=== PATIENT | female | born 1965 | race Caucasian/White ===

== ENCOUNTER 2017-01-13 19:53 | Inpatient (IN) ==
[2017-01-13] MEDS ORDERED: 0.9 % Sodium Chloride 1,000 ML IVC ONE ×3 (20:18→21:02)
--- NOTE | 2017-01-13 20:25 | Emergency Department Note ---
Disposition Clinical Impression: Colitis Sepsis Qualifiers: Sepsis type: sepsis due to unspecified organism Qualified Code(s): A41.9 - Sepsis, unspecified organism GI bleed Qualifiers: GI bleed type/associated pathology: unspecified gastrointestinal hemorrhage type Qualified Code(s): K92.2 - Gastrointestinal hemorrhage, unspecified Abdominal pain Qualifiers: Abdominal location: generalized Qualified Code(s): R10.84 - Generalized abdominal pain Disposition: Admitted As Inpatient Condition: Serious Time of Disposition: 22:07 Abdominal Pain HPI - General Chief Complaint: ED GI Bleed Stated Complaint: rectal bleeding Time Seen by Provider: 01/13/17 20:15 Source: family Mode of arrival: ambulatory Limitations: no limitations Nursing Notes Reviewed: Yes Vital Signs Reviewed: Yes - History of Present Illness HPI Narrative: 51-year-old female hx of HTN, DM, post EGD on 12/10 complaining of abdominal pain, patient's complaint of 10 out of 10 pain that she describes as lower abdominal, and diffuse. She also states that she has been having some bloody diarrhea today. She when her last colonoscopy was but she had an EGD a few weeks ago. Patient states that her pain is diffuse, she decided rectal bleeding today, her last meal was around lunch. She has been able to drink water since then. Patient has nausea and emesis as well but denies hematochezia. Pt Subjective Complaint: abdominal pain Onset (ago): day(s) Consistency: constant Location: diffuse Pain Severity: severe Pain Scale: 10 Quality: stabbing, aching Radiation: none Migration to: no migration Improves with: nothing Worsens with: nothing Associated symptoms: Reports: nausea, vomiting, hematochezia. Denies: diarrhea , fever, dysuria, hematemesis, melena - Related Data Home Medications Medication Instructions Recorded Confirmed Acetaminophen w/Cod 300-30 mg 1 tab PO Q12H PRN 06/04/16 01/13/17 [Tylenol w/Codeine #3] Albuterol Sulfate [Proair Hfa] 1 - 2 puff IH Q4-6H PRN 06/04/16 01/13/17 Amlodipine Besylate 10 mg PO DAILY 06/04/16 01/13/17 Aspirin [Ecotrin] 325 mg PO DAILY 06/04/16 01/13/17 Atorvastatin Calcium [Lipitor] 20 mg PO HS 06/04/16 01/13/17 Cholecalciferol (D-3) [Vitamin D] 2,000 unit PO DAILY 06/04/16 01/13/17 Cyclobenzaprine HCl 2.5 - 5 mg PO TID PRN 06/04/16 01/13/17 FLUoxetine HCl [Fluoxetine HCl] 40 mg PO DAILY 06/04/16 01/13/17 Ferrous Sulfate [Iron] 325 mg PO BID 06/04/16 01/13/17 Gabapentin [Neurontin] 300 mg PO TID 06/04/16 01/13/17 Glimepiride [Amaryl] 1 mg PO BID 06/04/16 01/13/17 Lisinopril/Hydrochlorothiazide 1 tab PO BID 06/04/16 01/13/17 [Zestoretic 20-12.5 mg Tablet] Loratadine [Allergy Relief] 10 mg PO DAILY 06/04/16 01/13/17 Magnesium Oxide [Magnesium] 400 mg PO BID 06/04/16 01/13/17 Pantoprazole Sodium [Protonix] 40 mg PO DAILY 06/04/16 01/13/17 Ranitidine HCl [Zantac] 150 mg PO BID 06/04/16 01/13/17 Spironolactone [Aldactone] 50 mg PO DAILY 06/04/16 01/13/17 Amitriptyline [Elavil] 25 mg PO HS 01/13/17 01/13/17 Allergies Allergy/AdvReac Type Severity Reaction Status Date / Time clonidine Allergy Blister Verified 01/13/17 20:12 All systems ED: reviewed and negative except as stated. Review of Systems: As Per HPI Constitutional: Reports: fever, chills Eyes: Denies: eye pain ENT ED: Denies: ear pain Cardiovascular: Denies: chest pain Respiratory: Denies: cough, dyspnea Gastrointestinal: Reports: as per HPI, abdominal pain, nausea, vomiting, diarrhea, hematochezia Genitourinary: Denies: urgency, dysuria Musculoskeletal: Denies: back pain Integumentary: Denies: rash, abrasion Neurological: Denies: headache Psychiatric: Denies: anxiety Abdominal Pain PMH - Past Medical History Medical history: Reports: arthritis, diabetes, GERD, hyperlipidemia, hypertension, renal disease Female Surgical History: Reports: appendectomy, Psychiatric history: Reports: anxiety - Social History Smoking status: Never smoker Alcohol use: Reports: none Drug use: Reports: none Physical Exam - General Limitations: no limitations General appearance: appears intoxicated, anxious, in distress - Eye Eye exam: Present: normal appearance - ENT ENT exam: normal exam - Neck Neck exam: Present: normal inspection - Chest Chest inspection: Present: normal inspection - Respiratory Respiratory exam: Present: normal lung sounds bilaterally. Absent: respiratory distress - Cardiovascular Cardiovascular exam: Present: normal rhythm, tachycardia - Abdominal Exam Abdominal exam: Present: tenderness, guarding, rebound Abdominal tenderness: Present: diffuse, severe - Extremities Exam Extremities exam: Present: normal inspection, full ROM - Neurological Exam Neurological exam: Present: alert, oriented X3, CN II-XII intact - Psychiatric Psychiatric exam: Present: normal affect, anxious - Skin Skin exam: Present: warm, dry, intact Course Course Narrative: 51-year-old female with diffuse abdominal pain post EGD, also has history of diverticulitis, her exam has some guarding diffusely, with a CT scan of the abdomen basic lab work CBC BMP fluids as she is moderately tachycardic. - Reevaluation(s) Reevaluation #1: Patient is criteria for septic shock given lactate of 4.0, we added a 30 mL per kilogram bolus of fluid, she got blood cultures and started him. Cipro and Flagyl antibiotics for intra-abdominal infection, the patient also has white count of 15,000, colitis on CT imaging but no evidence of ischemic colitis or bowel perforation, she does have moderate tenderness to palpation so will likely be a medicine admission with surgery consult I did page the general surgeon to discuss colitis at this time. Time: 21:49 Reevaluation #2: General surgeon evaluated the patient bedside no acute surgical abdomen, recommendations for nothing by mouth IV fluids agrees with antibiotics, I did talk with hospitalist Dr. Quiroga, they agreed to admit the patient for GI bleed sepsis meets criteria for septic shock repeat lactic acid is ordered, antibiotics cultures lactate were started within the 3 hours and the patient is hemodynamically stable now blood pressures in the 100s over 50s, Time: 22:52 - Consultations Consultation #1: I did consult general surgeon Dr. Arce she is evidence of a colitis, inflammatory versus infectious, cannot rule out ischemic would like surgical input given guarding, also patient's lactic acidosis of 4.0 technically meets criteria for septic shock given elevated lactate so 30 mL Perkg bolus, initial cultures and lactate repeat lactate were ordered within the septic window, reassessments will will be performed Vital Signs Temperature 97.7 F 01/13/17 20:09 Pulse Rate 130 01/13/17 20:09 Respiratory Rate 20 01/13/17 20:09 Blood Pressure 121/83 01/13/17 20:09 O2 Sat by Pulse Oximetry 100 01/13/17 20:09 Temperature 98.7 F 01/14/17 00:41 Pulse Rate 105 01/13/17 23:52 Respiratory Rate 16 01/13/17 23:52 Blood Pressure 100/62 01/13/17 23:52 O2 Sat by Pulse Oximetry 96 01/13/17 23:52 Oxygen Delivery Oxygen Delivery Room Air Abdominal Pain - Differential Diagnosis Differential Diagnosis: Likely: acute appendicitis, constipation, diverticulitis , diverticulosis, gastroenteritis - Medical Records Medical records reviewed: Yes I reviewed the patient's medical records. - Lab Data Lab results reviewed: Yes I reviewed the patient's lab results. Result diagrams: 01/13/17 20:24 01/13/17 20:24 Lab Results 01/13/17 01/13/17 01/13/17 Range/Units 20:10 20:24 20:24 WBC 15.5 H (4.3-11.1) K/mcL RBC 4.51 (3.82-4.97) M/mcL Hgb 14.2 (11.5-15.4) g/dL Hct 39.6 (35.3-44.9) % MCV 87.8 (83.0-100.0) fL MCH 31.5 (28.0-33.3) pg MCHC 35.9 H (31.6-35.5) g/dL RDW 13.1 (11.5-14.5) % Plt Count 277 (140-400) K/mcL MPV 10.7 (9.4-12.4) fL Immature Gran % 1.2 (0-4) % Seg Neutrophils % 82.9 % Lymphocytes % 10.5 % Monocytes % 4.9 % Eosinophils % 0.1 % Basophils % 0.4 % Neutrophils # 12.8 H (1.6-8.9) K/mcL Lymphocytes # 1.6 (0.6-4.6) K/mcL Monocytes # 0.8 (0.0-1.3) K/mcL Eosinophils # 0.0 (0.0-0.6) K/mcL Basophils # 0.1 (0.0-0.2) K/mcL PT 10.3 (9.4-12.1) Seconds INR 1.0 APTT 26.7 (26.0-36.0) Seconds Sodium (136-145) mEq/L Potassium (3.5-4.5) mEq/L Chloride (98-109) mEq/L Carbon Dioxide (19-29) mEq/L BUN (7-20) mg/dL Creatinine (0.57-1.11) mg/dL Est GFR ( Amer) (> 60) Est GFR (Non-Af Amer) (> 60) BUN/Creatinine Ratio (6-26) Glucose (70-99) mg/dL Calculated Osmolality (280-300) Lactic Acid (0.5-2.2) mmol/L Calcium (8.6-10.8) mg/dL Total Bilirubin (0.2-1.2) mg/dL AST (5-34) Units/L ALT (0-55) Units/L Alkaline Phosphatase (38-126) Units/L Serum Total Protein (6.0-8.3) g/dL Albumin (3.5-5.0) g/dL Globulin (2.4-3.5) g/dL Albumin/Globulin Ratio (1.1-2.2) Urine Color Yellow (Yellow) Urine Clarity Cloudy A (Clear) Urine pH 6.0 (5.0-8.0) pH Units Ur Specific [place] 1.027 H (1.010-1.025) Urine Protein Trace (Neg-Trace) mg/dL Urine Glucose (UA) 250 H (Normal) mg/dL Urine Ketones Trace H (Negative) mg/dL Urine Blood Moderate H (Negative) Urine Nitrite Negative (Negative) Urine Bilirubin Small H (Negative) Urine Urobilinogen Normal (Normal) mg/dL Ur Leukocyte Esterase Moderate H (Negative) Urine Microscopic RBC 50-100 H (0-3) per hpf Urine Microscopic WBC 50-100 H (0-3) per hpf Ur Squamous Epith Cells Many H (None-Few) per lpf Urine Bacteria None Seen (None-Few) per hpf Hyaline Casts None Seen (None-Few) per lpf Ur Culture Indicated? YES A (NO) Blood Type Antibody Screen 01/13/17 01/13/17 01/13/17 Range/Units 20:24 20:24 20:43 WBC (4.3-11.1) K/mcL RBC (3.82-4.97) M/mcL Hgb (11.5-15.4) g/dL Hct (35.3-44.9) % MCV (83.0-100.0) fL MCH (28.0-33.3) pg MCHC (31.6-35.5) g/dL RDW (11.5-14.5) % Plt Count (140-400) K/mcL MPV (9.4-12.4) fL Immature Gran % (0-4) % Seg Neutrophils % % Lymphocytes % % Monocytes % % Eosinophils % % Basophils % % Neutrophils # (1.6-8.9) K/mcL Lymphocytes # (0.6-4.6) K/mcL Monocytes # (0.0-1.3) K/mcL Eosinophils # (0.0-0.6) K/mcL Basophils # (0.0-0.2) K/mcL PT (9.4-12.1) Seconds INR APTT (26.0-36.0) Seconds Sodium 133 L (136-145) mEq/L Potassium 4.5 (3.5-4.5) mEq/L Chloride 98 (98-109) mEq/L Carbon Dioxide 18 L (19-29) mEq/L BUN 20 (7-20) mg/dL Creatinine 1.17 H (0.57-1.11) mg/dL Est GFR ( Amer) 59 L (> 60) Est GFR (Non-Af Amer) 48 L (> 60) BUN/Creatinine Ratio 17 (6-26) Glucose 234 H (70-99) mg/dL Calculated Osmolality 286 (280-300) Lactic Acid 4.0 H* (0.5-2.2) mmol/L Calcium 9.8 (8.6-10.8) mg/dL Total Bilirubin 0.5 (0.2-1.2) mg/dL AST 13 (5-34) Units/L ALT 24 (0-55) Units/L Alkaline Phosphatase 93 (38-126) Units/L Serum Total Protein 7.6 (6.0-8.3) g/dL Albumin 3.8 (3.5-5.0) g/dL Globulin 3.8 H (2.4-3.5) g/dL Albumin/Globulin Ratio 1.0 L (1.1-2.2) Urine Color (Yellow) Urine Clarity (Clear) Urine pH (5.0-8.0) pH Units Ur Specific [place] (1.010-1.025) Urine Protein (Neg-Trace) mg/dL Urine Glucose (UA) (Normal) mg/dL Urine Ketones (Negative) mg/dL Urine Blood (Negative) Urine Nitrite (Negative) Urine Bilirubin (Negative) Urine Urobilinogen (Normal) mg/dL Ur Leukocyte Esterase (Negative) Urine Microscopic RBC (0-3) per hpf Urine Microscopic WBC (0-3) per hpf Ur Squamous Epith Cells (None-Few) per lpf Urine Bacteria (None-Few) per hpf Hyaline Casts (None-Few) per lpf Ur Culture Indicated? (NO) Blood Type O POSITIVE Antibody Screen NEGATIVE - Radiology Data Radiology results reviewed: Yes I reviewed the patient's radiology results. Abdomen/Pelvis CT 01/13/17 20:19 IMPRESSION: 1. Mild inflammation surrounding the descending colon. Findings are nonspecific and may represent infectious or inflammatory colitis. However sequela of recent colonoscopy is also in the differential. 2. No pneumoperitoneum. 3. Colonic diverticulosis. 4. Small 1.9 cm fatty lesion with a thin soft tissue rim in the lower pelvis, immediately anterior to the ureters. This is not seen on the prior study and likely represents sequela of prior epiploic appendagitis or omental infarct. 5. Hepatic steatosis. D/ / 01/13/2017 21:36:02 Joel Laird MD / Freda Lowe Interpreting Provider: Joel Laird MD - EKG Data EKG attestation: Yes I reviewed and interpreted this EKG. EKG shows normal: sinus rhythm (122 bpm GA 184 QRS [address] segment elevations or depressions) Rate: tachycardia Interpretation: no acute changes - Core Measures AMI Core Measures Followed: No Critical Care Time Critical Care Time: Yes Total Critical Care Time: 35 Attestation: Critical care performed: Time is exclusive of separately billable procedures. Time includes: direct patient care, patient reassessment, coordination of patient care, interpretation of data (laboratory data, radiology data, and respiratory data), review of patient's medical records, medical consultation and documentation of patient care. Procedures included in critical care time: Procedures excluded from critical care time: Attestation Statement - Attestation Attestation: I, Alejandro Valle MD, personally evaluated this patient and discussed their management with the resident physician. I reviewed the resident's note and agree with the documented findings, medical decision making, and plan of care. 51-year-old female presents to the emergency department complaining of mid lower abdominal pain which started earlier today associated with bloody diarrhea. She also has had some nausea and vomiting. No melena or hematemesis. No fever. Patient did have an EGD about a week ago. She did not have a colonoscopy. No prior history of GI bleeding. On examination patient is a well-developed well-nourished female in no acute distress. She is alert and oriented 3. There is no cyanosis or diaphoresis. Chest is nontender to palpation. Breath sounds are clear and equal bilaterally. Heart regular rate and rhythm. Abdomen is soft with increased bowel sounds. Mild diffuse tenderness with moderate mid lower abdominal tenderness. No guarding or rebound tenderness. No CVA tenderness. Labs reviewed. CT of the abdomen and pelvis with IV contrast showed: 1. Mild inflammation surrounding the descending colon. Findings are nonspecific and may represent infectious or inflammatory colitis. However sequela of recent colonoscopy is also in the differential. 2. No pneumoperitoneum. 3. Colonic diverticulosis. 4. Small 1.9 cm fatty lesion with a thin soft tissue rim in the lower pelvis, immediately anterior to the ureters. This is not seen on the prior study and likely represents sequela of prior epiploic appendagitis or omental infarct. 5. Hepatic steatosis. Dr. Rodriguez discussed the case with the surgeon on-call, Dr. Gruber. He did evaluate the patient in the emergency department and recommended admission by the hospitalist. The hospitalist, Dr. Rubin, was consulted and accepted the admission of the patient. Sepsis Reassessment Note - Evaluation Current Stage of Sepsis: septic shock Possible Source of Sepsis: GI tract/intra-abdominal - Focused Exam Date of Encounter: 01/13/17 Time of Encounter: 20:00 Vital Signs: Vital Signs Temp Pulse Resp BP Pulse Ox 01/13/17 22:15 108 18 105/42 98 01/13/17 20:09 97.7 F 130 20 121/83 100 Respiratory Exam: Present: CTA bilaterally Cardiovascular Exam: Present: tachycardia Capillary Refill: < 2 seconds Peripheral Pulse Strength: 0+ absent Peripheral Pulse Location: Radial Skin Exam: normal turgor
[2017-01-13 20:28] LABS: Bilirubin,Urine Small (Negative); Blood,Urine Moderate (Negative); Clarity,Urine Cloudy (Clear); Color,Urine Yellow (Yellow); Glucose,Urine (UA) 250 mg/dL (Normal); Ketones,Urine Trace mg/dL (Negative); Leukocyte Esterase,Urine Moderate (Negative); Nitrite,Urine Negative (Negative); Protein,Urine Trace mg/dL (Neg-Trace); Specific Gravity,Urine 1.027 (1.010-1.025); Urobilinogen,Urine Normal (Normal)
[2017-01-13 20:30] LABS: Bacteria,Urine None Seen per hpf (None-Few); Hyaline Casts,Urine None Seen per lpf (None-Few); RBC,Urine 50-100 per hpf (0-3); Squamous Epithelial Cell,Urine Many per lpf (None-Few); WBC,Urine 50-100 per hpf (0-3)
[2017-01-13] MEDS ORDERED: Ondansetron 4 MG/2 ML VIAL IVP ONE ×2 (20:40→21:47)
[2017-01-13] MEDS ORDERED: *HR* HYDROmorphone (PF) 1 MG/ML SYRINGE IVP ONE ×2 (20:40→21:47)
[2017-01-13 20:46] LABS: Basophils # 0.1 K/mcL (0.0-0.2); Basophils % 0.4 %; Eosinophils % 0.1 %; Hematocrit 39.6 % (35.3-44.9); Hemoglobin 14.2 g/dL (11.5-15.4); Immature Granulocytes % 1.2 % (0-4); Lymphocytes # 1.6 K/mcL (0.6-4.6); Lymphocytes % 10.5 %; Mean Corpuscular HGB Conc 35.9 g/dL (31.6-35.5); Mean Corpuscular Hemoglobin 31.5 pg (28.0-33.3); Mean Corpuscular Volume 87.8 fL (83.0-100.0); Mean Platelet Volume 10.7 fL (9.4-12.4); Monocytes # 0.8 K/mcL (0.0-1.3); Monocytes % 4.9 %; Neutrophils # 12.8 K/mcL (1.6-8.9); Platelet Count 277 K/mcL (140-400); Red Blood Count 4.51 M/mcL (3.82-4.97); Red Cell Distribution Width 13.1 % (11.5-14.5); Segmented Neutrophils % 82.9 %
[2017-01-13 20:47] LABS: Albumin 3.8 g/dL (3.5-5.0); Bilirubin,Total 0.5 mg/dL (0.2-1.2); Calcium 9.8 mg/dL (8.6-10.8); Globulin 3.8 g/dL (2.4-3.5); Potassium 4.5 mEq/L (3.5-4.5); Total Protein 7.6 g/dL (6.0-8.3)
[2017-01-13 20:55] LABS: Prothrombin Time 10.3 Seconds (9.4-12.1)
[2017-01-13 20:57] LABS: Activated Partial Thrombo Time 26.7 Seconds (26.0-36.0)
[2017-01-13] MEDS ORDERED: MetroNIDAZOLE 500 MG/100 ML 500 MG/100 ML BAG IVPB ONE (21:38)
[2017-01-13] MEDS ORDERED: Metoclopramide 10 MG/2 ML VIAL IVP ONE (21:58)
--- NOTE | 2017-01-13 22:26 | General Surgery Consult Note ---
Date of Encounter: 01/13/17 Time of Encounter: 22:22 Assessment and Plan (1) Abdominal pain Current Visit: Yes Status: Acute 51F with 4 day history of abdominal pain with known gastritis and small hiatal hernia. Patient is non peritoneal; All imaging reviewed by me personally and there is a concern for a possible colitis along the descending colon. - NPO - IVF - abx: cipro, flagyl - pain control - repeat lactate in AM after aggressive resuscitation - no acute surgery - will discuss with Dr. Ulloa in AM unless her exam changes and she requires surgery overnight; Qualifiers: Abdominal location: generalized Qualified Code(s): R10.84 - Generalized abdominal pain (2) Melena Current Visit: Yes Status: Acute trend h/h likey will need colonoscopy; but will wait until after resolution of colitis - hold on chemical dvt prophylaxis - no acute surgery - will discuss with Dr. Ulloa in AM, unless her clinical status changes and she requires immediate attention overnight History of Present Illness Consult date: 01/13/17 Reason for consult: abdominal pain History of present illness: 51F with 4 day history of abdominal pain and one day history of melena. The patient states that the pain started on 01/10, generalized in nature, but with most pain being localized to the suprapubic region (no reports of dysuria or pain with urination). Since then the pain has gotten progressively worse and radiating to the epigastric region. No reports of fevers, chills, chest pain nor shortness of breath, but the patient does report nausea, vomiting and poor PO intake. Of note the poor PO intake has been ongoing for about 2 weeks. She also reports intermittent diarrhea. She recently had a cholecystectomy as well as an EGD (demonstrated gastritis, no ulcers). She also had and UGI which was concerning for a small hiatal hernia. She presents to the ED for further evaluation In regard to her melena, she states that occasionally has it when she finds herself constipated. She only had one episode yesterday. patient reports her last colonoscopy was about 3 years prior with no remarkable findings or concerns. Past Med Surg Social Fam HX - Past Medical History Medical history: arthritis, diabetes, GERD, hyperlipidemia, hypertension, renal disease Psychiatric history: anxiety - Past Surgical History Surgical History: appendectomy, cholecystectomy - Social History Smoking Status: Never smoker Smokeless Tobacco Status: No Alcohol use: none Drug use: none - Additional Family History Additional family history: non contributory Medications and Allergies Acetaminophen w/Cod 300-30 mg [Tylenol w/Codeine #3] 1 tab PO Q12H PRN 06/04/16 [History] Albuterol Sulfate [Proair Hfa] 1 - 2 puff IH Q4-6H PRN 06/04/16 [History] Amlodipine Besylate 10 mg PO DAILY 06/04/16 [History] Aspirin [Ecotrin] 325 mg PO DAILY 06/04/16 [History] Atorvastatin Calcium [Lipitor] 20 mg PO HS 06/04/16 [History] Cholecalciferol (D-3) [Vitamin D] 2,000 unit PO DAILY 06/04/16 [History] Cyclobenzaprine HCl 2.5 - 5 mg PO TID PRN 06/04/16 [History] FLUoxetine HCl [Fluoxetine HCl] 40 mg PO DAILY 06/04/16 [History] Ferrous Sulfate [Iron] 325 mg PO BID 06/04/16 [History] Gabapentin [Neurontin] 300 mg PO TID 06/04/16 [History] Glimepiride [Amaryl] 1 mg PO BID 06/04/16 [History] Lisinopril/Hydrochlorothiazide [Zestoretic 20-12.5 mg Tablet] 1 tab PO BID 06/04 [History] Loratadine [Allergy Relief] 10 mg PO DAILY 06/04/16 [History] Magnesium Oxide [Magnesium] 400 mg PO BID 06/04/16 [History] Pantoprazole Sodium [Protonix] 40 mg PO DAILY 06/04/16 [History] Ranitidine HCl [Zantac] 150 mg PO BID 06/04/16 [History] Spironolactone [Aldactone] 50 mg PO DAILY 06/04/16 [History] 3 Allergy/AdvReac Type Severity Reaction Status Date / Time clonidine Allergy Blister Verified 01/13/17 20:12 Review of Systems All systems PM: A 10-system review of systems was performed and is negative for pertinent findings except as documented above in the HPI. General Surgery Exam Initial Vital Signs Temp Pulse Resp BP Pulse Ox 97.7 F 130 20 121/83 100 01/13/17 20:09 01/13/17 20:09 01/13/17 20:09 01/13/17 20:09 01/13/17 20:09 - General physical appearance well developed, well nourished, other (mild distress) - Eyes normal ocular movement - ENT normocephalic - Neck no lymphadectomy - Respiratory normal expansion, normal respiratory effort - Cardiovascular Cardiovascular exam: Present: RRR - Abdomen Abdomen general surgery: Present: soft, distended, tender Abdominal Tenderness: Present: epigastic, suprapubic - Integumentary Integumentary general surgery: Present: warm and dry - Neurologic Present: CN 2-12 grossly intact - Musculoskeletal Present: other (FROM in UE/LE bilaterally) - Psychiatric Psychiatric general surgery: Present: A&Ox3 Exam Initial Vital Signs Temp Pulse Resp BP Pulse Ox 97.7 F 130 20 121/83 100 01/13/17 20:09 01/13/17 20:09 01/13/17 20:09 01/13/17 20:09 01/13/17 20:09 Results - Labs 01/13/17 20:24 01/13/17 20:24 Abnormal lab results WBC 15.5 K/mcL (4.3-11.1) H 01/13/17 20:24 MCHC 35.9 g/dL (31.6-35.5) H 01/13/17 20:24 Neutrophils # 12.8 K/mcL (1.6-8.9) H 01/13/17 20:24 Sodium 133 mEq/L (136-145) L 01/13/17 20:24 Carbon Dioxide 18 mEq/L (19-29) L 01/13/17 20:24 Creatinine 1.17 mg/dL (0.57-1.11) H 01/13/17 20:24 Est GFR ( Amer) 59 (> 60) L 01/13/17 20:24 Est GFR (Non-Af Amer) 48 (> 60) L 01/13/17 20:24 Glucose 234 mg/dL (70-99) H 01/13/17 20:24 Lactic Acid 4.0 mmol/L (0.5-2.2) H* 01/13/17 20:24 Globulin 3.8 g/dL (2.4-3.5) H 01/13/17 20:24 Albumin/Globulin Ratio 1.0 (1.1-2.2) L 01/13/17 20:24 Urine Clarity Cloudy (Clear) A 01/13/17 20:10 Ur Specific [place] 1.027 (1.010-1.025) H 01/13/17 20:10 Urine Glucose (UA) 250 mg/dL (Normal) H 01/13/17 20:10 Urine Ketones Trace mg/dL (Negative) H 01/13/17 20:10 Urine Blood Moderate (Negative) H 01/13/17 20:10 Urine Bilirubin Small (Negative) H 01/13/17 20:10 Ur Leukocyte Esterase Moderate (Negative) H 01/13/17 20:10 Urine Microscopic RBC 50-100 per hpf (0-3) H 01/13/17 20:10 Urine Microscopic WBC 50-100 per hpf (0-3) H 01/13/17 20:10 Ur Squamous Epith Cells Many per lpf (None-Few) H 01/13/17 20:10 Ur Culture Indicated? YES (NO) A 01/13/17 20:10 Diabetes panel 01/13/17 Range/Units 20:24 Sodium 133 L (136-145) mEq/L Potassium 4.5 (3.5-4.5) mEq/L Chloride 98 (98-109) mEq/L Carbon Dioxide 18 L (19-29) mEq/L BUN 20 (7-20) mg/dL Creatinine 1.17 H (0.57-1.11) mg/dL Glucose 234 H (70-99) mg/dL Calcium 9.8 (8.6-10.8) mg/dL AST 13 (5-34) Units/L ALT 24 (0-55) Units/L Alkaline Phosphatase 93 (38-126) Units/L Albumin 3.8 (3.5-5.0) g/dL Calcium panel 01/13/17 Range/Units 20:24 Calcium 9.8 (8.6-10.8) mg/dL Albumin 3.8 (3.5-5.0) g/dL Pituitary panel 01/13/17 Range/Units 20:24 Sodium 133 L (136-145) mEq/L Potassium 4.5 (3.5-4.5) mEq/L Chloride 98 (98-109) mEq/L Carbon Dioxide 18 L (19-29) mEq/L BUN 20 (7-20) mg/dL Creatinine 1.17 H (0.57-1.11) mg/dL Glucose 234 H (70-99) mg/dL Calcium 9.8 (8.6-10.8) mg/dL Adrenal panel 01/13/17 Range/Units 20:24 Sodium 133 L (136-145) mEq/L Potassium 4.5 (3.5-4.5) mEq/L Chloride 98 (98-109) mEq/L Carbon Dioxide 18 L (19-29) mEq/L BUN 20 (7-20) mg/dL Creatinine 1.17 H (0.57-1.11) mg/dL Glucose 234 H (70-99) mg/dL Calcium 9.8 (8.6-10.8) mg/dL Total Bilirubin 0.5 (0.2-1.2) mg/dL AST 13 (5-34) Units/L ALT 24 (0-55) Units/L Alkaline Phosphatase 93 (38-126) Units/L Albumin 3.8 (3.5-5.0) g/dL All other labs normal. - Imaging CT scan - abdomen: report reviewed, image reviewed CT scan - pelvis: report reviewed, image reviewed Consult Discharge Plan - Plan Referrals: Nela Naylor DO [Primary Care Provider] -
[2017-01-14] MEDS ORDERED: Naloxone 0.4 MG/ML INJ IVP PRN (01:22)
[2017-01-14] MEDS ORDERED: Ondansetron ODT 4 MG TAB.RAPDIS SL PRN (01:22)
[2017-01-14] MEDS ORDERED: *HR* Morphine 2 MG/ML SYRINGE IVP PRN (01:24)
[2017-01-14] MEDS ORDERED: 0.9 % Sodium Chloride 1,000 ML IVC SCH (01:30)
--- NOTE | 2017-01-14 02:49 | Internal Med History&Physical ---
<Araceli Huerta - Last Filed: 01/14/17 03:47> Date of Encounter: 01/14/17 Time of Encounter: 23:45 Assessment and Plan (1) Septic shock Current visit: Yes Status: Acute Patient reports abdominal pain for 4 days. She has both diarrhea and constipation. She reports blood in her stool. Most likely Colitis per abdominal CT showing inflammation in descending colon suspicious for colitis. morphine cipro flagyl NPO (2) Abdominal pain Current visit: Yes Status: Acute Patient reports abdominal pain for 4 days. She has both diarrhea and constipation. She reports blood in her stool. Most likely Colitis per abdominal CT showing inflammation in descending colon suspicious for colitis. morphine cipro flagyl NPO Qualifiers: Abdominal location: generalized Qualified Code(s): R10.84 - Generalized abdominal pain (3) Melena Current visit: Yes Status: Acute (4) UTI (urinary tract infection) Current visit: Yes Status: Acute (5) SWEETIE (acute kidney injury) Current visit: Yes Status: Acute (6) Diabetes Current visit: Yes Status: Acute (7) DVT prophylaxis Current visit: Yes Status: Acute Internal Medicine - H&P: HPI Chief complaint: abdominal pain Admitted From: Emergency Dept Plans for Post Hospital Care: Home History of present illness: Ms. Mireles is a 51 year old female Past Med Surg Social Fam HX - Past Medical History Medical history: arthritis, diabetes, GERD, hyperlipidemia, hypertension, renal disease Psychiatric history: anxiety - Past Surgical History Surgical History: appendectomy, , cholecystectomy - Social History Smoking Status: Never smoker Smokeless Tobacco Status: No Alcohol use: none Drug use: none Current living situation: Home Activity Level: Independent ambulation - Family History Father Hx Family Endocrine Disorder: Yes (diabetes) Internal Medicine - H&P: Meds Acetaminophen w/Cod 300-30 mg [Tylenol w/Codeine #3] 1 tab PO Q12H PRN 06/04/16 [History] Albuterol Sulfate [Proair Hfa] 1 - 2 puff IH Q4-6H PRN 06/04/16 [History] Amlodipine Besylate 10 mg PO DAILY 06/04/16 [History] Aspirin [Ecotrin] 325 mg PO DAILY 06/04/16 [History] Atorvastatin Calcium [Lipitor] 20 mg PO HS 06/04/16 [History] Cholecalciferol (D-3) [Vitamin D] 2,000 unit PO DAILY 06/04/16 [History] Cyclobenzaprine HCl 2.5 - 5 mg PO TID PRN 06/04/16 [History] FLUoxetine HCl [Fluoxetine HCl] 40 mg PO DAILY 06/04/16 [History] Ferrous Sulfate [Iron] 325 mg PO BID 06/04/16 [History] Gabapentin [Neurontin] 300 mg PO TID 06/04/16 [History] Glimepiride [Amaryl] 1 mg PO BID 06/04/16 [History] Lisinopril/Hydrochlorothiazide [Zestoretic 20-12.5 mg Tablet] 1 tab PO BID 06/04 [History] Loratadine [Allergy Relief] 10 mg PO DAILY 06/04/16 [History] Magnesium Oxide [Magnesium] 400 mg PO BID 06/04/16 [History] Pantoprazole Sodium [Protonix] 40 mg PO DAILY 06/04/16 [History] Ranitidine HCl [Zantac] 150 mg PO BID 06/04/16 [History] Spironolactone [Aldactone] 50 mg PO DAILY 06/04/16 [History] Amitriptyline [Elavil] 25 mg PO HS 01/13/17 [History] 3 Allergy/AdvReac Type Severity Reaction Status Date / Time clonidine Allergy Blister Verified 01/13/17 20:12 All Systems PM: A 10-system review of systems was performed and is negative for pertinent findings except as documented above in the HPI. - Constitutional Constitutional: no chills, no fever(s) - EENT Eyes: no change in vision - Cardiovascular Cardiovascular ROS IM: no chest pain, no edema, no palpitations - Respiratory Respiratory: no cough, no dyspnea, no wheezing, no stridor - Gastrointestinal Gastrointestinal: abdominal pain, constipation, diarrhea, hematochezia, melena, nausea - Genitourinary Genitourinary: no dysuria, no urinary frequency - Integumentary Integumentary IM: no rash - Neurological Neurological ROS: no dizziness, no headache(s) - Constitutional Vitals: Temp Pulse Resp BP Pulse Ox 98.7 F 105 16 100/62 96 01/14/17 00:41 01/13/17 23:52 01/13/17 23:52 01/13/17 23:52 01/13/17 23:52 General appearance: Present: A&O X 3, pleasant. Absent: no acute distress - Head Head exam: Present: atraumatic, normocephalic - Eye Eye exam: Present: conjunctival injection, normal appearance - Neck Neck exam general surgery: Present: supple. Absent: tenderness - Respiratory Respiratory exam: Present: CTAB. Absent: rales, stridor, wheezes - Cardiovascular Cardiovascular exam: Present: RRR, +S1, +S2. Absent: clicks - GI/Abdominal GI/Abdominal exam: Present: normal bowel sounds, soft, tenderness (diffuse). Absent: guarding - Extremities Exam Extremities exam: Present: normal inspection - Psychiatric Psychiatric exam: Present: normal affect, normal mood - Skin Skin exam: Present: dry, intact Internal Med - H&P Results - Labs CBC & Chem 7: 01/13/17 20:24 01/13/17 20:24 <Joyce Rubin - Last Filed: 01/14/17 03:57> Date of Encounter: 01/14/17 Internal Medicine - H&P: HPI History of present illness: Ms. Mireles is a 51 year old female All Systems PM: A 10-system review of systems was performed and is negative for pertinent findings except as documented above in the HPI. - Constitutional Vitals: Temp Pulse Resp BP Pulse Ox 98.7 F 105 16 100/62 96 01/14/17 00:41 01/13/17 23:52 01/13/17 23:52 01/13/17 23:52 01/13/17 23:52 Internal Med - H&P Results - Labs CBC & Chem 7: 01/13/17 20:24 01/13/17 20:24 - Attending Attestation Patient was seen Dec , I personally seen and examined the patient and discuss with resident. Chest clear to auscultation percussion wheezing rales in the abdomen soft lower abdomen abdominal tenderness without any rebound tenderness no organomegaly was on active extremities no edema neuro nonfocal. Patient diagnosed with colitis. Surgery is consulted. IV ciprofloxacin was started. Follow hemoglobin and white count. Will need colonoscopy.
[2017-01-14] MEDS: *HR* Promethazine 25 MG/ML VIAL IM PRN ×3 (04:47→18:22)
[2017-01-14 05:13] LABS: Basophils % 0.4 %; Eosinophils % 0.2 %; Hematocrit 33.2 % (35.3-44.9); Immature Granulocytes % 0.5 % (0-4); Lymphocytes # 1.6 K/mcL (0.6-4.6); Lymphocytes % 15.1 %; Mean Corpuscular HGB Conc 34.6 g/dL (31.6-35.5); Mean Corpuscular Hemoglobin 30.9 pg (28.0-33.3); Mean Corpuscular Volume 89.2 fL (83.0-100.0); Mean Platelet Volume 10.4 fL (9.4-12.4); Monocytes # 0.8 K/mcL (0.0-1.3); Monocytes % 7.5 %; Neutrophils # 8.1 K/mcL (1.6-8.9); Platelet Count 206 K/mcL (140-400); Red Blood Count 3.72 M/mcL (3.82-4.97); Red Cell Distribution Width 13.2 % (11.5-14.5); Segmented Neutrophils % 76.3 %
[2017-01-14 05:14] LABS: Hemoglobin 11.5 g/dL (11.5-15.4)
[2017-01-14 05:25] LABS: BUN/Creatinine Ratio 17 (6-26); Blood Urea Nitrogen 14 mg/dL (7-20); Carbon Dioxide 18 mEq/L (19-29); Chloride 105 mEq/L (98-109); Glucose 156 mg/dL (70-99); Osmolality,Calculated 282 (280-300); Potassium 4.3 mEq/L (3.5-4.5); Sodium 134 mEq/L (136-145); eGFR For African Americans > 60 (> 60); eGFR For Non-African Americans > 60 (> 60)
[2017-01-14] MEDS: *HR* Morphine 2 MG/ML SYRINGE IVP PRN ×6 (05:25→23:00)
[2017-01-14 05:26] LABS: Calcium 7.9 mg/dL (8.6-10.8)
[2017-01-14] MEDS ORDERED: Sodium Bicarbonate 100 MEQ in 0.45 % Sodium Chloride 1,000 ML IVC SCH (08:30)
[2017-01-14] MEDS: Pantoprazole 40 MG VIAL IVP SCH (09:37)
[2017-01-14] MEDS: Insulin LISPRO 300 UNITS/3 ML VIAL SQ SCH ×3 (09:44→18:36)
[2017-01-14] MEDS: MetroNIDAZOLE 500 MG/100 ML 500 MG/100 ML BAG IVPB SCH ×3 (09:45→23:55)
[2017-01-14] MEDS: Ondansetron 4 MG/2 ML VIAL IVP PRN ×2 (14:00→23:00)
[2017-01-14 15:05] LABS: Hematocrit 30.7 % (35.3-44.9); Hemoglobin 10.8 g/dL (11.5-15.4)
[2017-01-14] MEDS: *HR* HYDROmorphone (PF) 1 MG/ML SYRINGE IVP PRN (15:07)
[2017-01-14] MEDS ORDERED: Dextrose Gel 15 GM PO PRN ×2 (15:09)
[2017-01-14] MEDS ORDERED: D5% in Water 1,000 ML IVC PRN (15:09)
[2017-01-14] MEDS ORDERED: *HR* Dextrose 50 % in Water (Syg) 50 ML SYRINGE IVP PRN (15:09)
--- NOTE | 2017-01-14 16:20 | Internal Med Progress Note ---
Date of Encounter: 01/14/17 Time of Encounter: 13:25 - Assessment and plan (1) Sepsis Current Visit: Yes Status: Resolved Assessment and plan: Secondary to Colitis Given clinical presentation, appears to be ischemic colitis continue empiric abx NPO IV fluids pain control awaiting surgery follow up lactic acidosis resolved Qualifiers: Sepsis type: sepsis due to unspecified organism Qualified Code(s): A41.9 - Sepsis, unspecified organism (2) Colitis Current Visit: Yes Status: Acute Assessment and plan: as listed above (3) UTI (urinary tract infection) Current Visit: Yes Status: Acute Assessment and plan: continue abx f/u urine cultures Qualifiers: Urinary tract infection type: site unspecified Hematuria presence: without hematuria Qualified Code(s): N39.0 - Urinary tract infection, site not specified (4) Abdominal pain Current Visit: Yes Status: Acute Assessment and plan: secondary to colitis plan as listed above Qualifiers: Abdominal location: generalized Qualified Code(s): R10.84 - Generalized abdominal pain (5) Melena Current Visit: Yes Status: Acute Assessment and plan: continue to closely monitor H&H q6h transfuse for Hgb<8 or if clinically symptomatic (6) SWEETIE (acute kidney injury) Current Visit: Yes Status: Resolved Assessment and plan: resolved renal function back to baseline continue to monitor renal function (7) DVT prophylaxis Current Visit: Yes Status: Acute Assessment and plan: SCD (8) Diabetes Current Visit: Yes Status: Chronic Assessment and plan: continue sliding scale insulin algorithm accuchecks q6h while NPO Qualifiers: Diabetes mellitus type: type 2 Diabetes mellitus complication status: with unspecified complications 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 insulin use status Qualified Code(s): E11.8 - Type 2 diabetes mellitus with unspecified complications (9) Hypertension Current Visit: Yes Status: Chronic Assessment and plan: History of hypertension, however BP within acceptable range despite holding antihypertensive medications Will continue to closely monitor Qualifiers: Hypertension type: essential hypertension Qualified Code(s): I10 - Essential (primary) hypertension (10) Obesity (BMI 30-39.9) Current Visit: Yes Status: Chronic (11) Metabolic acidosis Current Visit: Yes Status: Acute Assessment and plan: secondary to GI loses Bicarb deficit: 4.56amp started bicarb infusion (2amp in 0.45%NS run at 125cc/hr x 2 bags) will closely monitor - Subjective Interval history: Patient seen and examined with family present at bedside. Reports of diffuse abd pain being controlled with morphine but the effects of morphine are only lasting her an hour. Has had multiple loose bloody stool bowel movements since morning. Nausea improved with Zofran and Phenergan. - Constitutional Vitals: Temp Pulse Resp BP Pulse Ox 98.0 F 97 15 129/72 95 01/14/17 15:49 01/14/17 15:49 01/14/17 15:49 01/14/17 15:49 01/14/17 15:49 General appearance: Present: cooperative, mild distress (painful distress), A&O X 3, pleasant, obese, answers questions appropriately - Head Head exam: Present: atraumatic, normocephalic - Eye Eye exam: Present: conjuntiva pink, sclera anicteric - Respiratory Respiratory exam: Present: CTAB. Absent: respiratory distress, wheezes - Cardiovascular Cardiovascular exam: Present: +S1, +S2, tachycardia - GI/Abdominal GI/Abdominal exam: Present: normal bowel sounds, tenderness (diffuse tenderness to palpation), no peritoneal signs. Absent: distended - Extremities Exam Extremities exam: Present: warm, radial pulses palpable and symmetrical. Absent : calf tenderness, pedal edema - Neurological Exam Neurological exam: Present: alert, oriented X3 Internal Medicine: Result - Labs CBC & Chem 7: 01/14/17 14:56 01/14/17 05:00 Labs: Short CBC 01/14/17 01/14/17 Range/Units 05:00 14:56 WBC 10.6 (4.3-11.1) K/mcL Hgb 11.5 D 10.8 L (11.5-15.4) g/dL Hct 33.2 L 30.7 L (35.3-44.9) % Plt Count 206 (140-400) K/mcL Neutrophils # 8.1 (1.6-8.9) K/mcL BMP 01/14/17 05:00 Sodium 134 L Potassium 4.3 Chloride 105 Carbon Dioxide 18 L BUN 14 Creatinine 0.84 Glucose 156 H Calcium 7.9 L D - ABG Interpretation ABG results: PT/INR, D-dimer PT 10.3 Seconds (9.4-12.1) 01/13/17 20:24 Consult Discharge Plan - Plan Referrals: Nela Naylor DO [Primary Care Provider] -
--- NOTE | 2017-01-14 16:25 | General Surgery Progress Note ---
Date of Encounter: 01/14/17 Time of Encounter: 16:00 - Assessment and Plan (1) Colitis Current Visit: Yes Status: Acute Continue with conservative measures including: Bowel rest IV fluids IV antibiotics- Cipro and Flagyl Supportive care and pain control Monitor hemoglobin and hematocrit Lactic acid- 4>2.1 No urgent indication for surgical intervention at this time Surgery will continue to follow and assess progress Patient will need a interval colonoscopy in the next 6-8 weeks. Subjective Patient reports: no new complaints, still having pain (cramping abdominal pain which is unchanged since admission), no flatus, blood in stool, afebrile, other (Patient feels bloated and has no appetite; Feels weak and dizzy at times) Objective Vital Signs - Last 8 Hours Temp Pulse Resp BP Pulse Ox 01/14/17 15:49 98.0 F 97 15 129/72 95 01/14/17 11:25 99.2 F 98 16 117/69 96 Intake and Output 01/14/17 01/14/17 01/14/17 07:59 15:59 23:59 Intake Total 300 / 300 Output Total 200 / 200 1100 / 1100 Balance -200 / -200 -800 / -800 Intake: IV Fluids 300 / 300 Cipro Premix 400 MG/200 ML 400 200 / 200 mg In 200 ml @ 200 mls/hr IVPB Q12HR MAX Rx#:[id number] Flagyl Premix 500 MG/100 ML 500 100 / 100 mg In 100 ml @ 100 mls/hr IVPB Q8HR MAX Rx#:[id number] Oral 0 / 0 Output: Urine 200 / 200 1100 / 1100 Other: Meal Lunch Percent of Meal Consumed 0% Stool Size Moderate Stool Consistency liquid Stool Color Bright Red Blood # Bowel Movements 1 Blood Glucose* 142 172 - General physical appearance well developed, well nourished, moderate pain - Eyes normal ocular movement - ENT dry mucosa, atraumatic, normocephalic - Neck Neck exam: trachea midline - Respiratory normal respiratory effort, clear to auscultation - Cardiovascular Cardiovascular exam: Present: RRR - Abdomen Abdomen: Present: bowel sounds present, soft, tender Abdominal Tenderness: LLQ, suprapubic - Neurologic CN 2-12 grossly intact - Musculoskeletal normal gait, normal posture - Psychiatric oriented to time, oriented to person, oriented to place, speech is normal, memory intact - Labs 01/14/17 14:56 01/14/17 05:00 Diabetes panel 01/14/17 Range/Units 05:00 Sodium 134 L (136-145) mEq/L Potassium 4.3 (3.5-4.5) mEq/L Chloride 105 (98-109) mEq/L Carbon Dioxide 18 L (19-29) mEq/L BUN 14 (7-20) mg/dL Creatinine 0.84 (0.57-1.11) mg/dL Glucose 156 H (70-99) mg/dL Calcium 7.9 L D (8.6-10.8) mg/dL Calcium panel 01/14/17 Range/Units 05:00 Calcium 7.9 L D (8.6-10.8) mg/dL Pituitary panel 01/14/17 Range/Units 05:00 Sodium 134 L (136-145) mEq/L Potassium 4.3 (3.5-4.5) mEq/L Chloride 105 (98-109) mEq/L Carbon Dioxide 18 L (19-29) mEq/L BUN 14 (7-20) mg/dL Creatinine 0.84 (0.57-1.11) mg/dL Glucose 156 H (70-99) mg/dL Calcium 7.9 L D (8.6-10.8) mg/dL Adrenal panel 01/14/17 Range/Units 05:00 Sodium 134 L (136-145) mEq/L Potassium 4.3 (3.5-4.5) mEq/L Chloride 105 (98-109) mEq/L Carbon Dioxide 18 L (19-29) mEq/L BUN 14 (7-20) mg/dL Creatinine 0.84 (0.57-1.11) mg/dL Glucose 156 H (70-99) mg/dL Calcium 7.9 L D (8.6-10.8) mg/dL Consult Discharge Plan - Plan Referrals: Nela Naylor DO [Primary Care Provider] - - Attending Attestation For this encounter, I have reviewed the LICENSED OPTICIAN or PA documentation, treatment plan, and medical decision making; and I have had face to face time with this patient.
[2017-01-14] MEDS: Sodium Bicarbonate 100 MEQ in 0.45 % Sodium Chloride 1,000 ML IVC SCH (18:25)
--- NOTE | 2017-01-14 18:54 | Electrocardiograph Report ---
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
[2017-01-14 23:21] LABS: Hematocrit 29.6 % (35.3-44.9); Hemoglobin 10.4 g/dL (11.5-15.4)
[2017-01-15] MEDS: Acetaminophen 325 MG TABLET PO PRN (00:56)
[2017-01-15] MEDS: Insulin LISPRO 300 UNITS/3 ML VIAL SQ SCH ×4 (00:59→18:10)
[2017-01-15] MEDS: Sodium Bicarbonate 100 MEQ in 0.45 % Sodium Chloride 1,000 ML IVC SCH (03:48)
[2017-01-15 04:13] LABS: Basophils % 0.4 %; Eosinophils # 0.1 K/mcL (0.0-0.6); Eosinophils % 1.2 %; Hematocrit 27.7 % (35.3-44.9); Hemoglobin 9.7 g/dL (11.5-15.4); Immature Granulocytes % 0.4 % (0-4); Lymphocytes # 1.8 K/mcL (0.6-4.6); Lymphocytes % 15.8 %; Mean Corpuscular Hemoglobin 31.4 pg (28.0-33.3); Mean Corpuscular Volume 89.6 fL (83.0-100.0); Mean Platelet Volume 10.5 fL (9.4-12.4); Monocytes # 0.9 K/mcL (0.0-1.3); Monocytes % 7.6 %; Neutrophils # 8.4 K/mcL (1.6-8.9); Platelet Count 156 K/mcL (140-400); Red Blood Count 3.09 M/mcL (3.82-4.97); Red Cell Distribution Width 13.2 % (11.5-14.5); Segmented Neutrophils % 74.6 %
[2017-01-15 04:24] LABS: BUN/Creatinine Ratio 10 (6-26); Blood Urea Nitrogen 8 mg/dL (7-20); Calcium 7.8 mg/dL (8.6-10.8); Carbon Dioxide 26 mEq/L (19-29); Chloride 98 mEq/L (98-109); Glucose 156 mg/dL (70-99); Magnesium 1.1 mg/dL (1.6-2.6); Osmolality,Calculated 282 (280-300); Phosphorous 2.9 mg/dL (2.3-4.7); Potassium 3.7 mEq/L (3.5-4.5); Sodium 135 mEq/L (136-145); eGFR For African Americans > 60 (> 60); eGFR For Non-African Americans > 60 (> 60)
[2017-01-15] MEDS: Pantoprazole 40 MG VIAL IVP SCH ×2 (08:30→18:04)
[2017-01-15] MEDS: Ondansetron 4 MG/2 ML VIAL IVP PRN (08:31)
[2017-01-15] MEDS: MetroNIDAZOLE 500 MG/100 ML 500 MG/100 ML BAG IVPB SCH ×2 (08:34→16:30)
[2017-01-15] MEDS: *HR* HYDROmorphone (PF) 1 MG/ML SYRINGE IVP PRN ×2 (12:03→21:49)
[2017-01-15] MEDS: Vancomycin 1,250 MG in D5% in Water 250 ML IVPB SCH ×2 (12:04→22:21)
[2017-01-15] MEDS: 0.9 % Sodium Chloride 1,000 ML IVC SCH (12:53)
[2017-01-15 12:56] LABS: Hematocrit 27.5 % (35.3-44.9); Hemoglobin 9.4 g/dL (11.5-15.4)
[2017-01-15] MEDS: *HR* Promethazine 25 MG/ML VIAL IV PRN ×2 (13:00→22:21)
--- NOTE | 2017-01-15 13:49 | General Surgery Progress Note ---
Date of Encounter: 01/15/17 Time of Encounter: 13:40 - Assessment and Plan (1) Colitis Current Visit: Yes Status: Acute Abdominal discomfort remains. She reports 1 epsiode of bloody BM today (last on 01/14). Hgb has 1 gram drop in the last 24 hours (10.4 to 9.4). Given that she reports only one BM today, this could also be explained by dilution as pt has received a total of 5500 ml (TIVF) this admission. VSS. Lactic acid- 4>2.1 Plan: 1. Continue with conservative measures including Bowel rest IV fluids IV antibiotics- Cipro and Flagyl Supportive care and pain control 2. Continue to closely monitor hemoglobin and hematocrit Increase protonix to 40 mg BID No urgent indication for surgical intervention at this time Surgery will continue to follow and assess progress Patient will need a interval colonoscopy in the next 6-8 weeks. Subjective Patient reports: still having pain, voiding w/o difficulty, flatus, bowel movement, blood in stool, nausea, afebrile Narrative: [place] states she does not feel any improvement today. She reports crampy low abdominal discomfort, bright red blood per bowel movement today, and denies appetite. Objective Vital Signs - Last 8 Hours Temp Pulse Resp BP Pulse Ox 01/15/17 11:41 99.5 F 99 16 102/66 92 01/15/17 10:17 97 01/15/17 07:28 98.5 F 97 16 106/74 97 Intake and Output 01/14/17 01/15/17 01/15/17 23:59 07:59 15:59 Intake Total 200 / 300 1518 / 1518 1450 / 1450 Output Total 200 / 200 600 / 600 600 / 600 Balance 0 / 100 918 / 918 850 / 850 Intake: IV Fluids 200 / 300 1400 / 1400 1450 / 1450 Sodium Bicarbonate 100 MEQ In 0 1100 / 1100 .45% Sodium Chloride 1000 Ml 1000 Ml 1,000 ML @ 125 mls/hr IVC .Q8H48M MAX Rx#:[id number] Cipro Premix 400 MG/200 ML 400 200 / 200 200 / 200 mg In 200 ml @ 200 mls/hr IVPB Q12HR MAX Rx#:[id number] Magnesium Sulfate Premix 2gm/ 100 / 100 50mL 2 gm In 50 ml @ 48.077 mls /hr IVPB Q2H MAX Rx#:[id number] Flagyl Premix 500 MG/100 ML 500 100 / 100 100 / 100 mg In 100 ml @ 100 mls/hr IVPB Q8HR MAX Rx#:[id number] Vancocin 1,250 MG In Dextrose 5 250 / 250 % 250 ML @ 166.67 mls/hr IVPB Q12H MAX Rx#:[id number] Oral 0 / 0 118 / 118 Output: Urine 0 / 0 600 / 600 600 / 600 Catheter 200 / 200 Other: Meal Dinner npo breakfast Percent of Meal Consumed 0% Stool Size Small Stool Consistency loose Stool Color Bright Red Blood # Bowel Movements 1 Weight 99.7 kg Blood Glucose* 154 161 156 Patient Weight 01/15/17 23:59 Weight 99.7 kg - General physical appearance no distress, moderate pain - Eyes normal ocular movement - ENT atraumatic, normocephalic - Neck Neck exam: trachea midline, no venous distension - Respiratory normal expansion, normal respiratory effort, clear to auscultation - Cardiovascular Cardiovascular exam: Present: RRR, distant heart sounds, no murmurs/rubs/gallops - Abdomen Abdomen: Present: bowel sounds present, soft, tender Abdominal Tenderness: RLQ, LLQ Hernia: none - Integumentary no growths - Neurologic normal coordination, normal sensation - Musculoskeletal normal posture - Psychiatric oriented to time, oriented to person, oriented to place, speech is normal, memory intact - Labs 01/15/17 12:45 01/15/17 04:01 Diabetes panel 01/15/17 Range/Units 04:01 Sodium 135 L (136-145) mEq/L Potassium 3.7 (3.5-4.5) mEq/L Chloride 98 (98-109) mEq/L Carbon Dioxide 26 (19-29) mEq/L BUN 8 (7-20) mg/dL Creatinine 0.83 (0.57-1.11) mg/dL Glucose 156 H (70-99) mg/dL Calcium 7.8 L (8.6-10.8) mg/dL Calcium panel 01/15/17 Range/Units 04:01 Calcium 7.8 L (8.6-10.8) mg/dL Phosphorus 2.9 (2.3-4.7) mg/dL Pituitary panel 01/15/17 Range/Units 04:01 Sodium 135 L (136-145) mEq/L Potassium 3.7 (3.5-4.5) mEq/L Chloride 98 (98-109) mEq/L Carbon Dioxide 26 (19-29) mEq/L BUN 8 (7-20) mg/dL Creatinine 0.83 (0.57-1.11) mg/dL Glucose 156 H (70-99) mg/dL Calcium 7.8 L (8.6-10.8) mg/dL Adrenal panel 01/15/17 Range/Units 04:01 Sodium 135 L (136-145) mEq/L Potassium 3.7 (3.5-4.5) mEq/L Chloride 98 (98-109) mEq/L Carbon Dioxide 26 (19-29) mEq/L BUN 8 (7-20) mg/dL Creatinine 0.83 (0.57-1.11) mg/dL Glucose 156 H (70-99) mg/dL Calcium 7.8 L (8.6-10.8) mg/dL Consult Discharge Plan - Plan Referrals: Jamel Ulloa DO [Partnered Physician] - 01/19/17 1:00 pm Nela Naylor DO [Primary Care Provider] - 01/22/17 10:00 am
--- NOTE | 2017-01-15 17:37 | Internal Med Progress Note ---
Date of Encounter: 01/15/17 Time of Encounter: 11:43 - Assessment and plan (1) Sepsis Current Visit: Yes Status: Resolved Assessment and plan: Secondary to Colitis Given clinical presentation, appears to be ischemic colitis continue empiric abx NPO IV fluids pain control lactic acidosis resolved Qualifiers: Sepsis type: sepsis due to unspecified organism Qualified Code(s): A41.9 - Sepsis, unspecified organism (2) Colitis Current Visit: Yes Status: Acute Assessment and plan: as listed above (3) UTI (urinary tract infection) Current Visit: Yes Status: Acute Assessment and plan: urine culture prelim positive for gram positive cocci added Vancomycin IV will de-escalate therapy once cultures finalize Qualifiers: Urinary tract infection type: site unspecified Hematuria presence: without hematuria Qualified Code(s): N39.0 - Urinary tract infection, site not specified (4) Abdominal pain Current Visit: Yes Status: Acute Assessment and plan: secondary to colitis plan as listed above Qualifiers: Abdominal location: generalized Qualified Code(s): R10.84 - Generalized abdominal pain (5) Melena Current Visit: Yes Status: Acute Assessment and plan: continue to closely monitor H&H q8h transfuse for Hgb<8 or if clinically symptomatic (6) SWEETIE (acute kidney injury) Current Visit: Yes Status: Resolved Assessment and plan: resolved renal function back to baseline continue to monitor renal function (7) DVT prophylaxis Current Visit: Yes Status: Acute Assessment and plan: SCD (8) Diabetes Current Visit: Yes Status: Chronic Assessment and plan: continue sliding scale insulin algorithm accuchecks q6h while NPO (9) Hypertension Current Visit: Yes Status: Chronic Assessment and plan: History of hypertension, however BP within acceptable range despite holding antihypertensive medications Will continue to closely monitor Qualifiers: Hypertension type: essential hypertension Qualified Code(s): I10 - Essential (primary) hypertension (10) Obesity (BMI 30-39.9) Current Visit: Yes Status: Chronic (11) Metabolic acidosis Current Visit: Yes Status: Resolved (12) Hypomagnesemia Current Visit: Yes Status: Acute Assessment and plan: Mg supplemented continue to monitor electrolytes and replace as needed - Subjective Interval history: Patient seen and examined with family present at bedside. Pt reports of pain being better controlled with the current pain medications. Still continues to have bloody bowel movements however states they have minimized in quantity since yesterday. Urine cultures positive for gram positive cocci - Constitutional Vitals: Temp Pulse Resp BP Pulse Ox 98.2 F 82 16 95/57 94 01/15/17 16:04 01/15/17 16:04 01/15/17 16:04 01/15/17 16:04 01/15/17 16:04 General appearance: Present: cooperative, A&O X 3, pleasant, no acute distress, obese, answers questions appropriately - Head Head exam: Present: atraumatic, normocephalic - Eye Eye exam: Present: conjuntiva pink, sclera anicteric - Respiratory Respiratory exam: Present: CTAB. Absent: respiratory distress, wheezes - Cardiovascular Cardiovascular exam: Present: RRR, +S1, +S2. Absent: diastolic murmur, gallop, rubs, systolic murmur - GI/Abdominal GI/Abdominal exam: Present: normal bowel sounds, soft, tenderness (RLQ tenderness to palpation ), no peritoneal signs - Extremities Exam Extremities exam: Present: warm, radial pulses palpable and symmetrical. Absent : calf tenderness, cyanotic, pedal edema - Neurological Exam Neurological exam: Present: alert, oriented X3 - Psychiatric Psychiatric exam: Present: normal affect, normal mood Internal Medicine: Result - Labs CBC & Chem 7: 01/15/17 12:45 01/15/17 04:01 Labs: Short CBC 01/14/17 01/15/17 01/15/17 Range/Units 23:19 04:01 12:45 WBC 11.3 H (4.3-11.1) K/mcL Hgb 10.4 L 9.7 L 9.4 L (11.5-15.4) g/dL Hct 29.6 L 27.7 L 27.5 L (35.3-44.9) % Plt Count 156 (140-400) K/mcL Neutrophils # 8.4 (1.6-8.9) K/mcL BMP 01/15/17 04:01 Sodium 135 L Potassium 3.7 Chloride 98 Carbon Dioxide 26 BUN 8 Creatinine 0.83 Glucose 156 H Calcium 7.8 L - ABG Interpretation ABG results: PT/INR, D-dimer PT 10.3 Seconds (9.4-12.1) 01/13/17 20:24 Consult Discharge Plan - Plan Referrals: Jamel Ulloa DO [Partnered Physician] - 01/19/17 1:00 pm Nela Naylor DO [Primary Care Provider] - 01/22/17 10:00 am
[2017-01-15 22:13] LABS: Hematocrit 28.4 % (35.3-44.9); Hemoglobin 9.7 g/dL (11.5-15.4)
[2017-01-16] MEDS: MetroNIDAZOLE 500 MG/100 ML 500 MG/100 ML BAG IVPB SCH ×3 (01:22→17:15)
[2017-01-16] MEDS: Insulin LISPRO 300 UNITS/3 ML VIAL SQ SCH ×5 (01:23→21:06)
[2017-01-16] MEDS: Acetaminophen 325 MG TABLET PO PRN (01:31)
[2017-01-16] MEDS: Ondansetron 4 MG/2 ML VIAL IVP PRN (02:37)
[2017-01-16] MEDS: *HR* HYDROmorphone (PF) 1 MG/ML SYRINGE IVP PRN (02:37)
[2017-01-16] MEDS: Pantoprazole 40 MG VIAL IVP SCH ×2 (05:24→17:14)
[2017-01-16] MEDS: 0.9 % Sodium Chloride 1,000 ML IVC SCH ×2 (05:24→21:52)
[2017-01-16 05:56] LABS: Basophils % 0.3 %; Eosinophils # 0.2 K/mcL (0.0-0.6); Eosinophils % 2.1 %; Hematocrit 27.7 % (35.3-44.9); Hemoglobin 9.1 g/dL (11.5-15.4); Immature Granulocytes % 0.7 % (0-4); Lymphocytes # 1.5 K/mcL (0.6-4.6); Lymphocytes % 17.7 %; Mean Corpuscular HGB Conc 32.9 g/dL (31.6-35.5); Mean Corpuscular Hemoglobin 30.2 pg (28.0-33.3); Mean Platelet Volume 10.8 fL (9.4-12.4); Monocytes # 0.5 K/mcL (0.0-1.3); Monocytes % 5.9 %; Neutrophils # 6.4 K/mcL (1.6-8.9); Nucleated Red Blood Cells 0.2 /100 WBC (0); Platelet Count 166 K/mcL (140-400); Red Blood Count 3.01 M/mcL (3.82-4.97); Red Cell Distribution Width 13.2 % (11.5-14.5); Segmented Neutrophils % 73.3 %
[2017-01-16 06:06] LABS: BUN/Creatinine Ratio 6 (6-26); Calcium 8.1 mg/dL (8.6-10.8); Carbon Dioxide 27 mEq/L (19-29); Chloride 100 mEq/L (98-109); Glucose 135 mg/dL (70-99); Magnesium 1.8 mg/dL (1.6-2.6); Osmolality,Calculated 281 (280-300); Phosphorous 3.6 mg/dL (2.3-4.7); Potassium 3.6 mEq/L (3.5-4.5); Sodium 136 mEq/L (136-145); eGFR For African Americans > 60 (> 60); eGFR For Non-African Americans > 60 (> 60)
[2017-01-16 06:07] LABS: Blood Urea Nitrogen 5 mg/dL (7-20)
--- NOTE | 2017-01-16 09:43 | General Surgery Progress Note ---
<Arpan Orellana - Last Filed: 01/16/17 14:15> Date of Encounter: 01/16/17 Time of Encounter: 09:41 - Assessment and Plan (1) Colitis Current Visit: Yes Status: Acute - No improvement with abdominal discomfort, nausea, blood in bowel movements. - Hgb mildly dropping from 9.7 to 9.1 today - Vital signs stable - Due to continued symptoms as well as 2 episodes of hematochezia, we will give a bowel prep and monitor to see if there is new blood versus retained blood from previous bleed - If she continues to have bleeding, we will contact the Endo team for possible colonoscopy tomorrow. Nothing by mouth at midnight - Continue supportive measures of fluids, IV Cipro and Flagyl, Protonix 40 mg twice a day (2) Abdominal pain Current Visit: Yes Status: Acute Likely secondary to colitis, plan as above Qualifiers: Abdominal location: generalized Qualified Code(s): R10.84 - Generalized abdominal pain (3) Obesity (BMI 30-39.9) Current Visit: Yes Status: Chronic Subjective Patient reports: still having pain, blood in stool, nausea, afebrile Narrative: Patient seen and examined at bedside this morning. She states she is still having continued pain, with minimal improvement from yesterday. She is also experiencing a minimal amount of nausea however she states that her Zofran does help this a lot. She admits to having 2 bowel movements yesterday however she states that they are mostly blood, bright red in nature. Overall, she states that she is feeling about the same as yesterday. Objective Vital Signs - Last 8 Hours Temp Pulse Resp BP Pulse Ox 01/16/17 09:00 97 01/16/17 06:46 97.8 F 84 14 94/66 97 01/16/17 04:00 98.5 F 83 18 99/64 96 Intake and Output 01/15/17 01/16/17 01/16/17 23:59 07:59 15:59 Intake Total 300 / 300 1100 / 1100 Output Total 1600 / 1600 700 / 700 Balance -1300 / -1300 400 / 400 Intake: IV Fluids 300 / 300 1100 / 1100 0.9 % Sodium Chloride 1,000 ML 1000 / 1000 @ 75 mls/hr IVC .[id number] [facility] Rx #:[id number] Cipro Premix 400 MG/200 ML 400 200 / 200 mg In 200 ml @ 200 mls/hr IVPB Q12HR MAX Rx#:[id number] Flagyl Premix 500 MG/100 ML 500 100 / 100 100 / 100 mg In 100 ml @ 100 mls/hr IVPB Q8HR MAX Rx#:[id number] Oral 0 / 0 0 / 0 Output: Urine 1600 / 1600 700 / 700 Other: Blood Glucose* 123 167 - General physical appearance well developed, well nourished, no distress, obese - Respiratory normal expansion, normal respiratory effort, clear to auscultation - Cardiovascular Cardiovascular exam: Present: RRR, no murmurs/rubs/gallops - Abdomen Abdomen: Present: bowel sounds present, soft, tender Abdominal Tenderness: LLQ, diffusely - Labs 01/16/17 05:32 01/16/17 05:32 Diabetes panel 01/16/17 Range/Units 05:32 Sodium 136 (136-145) mEq/L Potassium 3.6 (3.5-4.5) mEq/L Chloride 100 (98-109) mEq/L Carbon Dioxide 27 (19-29) mEq/L BUN 5 L (7-20) mg/dL Creatinine 0.81 (0.57-1.11) mg/dL Glucose 135 H (70-99) mg/dL Calcium 8.1 L (8.6-10.8) mg/dL Calcium panel 01/16/17 Range/Units 05:32 Calcium 8.1 L (8.6-10.8) mg/dL Phosphorus 3.6 (2.3-4.7) mg/dL Pituitary panel 01/16/17 Range/Units 05:32 Sodium 136 (136-145) mEq/L Potassium 3.6 (3.5-4.5) mEq/L Chloride 100 (98-109) mEq/L Carbon Dioxide 27 (19-29) mEq/L BUN 5 L (7-20) mg/dL Creatinine 0.81 (0.57-1.11) mg/dL Glucose 135 H (70-99) mg/dL Calcium 8.1 L (8.6-10.8) mg/dL Adrenal panel 01/16/17 Range/Units 05:32 Sodium 136 (136-145) mEq/L Potassium 3.6 (3.5-4.5) mEq/L Chloride 100 (98-109) mEq/L Carbon Dioxide 27 (19-29) mEq/L BUN 5 L (7-20) mg/dL Creatinine 0.81 (0.57-1.11) mg/dL Glucose 135 H (70-99) mg/dL Calcium 8.1 L (8.6-10.8) mg/dL - VTE Documentation of Mechanical Device: Intermittent pneumatic compression device Consult Discharge Plan - Plan Referrals: Jamel Ulloa DO [Partnered Physician] - 01/19/17 1:00 pm Nela Naylor DO [Primary Care Provider] - 01/22/17 10:00 am <Francisco Middleton - Last Filed: 01/17/17 07:59> Date of Encounter: 01/16/17 Objective Vital Signs - Last 8 Hours Temp Pulse Resp BP Pulse Ox 01/17/17 05:39 98.9 F 86 16 121/68 96 Intake and Output 01/16/17 01/16/17 01/17/17 15:59 23:59 07:59 Intake Total 1030 / 1030 1979 Output Total 300 / 300 Balance 730 / 730 1979 Intake: IV Fluids 350 / 350 1300 / 1300 0.9 % Sodium Chloride 1,000 ML 1000 / 1000 @ 75 mls/hr IVC .[id number] [facility] Rx #:[id number] Cipro Premix 400 MG/200 ML 400 200 / 200 mg In 200 ml @ 200 mls/hr IVPB Q12HR MAX Rx#:[id number] Flagyl Premix 500 MG/100 ML 500 100 / 100 100 / 100 mg In 100 ml @ 100 mls/hr IVPB Q8HR MAX Rx#:[id number] Vancocin 1,250 MG In Dextrose 5 250 / 250 % 250 ML @ 166.67 mls/hr IVPB Q12H MAX Rx#:[id number] Oral 680 / 680 680 / 680 Output: Urine 300 / 300 Other: Meal Lunch Dinner Percent of Meal Consumed 0% 0% Stool Size Small Smear Stool Consistency liquid liquid formed Stool Color Brown # Voids 1 # Bowel Movements 3 1 Blood Glucose* 125 152 - Labs 01/17/17 05:38 01/17/17 05:38 Diabetes panel 01/17/17 Range/Units 05:38 Sodium 139 (136-145) mEq/L Potassium 3.3 L (3.5-4.5) mEq/L Chloride 105 (98-109) mEq/L Carbon Dioxide 28 (19-29) mEq/L BUN 3 L (7-20) mg/dL Creatinine 0.79 (0.57-1.11) mg/dL Glucose 145 H (70-99) mg/dL Calcium 8.2 L (8.6-10.8) mg/dL Calcium panel 01/17/17 Range/Units 05:38 Calcium 8.2 L (8.6-10.8) mg/dL Phosphorus 3.0 (2.3-4.7) mg/dL Pituitary panel 01/17/17 Range/Units 05:38 Sodium 139 (136-145) mEq/L Potassium 3.3 L (3.5-4.5) mEq/L Chloride 105 (98-109) mEq/L Carbon Dioxide 28 (19-29) mEq/L BUN 3 L (7-20) mg/dL Creatinine 0.79 (0.57-1.11) mg/dL Glucose 145 H (70-99) mg/dL Calcium 8.2 L (8.6-10.8) mg/dL Adrenal panel 01/17/17 Range/Units 05:38 Sodium 139 (136-145) mEq/L Potassium 3.3 L (3.5-4.5) mEq/L Chloride 105 (98-109) mEq/L Carbon Dioxide 28 (19-29) mEq/L BUN 3 L (7-20) mg/dL Creatinine 0.79 (0.57-1.11) mg/dL Glucose 145 H (70-99) mg/dL Calcium 8.2 L (8.6-10.8) mg/dL - Attending Attestation I examined this patient and my medical decision-making was reviewed with the Resident Physician. I agree with the documented findings, disposition and treatment plan as described except to the extent set forth below. I reviewed the above assessment and evaluation and agree with the above plan. Patient still notes blood per rectum. Tender to palpation left lower quadrant. Hemoglobin with a slight decrease compared to yesterday. Will continue to follow and will add MiraLAX/Gatorade to see if there is any evidence of rectal bleeding and consider colonoscopy within the next 24 hours.
--- NOTE | 2017-01-16 10:21 | Internal Med Progress Note ---
Date of Encounter: 01/16/17 Time of Encounter: 10:19 - Assessment and plan (1) Sepsis Current Visit: Yes Status: Resolved Assessment and plan: Secondary to Colitis Given clinical presentation, appears to be ischemic colitis continue empiric abx clinically improving will start clear liquid diet IV fluids pain control, pt appears to be only using dilaudid, she is educated about the adverse effects associated with narcotic use lactic acidosis resolved pt encouraged to get out of bed to chair Qualifiers: Sepsis type: sepsis due to unspecified organism Qualified Code(s): A41.9 - Sepsis, unspecified organism (2) Colitis Current Visit: Yes Status: Acute Assessment and plan: as listed above (3) UTI (urinary tract infection) Current Visit: Yes Status: Acute Assessment and plan: urine culture strep mutans awaiting culture sensitivities continue Vancomycin IV will de-escalate therapy once sensitivities available Qualifiers: Urinary tract infection type: site unspecified Hematuria presence: without hematuria Qualified Code(s): N39.0 - Urinary tract infection, site not specified (4) Abdominal pain Current Visit: Yes Status: Acute Assessment and plan: secondary to colitis plan as listed above Qualifiers: Abdominal location: generalized Qualified Code(s): R10.84 - Generalized abdominal pain (5) Melena Current Visit: Yes Status: Acute Assessment and plan: continue to closely monitor H&H q12h transfuse for Hgb<8 or if clinically symptomatic (6) SWEETIE (acute kidney injury) Current Visit: Yes Status: Resolved Assessment and plan: resolved renal function back to baseline continue to monitor renal function (7) DVT prophylaxis Current Visit: Yes Status: Acute Assessment and plan: SCD (8) Diabetes Current Visit: Yes Status: Chronic Assessment and plan: continue sliding scale insulin algorithm accuchecks ACHS clear liquid diet (9) Hypertension Current Visit: Yes Status: Chronic Assessment and plan: History of hypertension, however BP within acceptable range despite holding antihypertensive medications Will continue to closely monitor hold narcotics if SBP<100 Qualifiers: Hypertension type: essential hypertension Qualified Code(s): I10 - Essential (primary) hypertension (10) Obesity (BMI 30-39.9) Current Visit: Yes Status: Chronic (11) Metabolic acidosis Current Visit: Yes Status: Resolved (12) Hypomagnesemia Current Visit: Yes Status: Resolved - Subjective Interval history: Patient seen and examined with family present at bedside. Pt resting in bed and sleeping comfortably as I entered patient's room. She started to complain of abd pain as she woke up. Does not appear to be in distress. Reports of persistent abd pain that is controlled with pain medications. Nauseas persists but significantly improved. Reports of being hungry and wants to eat. No overnight events reported - Constitutional Vitals: Temp Pulse Resp BP Pulse Ox 97.8 F 84 14 94/66 97 01/16/17 06:46 01/16/17 06:46 01/16/17 06:46 01/16/17 06:46 01/16/17 09:00 General appearance: Present: cooperative, A&O X 3, pleasant, no acute distress, obese, answers questions appropriately - Head Head exam: Present: atraumatic, normocephalic - Eye Eye exam: Present: conjuntiva pink, sclera anicteric - Respiratory Respiratory exam: Present: CTAB. Absent: accessory muscle use, rales, rhonchi, wheezes - Cardiovascular Cardiovascular exam: Present: RRR, +S1, +S2. Absent: diastolic murmur, gallop, rubs, systolic murmur - GI/Abdominal GI/Abdominal exam: Present: normal bowel sounds, soft, tenderness (RLQ LLQ tenderness to palpation ), no peritoneal signs. Absent: distended, firm, guarding - Extremities Exam Extremities exam: Present: warm, radial pulses palpable and symmetrical. Absent : calf tenderness, cyanotic, pedal edema - Neurological Exam Neurological exam: Present: alert, oriented X3 - Psychiatric Psychiatric exam: Present: normal affect, normal mood Internal Medicine: Result - Labs CBC & Chem 7: 01/16/17 05:32 01/16/17 05:32 Labs: Short CBC 01/15/17 01/15/17 01/16/17 Range/Units 12:45 21:48 05:32 WBC 8.7 (4.3-11.1) K/mcL Hgb 9.4 L 9.7 L 9.1 L (11.5-15.4) g/dL Hct 27.5 L 28.4 L 27.7 L (35.3-44.9) % Plt Count 166 (140-400) K/mcL Neutrophils # 6.4 (1.6-8.9) K/mcL BMP 01/16/17 05:32 Sodium 136 Potassium 3.6 Chloride 100 Carbon Dioxide 27 BUN 5 L Creatinine 0.81 Glucose 135 H Calcium 8.1 L - ABG Interpretation ABG results: PT/INR, D-dimer PT 10.3 Seconds (9.4-12.1) 01/13/17 20:24 - VTE Documentation of Mechanical Device: Intermittent pneumatic compression device Consult Discharge Plan - Plan Referrals: Jamel Ulloa DO [Partnered Physician] - 01/19/17 1:00 pm Nela Naylor DO [Primary Care Provider] - 01/22/17 10:00 am
[2017-01-16] MEDS ORDERED: *HR* HYDROmorphone (PF) 1 MG/ML SYRINGE IVP PRN (10:22)
[2017-01-16] MEDS ORDERED: *HR* Dextrose 50 % in Water (Syg) 50 ML SYRINGE IVP PRN (10:25)
[2017-01-16] MEDS ORDERED: Dextrose Gel 15 GM PO PRN ×2 (10:25)
[2017-01-16] MEDS ORDERED: D5% in Water 1,000 ML IVC PRN (10:25)
[2017-01-16] MEDS ORDERED: *HR* Morphine 2 MG/ML SYRINGE IVP PRN (10:27)
[2017-01-16] MEDS: Vancomycin 1,250 MG in D5% in Water 250 ML IVPB SCH (11:30)
[2017-01-16] MEDS ORDERED: Insulin LISPRO 300 UNITS/3 ML VIAL SQ SCH (12:00)
[2017-01-16] MEDS ORDERED: Polyethylene Glycol 3350 255 GM POWDER PO ONE (12:22)
[2017-01-16 16:35] LABS: Hematocrit 28.3 % (35.3-44.9); Hemoglobin 9.6 g/dL (11.5-15.4)
[2017-01-16] MEDS: *HR* Promethazine 25 MG/ML VIAL IV PRN (18:19)
[2017-01-17] MEDS: *HR* HYDROmorphone (PF) 1 MG/ML SYRINGE IVP PRN ×4 (00:02→17:53)
[2017-01-17] MEDS: Vancomycin 1,250 MG in D5% in Water 250 ML IVPB SCH (00:03)
[2017-01-17] MEDS: MetroNIDAZOLE 500 MG/100 ML 500 MG/100 ML BAG IVPB SCH ×3 (00:47→16:40)
[2017-01-17] MEDS: Pantoprazole 40 MG VIAL IVP SCH ×2 (05:13→16:40)
[2017-01-17 06:37] LABS: BUN/Creatinine Ratio 4 (6-26); Blood Urea Nitrogen 3 mg/dL (7-20); Calcium 8.2 mg/dL (8.6-10.8); Carbon Dioxide 28 mEq/L (19-29); Chloride 105 mEq/L (98-109); Glucose 145 mg/dL (70-99); Magnesium 1.3 mg/dL (1.6-2.6); Osmolality,Calculated 287 (280-300); Potassium 3.3 mEq/L (3.5-4.5); Sodium 139 mEq/L (136-145); eGFR For African Americans > 60 (> 60); eGFR For Non-African Americans > 60 (> 60)
[2017-01-17 06:59] LABS: Basophils % 0.5 %; Eosinophils # 0.3 K/mcL (0.0-0.6); Eosinophils % 3.2 %; Hematocrit 29.3 % (35.3-44.9); Hemoglobin 9.8 g/dL (11.5-15.4); Immature Granulocytes % 0.9 % (0-4); Lymphocytes # 1.8 K/mcL (0.6-4.6); Lymphocytes % 23.2 %; Mean Corpuscular HGB Conc 33.4 g/dL (31.6-35.5); Mean Corpuscular Hemoglobin 30.8 pg (28.0-33.3); Mean Corpuscular Volume 92.1 fL (83.0-100.0); Mean Platelet Volume 10.4 fL (9.4-12.4); Monocytes # 0.7 K/mcL (0.0-1.3); Monocytes % 8.7 %; Neutrophils # 4.9 K/mcL (1.6-8.9); Nucleated Red Blood Cells 0.4 /100 WBC (0); Platelet Count 214 K/mcL (140-400); Red Blood Count 3.18 M/mcL (3.82-4.97); Red Cell Distribution Width 13.2 % (11.5-14.5); Segmented Neutrophils % 63.5 %
[2017-01-17] MEDS ORDERED: Aminoglycoside Consult 1 EACH MC ONE (07:59)
[2017-01-17] MEDS: Insulin LISPRO 300 UNITS/3 ML VIAL SQ SCH ×4 (08:20→20:54)
[2017-01-17] MEDS: *HR* Promethazine 25 MG/ML VIAL IV PRN ×2 (09:22→17:57)
[2017-01-17] MEDS ORDERED: Propofol 500 MG/50 ML INFUS..BTL ONE (09:45)
--- NOTE | 2017-01-17 09:46 | Anesthesia Evaluation PreOp ---
Date of Encounter: 01/17/17 Time of Encounter: 09:45 - Past History Planned Operation: Colonoscopy Cardiac History: HTN, Hyperlipidemia Pulmonary History: JUAN A Dx [employer] History: Denies Any Significant HX Other Medical History: Diabetes Type II, Other (Morbid Obesity) Anesthesia History: No Prior Anesthetic Complications : No Alcohol Use: none Drug use: none Medications and Allergies Acetaminophen w/Cod 300-30 mg [Tylenol w/Codeine #3] 1 tab PO Q12H PRN 06/04/16 [History] Albuterol Sulfate [Proair Hfa] 1 - 2 puff IH Q4-6H PRN 06/04/16 [History] Amlodipine Besylate 10 mg PO DAILY 06/04/16 [History] Aspirin [Ecotrin] 325 mg PO DAILY 06/04/16 [History] Atorvastatin Calcium [Lipitor] 20 mg PO HS 06/04/16 [History] Cholecalciferol (D-3) [Vitamin D] 2,000 unit PO DAILY 06/04/16 [History] Cyclobenzaprine HCl 2.5 - 5 mg PO TID PRN 06/04/16 [History] FLUoxetine HCl [Fluoxetine HCl] 40 mg PO DAILY 06/04/16 [History] Ferrous Sulfate [Iron] 325 mg PO BID 06/04/16 [History] Gabapentin [Neurontin] 300 mg PO TID 06/04/16 [History] Glimepiride [Amaryl] 1 mg PO BID 06/04/16 [History] Lisinopril/Hydrochlorothiazide [Zestoretic 20-12.5 mg Tablet] 1 tab PO BID 06/04 [History] Loratadine [Allergy Relief] 10 mg PO DAILY 06/04/16 [History] Magnesium Oxide [Magnesium] 400 mg PO BID 06/04/16 [History] Pantoprazole Sodium [Protonix] 40 mg PO DAILY 06/04/16 [History] Ranitidine HCl [Zantac] 150 mg PO BID 06/04/16 [History] Spironolactone [Aldactone] 50 mg PO DAILY 06/04/16 [History] Amitriptyline [Elavil] 25 mg PO HS 01/13/17 [History] 3 Allergy/AdvReac Type Severity Reaction Status Date / Time clonidine Allergy Blister Verified 01/13/17 20:12 - Meds/Allergy Pre-op Review Medications Reviewed: Yes Allergies Reviewed: Yes Anesthesia Results - Labs 01/17/17 05:38 01/17/17 05:38 - Imaging EKG: report reviewed (Sinus Tach) Additional studies: EF 60% from 2015 ECHO Anesthesia Exam Vital Signs/O2 Sat/Glucose, Most Current Temp Pulse Resp BP Pulse Ox 01/17/17 08:35 98.0 F 86 16 115/76 96 Height: 5'6 Weight: 219 lbs NPO (# of Hours): MN Pain Scale: 0 - HEENT Pupil (Motor): Pupils equal, EOMI Mallampati: III Oral Opening: Less than or equal to 3 - [employer] LOC: Oriented [employer] Motor: Normal RUE, Normal LUE, Normal RLE, Normal LLE, Normal Face [employer] Sensory: Normal: RUE, LUE, RLE, LLE, Face - Cardiac Rhythm: Regular Murmur: None JVD: No Carotid Bruit: No - Pulmonary Breath Sounds: bilateral Clear Respiratory Effort: Symmetrical Anesthesia Assess/Plan ASA Score: 3 (HTN DM) Modified [place] Scale for Level of Consciousness: Cooperative, oriented, and tranquil Anesthetic Plan: MAC Monitoring Plan: Standard Monitors Recovery Plan: Other (Discussed MAC, agrees to proceed)
--- NOTE | 2017-01-17 10:12 | General Surgery Progress Note ---
Date of Encounter: 01/17/17 Time of Encounter: 08:10 - Assessment and Plan (1) Colitis Current Visit: Yes Status: Acute - No improvement with abdominal discomfort, nausea, blood in bowel movements. - Hgb mildly dropping from 9.7 to 9.1 today - Vital signs stable - Due to continued symptoms as well as 2 episodes of hematochezia, we will give a bowel prep and monitor to see if there is new blood versus retained blood from previous bleed - If she continues to have bleeding, we will contact the Endo team for possible colonoscopy tomorrow. Nothing by mouth at midnight - Continue supportive measures of fluids, IV Cipro and Flagyl, Protonix 40 mg twice a day (2) Abdominal pain Current Visit: Yes Status: Acute Likely secondary to colitis, plan as above Qualifiers: Abdominal location: generalized Qualified Code(s): R10.84 - Generalized abdominal pain (3) Obesity (BMI 30-39.9) Current Visit: Yes Status: Chronic Subjective Patient reports: no new complaints, still having pain, tolerating liquids well, bowel movement Narrative: Patient seen and examined at bedside this morning. She states that she is still experiencing the same amount of abdominal pain with mild nausea. After drinking the bowel prep yesterday, patient had multiple bowel movements which started off with blood however near the end were a thin yellow color. She otherwise states that she is the same as yesterday. Objective Vital Signs - Last 8 Hours Temp Pulse Resp BP Pulse Ox 01/17/17 09:15 96 01/17/17 08:35 98.0 F 86 16 115/76 96 01/17/17 05:39 98.9 F 86 16 121/68 96 Intake and Output 01/16/17 01/17/17 01/17/17 23:59 07:59 15:59 Intake Total 1979 100 / 100 Balance 1979 100 / 100 Intake: IV Fluids 1300 / 1300 100 / 100 0.9 % Sodium Chloride 1,000 ML 1000 / 1000 @ 75 mls/hr IVC .[id number] [facility] Rx #:[id number] Cipro Premix 400 MG/200 ML 400 200 / 200 mg In 200 ml @ 200 mls/hr IVPB Q12HR MAX Rx#:[id number] Flagyl Premix 500 MG/100 ML 500 100 / 100 100 / 100 mg In 100 ml @ 100 mls/hr IVPB Q8HR [facility] Rx#:[id number] Oral 680 / 680 Other: Meal Dinner Percent of Meal Consumed 0% Stool Size Small Smear Stool Consistency liquid liquid formed Stool Color Brown # Voids 1 # Bowel Movements 3 1 Blood Glucose* 152 134 - General physical appearance well developed, well nourished, no distress - Respiratory normal expansion, normal respiratory effort, clear to auscultation - Cardiovascular Cardiovascular exam: Present: RRR, no murmurs/rubs/gallops - Abdomen Abdomen: Present: bowel sounds present, soft, tender Abdominal Tenderness: LLQ - Labs 01/17/17 05:38 01/17/17 05:38 Diabetes panel 01/17/17 Range/Units 05:38 Sodium 139 (136-145) mEq/L Potassium 3.3 L (3.5-4.5) mEq/L Chloride 105 (98-109) mEq/L Carbon Dioxide 28 (19-29) mEq/L BUN 3 L (7-20) mg/dL Creatinine 0.79 (0.57-1.11) mg/dL Glucose 145 H (70-99) mg/dL Calcium 8.2 L (8.6-10.8) mg/dL Calcium panel 01/17/17 Range/Units 05:38 Calcium 8.2 L (8.6-10.8) mg/dL Phosphorus 3.0 (2.3-4.7) mg/dL Pituitary panel 01/17/17 Range/Units 05:38 Sodium 139 (136-145) mEq/L Potassium 3.3 L (3.5-4.5) mEq/L Chloride 105 (98-109) mEq/L Carbon Dioxide 28 (19-29) mEq/L BUN 3 L (7-20) mg/dL Creatinine 0.79 (0.57-1.11) mg/dL Glucose 145 H (70-99) mg/dL Calcium 8.2 L (8.6-10.8) mg/dL Adrenal panel 01/17/17 Range/Units 05:38 Sodium 139 (136-145) mEq/L Potassium 3.3 L (3.5-4.5) mEq/L Chloride 105 (98-109) mEq/L Carbon Dioxide 28 (19-29) mEq/L BUN 3 L (7-20) mg/dL Creatinine 0.79 (0.57-1.11) mg/dL Glucose 145 H (70-99) mg/dL Calcium 8.2 L (8.6-10.8) mg/dL - VTE Documentation of Mechanical Device: Intermittent pneumatic compression device Consult Discharge Plan - Plan Referrals: Jamel Ulloa DO [Partnered Physician] - 01/19/17 1:00 pm Nela Naylor DO [Primary Care Provider] - 01/22/17 10:00 am
--- NOTE | 2017-01-17 10:30 | Event Note ---
Date of Encounter: 01/17/17 Time of Encounter: 10:29 Colonoscopy-erythema of the sigmoid and descending colon consistent with colitis. Biopsies obtained. No active bleeding. OK to advance diet to full liquids and further advance as tolerated. Await pathology results.
[2017-01-17] MEDS: Ondansetron 4 MG/2 ML VIAL IVP PRN ×2 (11:08→20:49)
--- NOTE | 2017-01-17 11:27 | Anesthesia Evaluation Post Op ---
Date of Encounter: 01/17/17 Time of Encounter: 10:55 - Vital Signs Vital Signs: 119/78, HR 72, 96%, RR18 - Lungs Lungs: Clear Ascult./Percussion - Airway Airway: Non-obstructed - Cardiovascular Regular Rate - Mental Status Mental Status: Alert & Oriented, Answers Appropriately - Pain Pain Scale: 0 Pain Scale used: Numeric (1 - 10) - Nausea Vomiting Nausea Vomiting: Not Present - Hydration Hydration: NPO, Has not voided - Discharge PostOp Status: Transfer Patient to floor
--- NOTE | 2017-01-17 14:28 | Internal Med Progress Note ---
Date of Encounter: 01/17/17 Time of Encounter: 11:35 - Assessment and plan (1) Sepsis Current Visit: Yes Status: Resolved Assessment and plan: Secondary to Colitis Given clinical presentation, appears to be ischemic colitis continue empiric abx clinically improving full liquid diet and advance as tolerated s/p colonoscopy(01/17/17): erythema of sigmoid and descending colon consistent with colitis, no active bleeding reported d/c IV fluids pain control lactic acidosis resolved pt encouraged to get out of bed to chair Qualifiers: Sepsis type: sepsis due to unspecified organism Qualified Code(s): A41.9 - Sepsis, unspecified organism (2) Colitis Current Visit: Yes Status: Acute Assessment and plan: as listed above (3) UTI (urinary tract infection) Current Visit: Yes Status: Acute Assessment and plan: urine culture strep mutans d/c vanco continue cipro Qualifiers: Urinary tract infection type: site unspecified Hematuria presence: without hematuria Qualified Code(s): N39.0 - Urinary tract infection, site not specified (4) Abdominal pain Current Visit: Yes Status: Acute Assessment and plan: secondary to colitis plan as listed above Qualifiers: Abdominal location: generalized Qualified Code(s): R10.84 - Generalized abdominal pain (5) Melena Current Visit: Yes Status: Acute Assessment and plan: resolved continue to closely monitor H&H transfuse for Hgb<8 or if clinically symptomatic (6) SWEETIE (acute kidney injury) Current Visit: Yes Status: Resolved Assessment and plan: resolved renal function back to baseline continue to monitor renal function (7) DVT prophylaxis Current Visit: Yes Status: Acute Assessment and plan: SCD (8) Diabetes Current Visit: Yes Status: Chronic Assessment and plan: continue sliding scale insulin algorithm accuchecks ACHS advance to ADA diet as tolerated (9) Hypertension Current Visit: Yes Status: Chronic Assessment and plan: History of hypertension, however BP within acceptable range despite holding antihypertensive medications Will continue to closely monitor hold narcotics if SBP<100 Qualifiers: Hypertension type: essential hypertension Qualified Code(s): I10 - Essential (primary) hypertension (10) Obesity (BMI 30-39.9) Current Visit: Yes Status: Chronic (11) Metabolic acidosis Current Visit: Yes Status: Resolved (12) Hypomagnesemia Current Visit: Yes Status: Resolved Assessment and plan: Mg supplemented continue to monitor electrolytes and replace as needed Hypokalemia K supplemented - Subjective Interval history: Patient seen and examined with family present at bedside. s/p colonoscopy which reported erythema of the sigmoid and descending colon consistent with colitis, no active bleeding reported Pt advanced to full liquid diet will advance further as tolerated if remains clinically asymptomatic, likely d/c in am pt reports of improvement in pain from previous day - Constitutional Vitals: Temp Pulse Resp BP Pulse Ox 98.2 F 87 16 118/76 99 01/17/17 12:15 01/17/17 12:15 01/17/17 12:15 01/17/17 12:15 01/17/17 12:15 General appearance: Present: cooperative, A&O X 3, pleasant, no acute distress, obese, answers questions appropriately - Head Head exam: Present: atraumatic, normocephalic - Eye Eye exam: Present: conjuntiva pink, sclera anicteric - Respiratory Respiratory exam: Present: CTAB. Absent: accessory muscle use, rales, rhonchi, wheezes - Cardiovascular Cardiovascular exam: Present: RRR, +S1, +S2. Absent: diastolic murmur, gallop, rubs, systolic murmur - GI/Abdominal GI/Abdominal exam: Present: normal bowel sounds, soft, no peritoneal signs. Absent: distended - Extremities Exam Extremities exam: Present: warm, radial pulses palpable and symmetrical. Absent : calf tenderness, cyanotic, pedal edema - Neurological Exam Neurological exam: Present: alert, oriented X3 - Psychiatric Psychiatric exam: Present: normal affect, normal mood Internal Medicine: Result - Labs CBC & Chem 7: 01/17/17 05:38 01/17/17 05:38 Labs: Short CBC 01/16/17 01/17/17 Range/Units 16:25 05:38 WBC 7.8 (4.3-11.1) K/mcL Hgb 9.6 L 9.8 L (11.5-15.4) g/dL Hct 28.3 L 29.3 L (35.3-44.9) % Plt Count 214 (140-400) K/mcL Neutrophils # 4.9 (1.6-8.9) K/mcL BMP 01/17/17 05:38 Sodium 139 Potassium 3.3 L Chloride 105 Carbon Dioxide 28 BUN 3 L Creatinine 0.79 Glucose 145 H Calcium 8.2 L - ABG Interpretation ABG results: PT/INR, D-dimer PT 10.3 Seconds (9.4-12.1) 01/13/17 20:24 - VTE Documentation of Mechanical Device: Intermittent pneumatic compression device Consult Discharge Plan - Plan Referrals: Jamel Ulloa DO [Partnered Physician] - 01/19/17 1:00 pm Nela Naylor DO [Primary Care Provider] - 01/22/17 10:00 am
[2017-01-18] MEDS: MetroNIDAZOLE 500 MG/100 ML 500 MG/100 ML BAG IVPB SCH ×2 (00:50→08:06)
[2017-01-18] MEDS: *HR* HYDROmorphone (PF) 1 MG/ML SYRINGE IVP PRN ×4 (00:59→13:59)
[2017-01-18] MEDS: *HR* Promethazine 25 MG/ML VIAL IV PRN ×2 (01:38→13:59)
[2017-01-18 03:46] LABS: Basophils # 0.1 K/mcL (0.0-0.2); Basophils % 0.9 %; Eosinophils # 0.3 K/mcL (0.0-0.6); Eosinophils % 4.1 %; Hemoglobin 9.7 g/dL (11.5-15.4); Immature Granulocytes % 0.9 % (0-4); Lymphocytes # 1.8 K/mcL (0.6-4.6); Lymphocytes % 25.1 %; Mean Corpuscular HGB Conc 33.4 g/dL (31.6-35.5); Mean Corpuscular Hemoglobin 30.8 pg (28.0-33.3); Mean Corpuscular Volume 92.1 fL (83.0-100.0); Mean Platelet Volume 9.7 fL (9.4-12.4); Monocytes # 0.7 K/mcL (0.0-1.3); Monocytes % 9.3 %; Neutrophils # 4.2 K/mcL (1.6-8.9); Platelet Count 222 K/mcL (140-400); Red Blood Count 3.15 M/mcL (3.82-4.97); Red Cell Distribution Width 13.4 % (11.5-14.5); Segmented Neutrophils % 59.7 %
[2017-01-18 04:05] LABS: BUN/Creatinine Ratio 4 (6-26); Blood Urea Nitrogen 3 mg/dL (7-20); Calcium 8.2 mg/dL (8.6-10.8); Carbon Dioxide 26 mEq/L (19-29); Chloride 104 mEq/L (98-109); Glucose 132 mg/dL (70-99); Osmolality,Calculated 282 (280-300); Potassium 3.8 mEq/L (3.5-4.5); Sodium 137 mEq/L (136-145); eGFR For African Americans > 60 (> 60); eGFR For Non-African Americans > 60 (> 60)
[2017-01-18 04:09] LABS: Magnesium 1.3 mg/dL (1.6-2.6); Phosphorous 3.3 mg/dL (2.3-4.7)
[2017-01-18] MEDS: Ondansetron 4 MG/2 ML VIAL IVP PRN ×3 (04:22→22:01)
[2017-01-18] MEDS: Pantoprazole 40 MG VIAL IVP SCH (05:09)
[2017-01-18] MEDS: Insulin LISPRO 300 UNITS/3 ML VIAL SQ SCH ×4 (08:07→21:49)
--- NOTE | 2017-01-18 09:08 | Event Note ---
Date of Encounter: 01/18/17 Time of Encounter: 09:06 Noted colonoscopy findings of 01/17/2017: Colonoscopy-erythema of the sigmoid and descending colon consistent with colitis. Biopsies obtained. No active bleeding. OK to advance diet to full liquids and further advance as tolerated. Await pathology results. Hgb stable, tolerating diet, no further bloody BMs. Surgery will sign off at this time. Please reconsult if questions or needs arise. No surgical follow-up indicated at this time pending path results.
--- NOTE | 2017-01-18 11:32 | Internal Med Progress Note ---
Date of Encounter: 01/18/17 Time of Encounter: 11:32 - Assessment and plan (1) Abdominal pain Current Visit: Yes Status: Acute Qualifiers: Abdominal location: generalized Qualified Code(s): R10.84 - Generalized abdominal pain (2) Colitis Current Visit: Yes Status: Acute (3) DVT prophylaxis Current Visit: Yes Status: Acute (4) Melena Current Visit: Yes Status: Acute (5) Septic shock Current Visit: Yes Status: Acute (6) UTI (urinary tract infection) Current Visit: Yes Status: Acute Qualifiers: Urinary tract infection type: site unspecified Hematuria presence: without hematuria Qualified Code(s): N39.0 - Urinary tract infection, site not specified (7) Diabetes Current Visit: Yes Status: Chronic Qualifiers: Diabetes mellitus type: type 2 Diabetes mellitus complication status: with unspecified complications Diabetes mellitus senior care insulin use: unspecified oil heaterman insulin use status Qualified Code(s): E11.8 - Type 2 diabetes mellitus with unspecified complications (8) Hypertension Current Visit: Yes Status: Chronic Qualifiers: Hypertension type: essential hypertension Qualified Code(s): I10 - Essential (primary) hypertension - Constitutional Vitals: Temp Pulse Resp BP Pulse Ox 97.8 F 79 14 103/67 93 01/18/17 10:52 01/18/17 10:52 01/18/17 10:52 01/18/17 10:52 01/18/17 10:52 General appearance: Present: cooperative, A&O X 3, pleasant, no acute distress, obese, answers questions appropriately Internal Medicine: Result - Labs CBC & Chem 7: 01/18/17 03:37 01/18/17 03:37 Labs: Short CBC 01/18/17 Range/Units 03:37 WBC 7.0 (4.3-11.1) K/mcL Hgb 9.7 L (11.5-15.4) g/dL Hct 29.0 L (35.3-44.9) % Plt Count 222 (140-400) K/mcL Neutrophils # 4.2 (1.6-8.9) K/mcL BMP 01/18/17 03:37 Sodium 137 Potassium 3.8 Chloride 104 Carbon Dioxide 26 BUN 3 L Creatinine 0.76 Glucose 132 H Calcium 8.2 L - ABG Interpretation ABG results: PT/INR, D-dimer PT 10.3 Seconds (9.4-12.1) 01/13/17 20:24 - VTE Documentation of Mechanical Device: Intermittent pneumatic compression device Consult Discharge Plan - Plan Referrals: Jamel Ulloa DO [Partnered Physician] - 01/19/17 1:00 pm Nela Naylor DO [Primary Care Provider] - 01/22/17 10:00 am
[2017-01-18] MEDS: Magnesium Oxide 400 MG TABLET PO SCH ×2 (13:53→21:48)
[2017-01-18] MEDS: Acetaminophen 325 MG TABLET PO PRN (14:28)
[2017-01-18] MEDS ORDERED: Acetaminophen 325 MG TABLET PO PRN (14:44)
[2017-01-18] MEDS ORDERED: *HR* Morphine 2 MG/ML SYRINGE IVP PRN (14:44)
[2017-01-18] MEDS: Loratadine 10 MG TABLET PO SCH (15:56)
[2017-01-18] MEDS: Gabapentin 300 MG CAPSULE PO SCH ×2 (15:56→21:49)
[2017-01-18] MEDS: metroNIDAZOLE 500 MG TABLET PO SCH (15:56)
[2017-01-18] MEDS: FLUoxetine 20 MG CAPSULE PO SCH (15:56)
--- NOTE | 2017-01-18 18:35 | Event Note ---
Date of Encounter: 01/18/17 Time of Encounter: 11:30 I examined this patient and my medical decision-making was reviewed with the Resident Physician on 01/18/17. I agree with the documented findings, disposition and treatment plan as described except to the extent set forth below. Ms Mireles is currently admitted for sepsis related to colitis. She remains moderate to high risk due to potential for worsening clinical status. Ms Mireles is still having abd pain. No fever or chills. Has had 6 days of abx. No surgical procedures planned. Exam Alert. Mild distress due to pain. Mucus membranes dry Heart reg No wheeze Abd soft - tenderness present I/P 1. Sepsis - improving 2. Probable ischemic colitis 3. Cystitis without hematuria due to strep mutans 4. Abd pain - diffuse. Continue pain control 5. Melena Further diagnoses and plan as per progress note of today. Anticipate d/c tomorrow.
--- NOTE | 2017-01-18 21:19 | Internal Med Progress Note ---
<Amber Robins - Last Filed: 01/18/17 21:17> Date of Encounter: 01/18/17 Time of Encounter: 13:00 - Assessment and plan (1) Colitis Current Visit: Yes Status: Acute Assessment and plan: - Colonoscopy yesterday showing erythema of sigmoid and descending colon consistent with colitis. No evidence of bleed. - Day 6 of 7 of antibiotics, cipro and flagyl. Will transition to PO tomorrow. - WBC wnl. No longer septic. - Pain control, supportive care. - Full liquid diet. - Pathology from colonoscopy pending. (2) Abdominal pain Current Visit: Yes Status: Acute Assessment and plan: Likely secondary to colitis as above. Qualifiers: Abdominal location: generalized Qualified Code(s): R10.84 - Generalized abdominal pain (3) Obesity (BMI 30-39.9) Current Visit: Yes Status: Chronic Assessment and plan: Encourage weight loss as outpatient (4) GI bleed Current Visit: Yes Status: Resolved Assessment and plan: - Resolved. - Likely secondary to colitis, possibly ischemic in etiology - H/H stable. No longer having hematochezia. - Will monitor with CBC Qualifiers: GI bleed type/associated pathology: unspecified gastrointestinal hemorrhage type Qualified Code(s): K92.2 - Gastrointestinal hemorrhage, unspecified (5) Diabetes Current Visit: Yes Status: Chronic Assessment and plan: continue sliding scale insulin Qualifiers: Diabetes mellitus type: type 2 Diabetes mellitus complication status: with unspecified complications Diabetes mellitus manager terminal insulin use: unspecified manager terminal insulin use status Qualified Code(s): E11.8 - Type 2 diabetes mellitus with unspecified complications (6) Hypertension Current Visit: Yes Status: Chronic Assessment and plan: Well controlled at this time. Qualifiers: Hypertension type: essential hypertension Qualified Code(s): I10 - Essential (primary) hypertension (7) DVT prophylaxis Current Visit: Yes Status: Acute Assessment and plan: SCDs - Time Spent With Patient 25 - 35 minutes - Subjective Interval history: Pt was seen and examined at bedside this AM. She states she is doing OK and her abdominal pain is about the same as yesterday. No bowel movements and no flatus. Admits to some nausea due to pain. - Constitutional Vitals: Temp Pulse Resp BP Pulse Ox 97.7 F 81 18 109/67 95 01/18/17 20:30 01/18/17 20:30 01/18/17 20:30 01/18/17 20:30 01/18/17 20:30 General appearance: Present: cooperative, A&O X 3, pleasant, no acute distress, obese, answers questions appropriately - Head Head exam: Present: atraumatic, normal inspection, normocephalic - ENT ENT exam: Present: mucous membranes moist - Respiratory Respiratory exam: Present: CTAB. Absent: rales, respiratory distress, rhonchi, wheezes - Cardiovascular Cardiovascular exam: Present: RRR, +S1, +S2 - GI/Abdominal GI/Abdominal exam: Present: normal bowel sounds, soft, tenderness (diffuse tenderness to palpation). Absent: distended, guarding Internal Medicine: Result - Labs CBC & Chem 7: 01/18/17 03:37 01/18/17 03:37 Labs: Short CBC 01/18/17 Range/Units 03:37 WBC 7.0 (4.3-11.1) K/mcL Hgb 9.7 L (11.5-15.4) g/dL Hct 29.0 L (35.3-44.9) % Plt Count 222 (140-400) K/mcL Neutrophils # 4.2 (1.6-8.9) K/mcL BMP 01/18/17 03:37 Sodium 137 Potassium 3.8 Chloride 104 Carbon Dioxide 26 BUN 3 L Creatinine 0.76 Glucose 132 H Calcium 8.2 L - ABG Interpretation ABG results: PT/INR, D-dimer PT 10.3 Seconds (9.4-12.1) 01/13/17 20:24 - VTE Documentation of Mechanical Device: Intermittent pneumatic compression device Consult Discharge Plan - Plan Referrals: Nela Naylor DO [Primary Care Provider] - 01/22/17 10:00 am <Rodney Lopez - Last Filed: 01/19/17 11:42> Date of Encounter: 01/18/17 - Constitutional Vitals: Temp Pulse Resp BP Pulse Ox 97.9 F 80 14 127/78 94 01/19/17 06:36 01/19/17 06:36 01/19/17 06:36 01/19/17 06:36 01/19/17 06:36 Internal Medicine: Result - Labs CBC & Chem 7: 01/19/17 05:42 01/19/17 05:42 Labs: Short CBC 01/19/17 Range/Units 05:42 WBC 7.6 (4.3-11.1) K/mcL Hgb 11.0 L (11.5-15.4) g/dL Hct 32.8 L (35.3-44.9) % Plt Count 256 (140-400) K/mcL Neutrophils # 4.7 (1.6-8.9) K/mcL BMP 01/19/17 05:42 Sodium 139 Potassium 3.9 Chloride 104 Carbon Dioxide 29 BUN 5 L Creatinine 0.83 Glucose 144 H Calcium 9.3 - ABG Interpretation ABG results: PT/INR, D-dimer PT 10.3 Seconds (9.4-12.1) 01/13/17 20:24 - Attending Attestation I examined this patient and my medical decision-making was reviewed with the Resident Physician on 01/18/17. I agree with the documented findings, disposition and treatment plan as described except to the extent set forth below. Please see event note of this date for attestation.
[2017-01-18] MEDS: *HR* HYDROcodone/Acet 5/325 mg TABLET PO PRN (22:01)
[2017-01-19] MEDS: metroNIDAZOLE 500 MG TABLET PO SCH ×3 (00:59→15:43)
[2017-01-19 06:13] LABS: Basophils # 0.1 K/mcL (0.0-0.2); Basophils % 0.8 %; Eosinophils # 0.3 K/mcL (0.0-0.6); Eosinophils % 3.7 %; Hematocrit 32.8 % (35.3-44.9); Immature Granulocytes % 1.5 % (0-4); Lymphocytes # 1.8 K/mcL (0.6-4.6); Mean Corpuscular HGB Conc 33.5 g/dL (31.6-35.5); Mean Corpuscular Hemoglobin 31.1 pg (28.0-33.3); Mean Corpuscular Volume 92.7 fL (83.0-100.0); Mean Platelet Volume 9.8 fL (9.4-12.4); Monocytes # 0.6 K/mcL (0.0-1.3); Monocytes % 8.2 %; Neutrophils # 4.7 K/mcL (1.6-8.9); Nucleated Red Blood Cells 0.3 /100 WBC (0); Platelet Count 256 K/mcL (140-400); Red Blood Count 3.54 M/mcL (3.82-4.97); Red Cell Distribution Width 13.5 % (11.5-14.5); Segmented Neutrophils % 61.8 %
[2017-01-19 06:27] LABS: BUN/Creatinine Ratio 6 (6-26); Blood Urea Nitrogen 5 mg/dL (7-20); Calcium 9.3 mg/dL (8.6-10.8); Carbon Dioxide 29 mEq/L (19-29); Chloride 104 mEq/L (98-109); Glucose 144 mg/dL (70-99); Osmolality,Calculated 288 (280-300); Potassium 3.9 mEq/L (3.5-4.5); Sodium 139 mEq/L (136-145); eGFR For African Americans > 60 (> 60); eGFR For Non-African Americans > 60 (> 60)
[2017-01-19 09:00] LABS: Magnesium 1.5 mg/dL (1.6-2.6)
[2017-01-19] MEDS: Insulin LISPRO 300 UNITS/3 ML VIAL SQ SCH ×4 (09:00→20:49)
[2017-01-19] MEDS: Gabapentin 300 MG CAPSULE PO SCH ×3 (09:04→20:49)
[2017-01-19] MEDS: FLUoxetine 20 MG CAPSULE PO SCH (09:04)
[2017-01-19] MEDS: Loratadine 10 MG TABLET PO SCH (09:04)
[2017-01-19] MEDS: Aspirin Enteric Coated 325 MG Tablet PO SCH (09:05)
[2017-01-19] MEDS: Magnesium Oxide 400 MG TABLET PO SCH ×2 (09:05→20:48)
[2017-01-19] MEDS: Cholecalciferol (D-3) 1,000 UNIT TABLET PO SCH (09:05)
[2017-01-19] MEDS ORDERED: Magnesium Sulfate 1 GM in D5% in Water 100 ML IVPB ONE (10:34)
--- NOTE | 2017-01-19 10:34 | Internal Med Progress Note ---
Date of Encounter: 01/19/17 Time of Encounter: 10:15 - Assessment and plan (1) Sepsis Current Visit: Yes Status: Resolved Assessment and plan: Secondary to Colitis Given clinical presentation, appears to be ischemic colitis continue empiric abx clinically improving Advance to ADA diet today s/p colonoscopy(01/17/17): erythema of sigmoid and descending colon consistent with colitis, no active bleeding reported pain control (d/c iv pain meds, started [place] 5/325 PO q6h prn moderate to severe pain, concern for patient abusing IV pain meds, patient educated about the adverse effects associated with narcotic pain meds) pt encouraged to get out of bed to chair and increase activity as tolerated Qualifiers: Sepsis type: sepsis due to unspecified organism Qualified Code(s): A41.9 - Sepsis, unspecified organism (2) Colitis Current Visit: Yes Status: Acute Assessment and plan: - Colonoscopy yesterday showing erythema of sigmoid and descending colon consistent with colitis. No evidence of bleed. - Day 7 of 10 of antibiotics, cipro and flagyl - WBC wnl. No longer septic. - Pain control, supportive care. -ADA diet - Pathology from colonoscopy pending. (3) UTI (urinary tract infection) Current Visit: Yes Status: Acute Assessment and plan: urine culture strep mutans continue cipro Qualifiers: Urinary tract infection type: site unspecified Hematuria presence: without hematuria Qualified Code(s): N39.0 - Urinary tract infection, site not specified (4) Abdominal pain Current Visit: Yes Status: Acute Assessment and plan: Likely secondary to colitis as above. Qualifiers: Abdominal location: generalized Qualified Code(s): R10.84 - Generalized abdominal pain (5) Melena Current Visit: Yes Status: Resolved Assessment and plan: resolved continue to closely monitor H&H transfuse for Hgb<8 or if clinically symptomatic (6) SWEETIE (acute kidney injury) Current Visit: Yes Status: Resolved Assessment and plan: resolved renal function back to baseline continue to monitor renal function (7) DVT prophylaxis Current Visit: Yes Status: Acute Assessment and plan: SCDs (8) Diabetes Current Visit: Yes Status: Chronic Assessment and plan: continue sliding scale insulin monitor fingerstick and blood glucose ADA diet (9) Hypertension Current Visit: Yes Status: Chronic Assessment and plan: BP within acceptable range continue home meds Qualifiers: Hypertension type: essential hypertension Qualified Code(s): I10 - Essential (primary) hypertension (10) Obesity (BMI 30-39.9) Current Visit: Yes Status: Chronic Assessment and plan: Encourage weight loss as outpatient (11) Metabolic acidosis Current Visit: Yes Status: Resolved Assessment and plan: resolved (12) Hypomagnesemia Current Visit: Yes Status: Resolved Assessment and plan: Mg supplemented continue to monitor electrolytes and replace as needed - Subjective Interval history: Patient seen and examined with family present at bedside. s/p colonoscopy which reported erythema of the sigmoid and descending colon consistent with colitis, no active bleeding reported reports of persistent pain but improved from previous day. Was not able to advance diet yesterday. Will advance to ADA diet pt encouraged to get out of bed to chair and increase activity as tolerated No overnight issues reported. tentative d/c in am pending tolerance of diet - Constitutional Vitals: Temp Pulse Resp BP Pulse Ox 97.9 F 80 14 127/78 94 01/19/17 06:36 01/19/17 06:36 01/19/17 06:36 01/19/17 06:36 01/19/17 06:36 General appearance: Present: cooperative, A&O X 3, pleasant, no acute distress, obese, answers questions appropriately - Head Head exam: Present: atraumatic, normocephalic - Eye Eye exam: Present: conjuntiva pink, sclera anicteric - Respiratory Respiratory exam: Present: CTAB. Absent: respiratory distress, wheezes - Cardiovascular Cardiovascular exam: Present: RRR, +S1, +S2. Absent: diastolic murmur, gallop, rubs, systolic murmur - GI/Abdominal GI/Abdominal exam: Present: normal bowel sounds, soft, no peritoneal signs. Absent: distended, tenderness - Extremities Exam Extremities exam: Present: warm, radial pulses palpable and symmetrical. Absent : calf tenderness, pedal edema - Neurological Exam Neurological exam: Present: alert, oriented X3 - Psychiatric Psychiatric exam: Present: normal affect, normal mood Internal Medicine: Result - Labs CBC & Chem 7: 01/19/17 05:42 01/19/17 05:42 Labs: Short CBC 01/19/17 Range/Units 05:42 WBC 7.6 (4.3-11.1) K/mcL Hgb 11.0 L (11.5-15.4) g/dL Hct 32.8 L (35.3-44.9) % Plt Count 256 (140-400) K/mcL Neutrophils # 4.7 (1.6-8.9) K/mcL BMP 01/19/17 05:42 Sodium 139 Potassium 3.9 Chloride 104 Carbon Dioxide 29 BUN 5 L Creatinine 0.83 Glucose 144 H Calcium 9.3 - ABG Interpretation ABG results: PT/INR, D-dimer PT 10.3 Seconds (9.4-12.1) 01/13/17 20:24 - VTE Documentation of Mechanical Device: Intermittent pneumatic compression device Consult Discharge Plan - Plan Referrals: Nela Naylor DO [Primary Care Provider] - 01/22/17 10:00 am
[2017-01-19] MEDS: *HR* HYDROcodone/Acet 5/325 mg TABLET PO PRN ×2 (13:59→20:48)
[2017-01-19] MEDS: Ondansetron 4 MG/2 ML VIAL IVP PRN (14:00)
[2017-01-19] MEDS ORDERED: *HR* Morphine 2 MG/ML SYRINGE IVP ONE (17:01)
[2017-01-19] MEDS: *HR* Promethazine 25 MG/ML VIAL IV PRN (20:47)
[2017-01-20] MEDS: metroNIDAZOLE 500 MG TABLET PO SCH ×4 (00:40→23:28)
[2017-01-20] MEDS: *HR* Promethazine 25 MG/ML VIAL IV PRN ×4 (03:06→21:41)
[2017-01-20] MEDS: *HR* HYDROcodone/Acet 5/325 mg TABLET PO PRN ×4 (03:06→20:07)
[2017-01-20 03:41] LABS: Basophils # 0.1 K/mcL (0.0-0.2); Basophils % 0.7 %; Eosinophils # 0.2 K/mcL (0.0-0.6); Eosinophils % 2.6 %; Hematocrit 30.5 % (35.3-44.9); Hemoglobin 10.1 g/dL (11.5-15.4); Immature Granulocytes % 2.4 % (0-4); Lymphocytes # 1.9 K/mcL (0.6-4.6); Lymphocytes % 22.6 %; Mean Corpuscular HGB Conc 33.1 g/dL (31.6-35.5); Mean Corpuscular Hemoglobin 30.8 pg (28.0-33.3); Mean Platelet Volume 9.7 fL (9.4-12.4); Monocytes # 0.7 K/mcL (0.0-1.3); Monocytes % 8.3 %; Neutrophils # 5.3 K/mcL (1.6-8.9); Nucleated Red Blood Cells 0.2 /100 WBC (0); Platelet Count 248 K/mcL (140-400); Red Blood Count 3.28 M/mcL (3.82-4.97); Red Cell Distribution Width 13.7 % (11.5-14.5); Segmented Neutrophils % 63.4 %
[2017-01-20 03:56] LABS: BUN/Creatinine Ratio 10 (6-26); Blood Urea Nitrogen 10 mg/dL (7-20); Calcium 8.7 mg/dL (8.6-10.8); Carbon Dioxide 29 mEq/L (19-29); Chloride 102 mEq/L (98-109); Glucose 188 mg/dL (70-99); Magnesium 1.3 mg/dL (1.6-2.6); Osmolality,Calculated 290 (280-300); Phosphorous 3.9 mg/dL (2.3-4.7); Potassium 4.4 mEq/L (3.5-4.5); Sodium 138 mEq/L (136-145); eGFR For African Americans > 60 (> 60); eGFR For Non-African Americans > 60 (> 60)
[2017-01-20] MEDS: Cholecalciferol (D-3) 1,000 UNIT TABLET PO SCH (08:53)
[2017-01-20] MEDS: Magnesium Oxide 400 MG TABLET PO SCH ×2 (08:53→20:07)
[2017-01-20] MEDS: Gabapentin 300 MG CAPSULE PO SCH ×3 (08:53→20:07)
[2017-01-20] MEDS: Aspirin Enteric Coated 325 MG Tablet PO SCH (08:54)
[2017-01-20] MEDS: FLUoxetine 20 MG CAPSULE PO SCH (08:54)
[2017-01-20] MEDS: Loratadine 10 MG TABLET PO SCH (08:54)
[2017-01-20] MEDS: Insulin LISPRO 300 UNITS/3 ML VIAL SQ SCH ×4 (08:58→20:08)
--- NOTE | 2017-01-20 10:07 | Internal Med Progress Note ---
Date of Encounter: 01/20/17 Time of Encounter: 09:45 - Assessment and plan (1) Superficial vein thrombosis Current Visit: Yes Status: Acute Assessment and plan: Preliminary vascular doppler of RENÉE reported Superficial thrombus of cephalic vein, lower and upper arm will continue supportive care at this time cautiously use NSAIDs hot compressors pain control likely d/c in am if pain is appropriately controlled (2) Sepsis Current Visit: Yes Status: Resolved Assessment and plan: Secondary to Colitis Given clinical presentation, appears to be ischemic colitis continue empiric abx (Day 09/17) clinically improving Advance to ADA diet today s/p colonoscopy(01/17/17): erythema of sigmoid and descending colon consistent with colitis, no active bleeding reported pain control (d/c iv pain meds, [place] 5/325 PO q6h prn moderate to severe pain, concern for patient abusing IV pain meds, patient educated about the adverse effects associated with narcotic pain meds) pt encouraged to get out of bed to chair and increase activity as tolerated Qualifiers: Sepsis type: sepsis due to unspecified organism Qualified Code(s): A41.9 - Sepsis, unspecified organism (3) Colitis Current Visit: Yes Status: Acute Assessment and plan: - Colonoscopy yesterday showing erythema of sigmoid and descending colon consistent with colitis. No evidence of bleed. - Day 8 of 10 of antibiotics, cipro and flagyl - WBC wnl. No longer septic. - Pain control, supportive care. -ADA diet - Pathology from colonoscopy pending. (4) UTI (urinary tract infection) Current Visit: Yes Status: Acute Assessment and plan: urine culture strep mutans continue cipro Qualifiers: Urinary tract infection type: site unspecified Hematuria presence: without hematuria Qualified Code(s): N39.0 - Urinary tract infection, site not specified (5) Abdominal pain Current Visit: Yes Status: Resolved Assessment and plan: Likely secondary to colitis as above. Qualifiers: Abdominal location: generalized Qualified Code(s): R10.84 - Generalized abdominal pain (6) Melena Current Visit: Yes Status: Resolved Assessment and plan: resolved continue to closely monitor H&H transfuse for Hgb<8 or if clinically symptomatic (7) SWEETIE (acute kidney injury) Current Visit: Yes Status: Resolved Assessment and plan: resolved renal function back to baseline continue to monitor renal function (8) DVT prophylaxis Current Visit: Yes Status: Acute Assessment and plan: SCDs (9) Diabetes Current Visit: Yes Status: Chronic Assessment and plan: continue sliding scale insulin monitor fingerstick and blood glucose ADA diet (10) Hypertension Current Visit: Yes Status: Chronic Assessment and plan: BP within acceptable range continue home meds Qualifiers: Hypertension type: essential hypertension Qualified Code(s): I10 - Essential (primary) hypertension (11) Obesity (BMI 30-39.9) Current Visit: Yes Status: Chronic Assessment and plan: Encourage weight loss as outpatient (12) Metabolic acidosis Current Visit: Yes Status: Resolved (13) Hypomagnesemia Current Visit: Yes Status: Resolved Assessment and plan: Mg supplemented continue to monitor electrolytes and replace as needed - Subjective Interval history: Patient seen and examined with family present at bedside. s/p colonoscopy which reported erythema of the sigmoid and descending colon consistent with colitis, no active bleeding reported reports of persistent pain but improved from previous day. Tolerating ADA diet Pt reported of left arm pain yesterday evening, there was concern for superficial thrombophlebitis given history of infiltrated IV on that arm in the past, however a left UE venous doppler obtained. Preliminary venous doppler reported no DVT however positive for superficial thrombus of cephalic vein, lower, and upper arm. I had a detailed discussion with the long lines operator oncologist/ order worker in regards to the treatment plan, given history of recent ischemic colitis, will hold off on anticoagulation at this time, supportive care is recommended, will cautiously use NSAIDs, hot compressors. Patient informed about the doppler results, she appears to be in no discomfort, however states the arm pain has not been tolerated with PO meds as of yet. Will titrate therapy for PO medications and likely d/c in am once pain is appropriately controlled Patient encourage to get out of bed to chair and increase activity as tolerated. PT evaluation is requested. - Constitutional Vitals: Temp Pulse Resp BP Pulse Ox 98.5 F 83 16 114/56 96 01/20/17 07:14 01/20/17 07:14 01/20/17 07:14 01/20/17 07:14 01/20/17 07:14 General appearance: Present: cooperative, A&O X 3, pleasant, no acute distress, obese, answers questions appropriately - Head Head exam: Present: atraumatic, normocephalic - Eye Eye exam: Present: conjuntiva pink, sclera anicteric - Respiratory Respiratory exam: Present: CTAB. Absent: respiratory distress, wheezes - Cardiovascular Cardiovascular exam: Present: RRR, +S1, +S2. Absent: diastolic murmur, gallop, rubs, systolic murmur - GI/Abdominal GI/Abdominal exam: Present: normal bowel sounds, soft, no peritoneal signs. Absent: distended, tenderness - Extremities Exam Extremities exam: Present: tenderness (left distal arm tender to palpation, no erythema noted ), warm, radial pulses palpable and symmetrical. Absent: calf tenderness, pedal edema - Neurological Exam Neurological exam: Present: alert, oriented X3 - Psychiatric Psychiatric exam: Present: normal affect, normal mood Internal Medicine: Result - Labs CBC & Chem 7: 01/20/17 03:11 01/20/17 03:11 Labs: Short CBC 01/20/17 Range/Units 03:11 WBC 8.4 (4.3-11.1) K/mcL Hgb 10.1 L (11.5-15.4) g/dL Hct 30.5 L (35.3-44.9) % Plt Count 248 (140-400) K/mcL Neutrophils # 5.3 (1.6-8.9) K/mcL BMP 01/20/17 03:11 Sodium 138 Potassium 4.4 Chloride 102 Carbon Dioxide 29 BUN 10 Creatinine 0.96 Glucose 188 H Calcium 8.7 - ABG Interpretation ABG results: PT/INR, D-dimer PT 10.3 Seconds (9.4-12.1) 01/13/17 20:24 - VTE Documentation of Mechanical Device: Intermittent pneumatic compression device Consult Discharge Plan - Plan Referrals: Nela Naylor DO [Primary Care Provider] - 01/22/17 10:00 am
[2017-01-20] MEDS ORDERED: *HR* HYDROcodone/Acet 5/325 mg TABLET PO SCH (12:00)
[2017-01-20] MEDS ORDERED: *HR* Morphine 2 MG/ML SYRINGE IVP PRN (22:50)
[2017-01-21] MEDS: *HR* HYDROcodone/Acet 5/325 mg TABLET PO PRN ×3 (03:52→14:47)
[2017-01-21] MEDS: *HR* Promethazine 25 MG/ML VIAL IV PRN (03:55)
[2017-01-21 06:54] LABS: BUN/Creatinine Ratio 21 (6-26); Blood Urea Nitrogen 17 mg/dL (7-20); Calcium 8.1 mg/dL (8.6-10.8); Carbon Dioxide 26 mEq/L (19-29); Chloride 102 mEq/L (98-109); Glucose 144 mg/dL (70-99); Magnesium 1.7 mg/dL (1.6-2.6); Osmolality,Calculated 284 (280-300); Phosphorous 4.2 mg/dL (2.3-4.7); Potassium 4.1 mEq/L (3.5-4.5); Sodium 135 mEq/L (136-145); eGFR For African Americans > 60 (> 60); eGFR For Non-African Americans > 60 (> 60)
[2017-01-21 06:58] VITALS: BP 99/77
[2017-01-21 06:59] LABS: Eosinophils % 1.9 %; Hematocrit 29.5 % (35.3-44.9); Hemoglobin 9.7 g/dL (11.5-15.4); Immature Granulocytes % 2.3 % (0-4); Mean Corpuscular HGB Conc 32.9 g/dL (31.6-35.5); Mean Corpuscular Hemoglobin 30.4 pg (28.0-33.3); Mean Corpuscular Volume 92.5 fL (83.0-100.0); Mean Platelet Volume 9.5 fL (9.4-12.4); Monocytes % 8.5 %; Platelet Count 266 K/mcL (140-400); Red Blood Count 3.19 M/mcL (3.82-4.97); Red Cell Distribution Width 13.7 % (11.5-14.5); Segmented Neutrophils % 65.6 %
[2017-01-21 07:00] LABS: Basophils # 0.1 K/mcL (0.0-0.2); Basophils % 0.7 %; Eosinophils # 0.2 K/mcL (0.0-0.6); Lymphocytes # 2.2 K/mcL (0.6-4.6); Monocytes # 0.9 K/mcL (0.0-1.3); Neutrophils # 6.8 K/mcL (1.6-8.9); Nucleated Red Blood Cells 0.4 /100 WBC (0)
[2017-01-21] MEDS: Cholecalciferol (D-3) 1,000 UNIT TABLET PO SCH (08:42)
[2017-01-21] MEDS: metroNIDAZOLE 500 MG TABLET PO SCH (08:43)
[2017-01-21] MEDS: FLUoxetine 20 MG CAPSULE PO SCH (08:43)
[2017-01-21] MEDS: Magnesium Oxide 400 MG TABLET PO SCH (08:43)
[2017-01-21] MEDS: Aspirin Enteric Coated 325 MG Tablet PO SCH (08:43)
[2017-01-21] MEDS: Gabapentin 300 MG CAPSULE PO SCH ×2 (08:43→14:41)
[2017-01-21] MEDS: Loratadine 10 MG TABLET PO SCH (08:44)
--- NOTE | 2017-01-21 10:13 | Discharge Summary ---
Date of Encounter: 01/21/17 Time of Encounter: 09:10 - Discharge Diagnosis (1) Superficial vein thrombosis Priority: Secondary Status: Acute (2) Sepsis Priority: Primary Status: Resolved Qualifiers: Sepsis type: sepsis due to unspecified organism Qualified Code(s): A41.9 - Sepsis, unspecified organism (3) Colitis Priority: Primary Status: Acute (4) UTI (urinary tract infection) Priority: Secondary Status: Acute Qualifiers: Urinary tract infection type: site unspecified Hematuria presence: without hematuria Qualified Code(s): N39.0 - Urinary tract infection, site not specified (5) Abdominal pain Priority: Primary Status: Resolved Qualifiers: Abdominal location: generalized Qualified Code(s): R10.84 - Generalized abdominal pain (6) Melena Priority: Secondary Status: Resolved (7) SWEETIE (acute kidney injury) Priority: Secondary Status: Resolved (8) DVT prophylaxis Priority: Secondary Status: Acute (9) Diabetes Priority: Secondary Status: Chronic (10) Hypertension Priority: Secondary Status: Chronic Qualifiers: Hypertension type: essential hypertension Qualified Code(s): I10 - Essential (primary) hypertension (11) Obesity (BMI 30-39.9) Priority: Secondary Status: Chronic (12) Metabolic acidosis Priority: Secondary Status: Resolved (13) Hypomagnesemia Priority: Secondary Status: Resolved - Discharge Medications Prescriptions: RX: metroNIDAZOLE [Flagyl] 500 mg PO Q8HR #5 tablet RX: Ciprofloxacin [Cipro] 500 mg PO Q12HR #3 tablet RX: HYDROcodone/Acet 7.5/325 mg [[place] 7.5-325 mg] 1 tab PO Q6H PRN #15 tablet PRN Reason: Severe Pain Home Medications: RX: Acetaminophen w/Cod 300-30 mg [Tylenol w/Codeine #3] 1 tab PO Q12H PRN 06/04 [History] RX: Albuterol Sulfate [Proair Hfa] 1 - 2 puff IH Q4-6H PRN 06/04/16 [History] RX: Amlodipine Besylate 10 mg PO DAILY 06/04/16 [History] RX: Aspirin [Ecotrin] 325 mg PO DAILY 06/04/16 [History] RX: Atorvastatin Calcium [Lipitor] 20 mg PO HS 06/04/16 [History] RX: Cholecalciferol (D-3) [Vitamin D] 2,000 unit PO DAILY 06/04/16 [History] RX: Cyclobenzaprine HCl 2.5 - 5 mg PO TID PRN 06/04/16 [History] RX: FLUoxetine HCl [Fluoxetine HCl] 40 mg PO DAILY 06/04/16 [History] RX: Ferrous Sulfate [Iron] 325 mg PO BID 06/04/16 [History] RX: Gabapentin [Neurontin] 300 mg PO TID 06/04/16 [History] RX: Glimepiride [Amaryl] 1 mg PO BID 06/04/16 [History] RX: Lisinopril/Hydrochlorothiazide [Zestoretic 20-12.5 mg Tablet] 1 tab PO BID 06/04/16 [History] RX: Loratadine [Allergy Relief] 10 mg PO DAILY 06/04/16 [History] RX: Magnesium Oxide [Magnesium] 400 mg PO BID 06/04/16 [History] RX: Pantoprazole Sodium [Protonix] 40 mg PO DAILY 06/04/16 [History] RX: Ranitidine HCl [Zantac] 150 mg PO BID 06/04/16 [History] RX: Spironolactone [Aldactone] 50 mg PO DAILY 06/04/16 [History] RX: Amitriptyline [Elavil] 25 mg PO HS 01/13/17 [History] RX: Ciprofloxacin [Cipro] 500 mg PO Q12HR #3 tablet 01/21/17 [Rx] RX: HYDROcodone/Acet 7.5/325 mg [[place] 7.5-325 mg] 1 tab PO Q6H PRN #15 tablet 01/21/17 [Rx] RX: metroNIDAZOLE [Flagyl] 500 mg PO Q8HR #5 tablet 01/21/17 [Rx] Allergies/Adverse Reactions: 3 Allergy/AdvReac Type Severity Reaction Status Date / Time clonidine Allergy Blister Verified 01/13/17 20:12 Procedures/tests Complete & Pending: Procedures Performed prior 72 hours Category Date Time Status Venous Doppler [EV venous imaging UE LT] Routine Y 01/19/17 14:53 Completed Date of admission: 01/14/17 16:21 Primary care physician: Nela Naylor DO Consults: 01/20/17 09:36 Consult to Physical Therapy [CONS] Routine Comment: Evaluate, develop and implement POC Reason for Consult: decreased mobility OT [Consult to Occupational Therapy] [CONS] Routine Comment: Evaluate, develop and implement POC Reason for Consult: difficulty with ADL's Discharging clinician: Gosia Naylor Anticipated date of discharge: 01/21/17 - Patient Status Disposition: Home, Self-Care Condition: Serious Functional capacity at discharge: uses cane/walker Overall status at discharge: patient is back to baseline - Discharge Instructions Follow Up With: Nela Naylor DO [Primary Care Provider] - 01/22/17 10:00 am Additional Instructions: Please follow up with your primary care physician within five days after your discharge from the hospital. Continue to hold your blood pressure medications (Amlodipine, Lisinopril/HCTZ, Spironolactone) for systolic blood pressure less than 120. DO NOT TAKE PAIN MEDICATIONS IF YOU ARE NOTED TO HAVE SYSTOLIC BLOOD PRESSURE LESS THAN 100 Continue oral antiboitics (ciprofloxacin and Flagyl for one more day including tonight's dose) Continue to apply hot compressors on your left arm. If pain persists after one week, please seek medical help. Resume all other home medications as prescribed by your primary care physician. - Diet and Activity Activity: increase activity as tolerated Diet: diabetic diet, low fat, low cholesterol, low salt diet Hospital course: Ms. Mireles is a 51 year old female with PMH Of HTN,HLD, DM,GERD, Obesity who was admitted for sepsis secondary to ischemic colitis. She was followed by surgery and started on empiric IV abx, IV fluids, NPO, and pain medications. Since her symptoms persisted, she was taken for a colonoscopy which reported erythema of the sigmoid and descending colon consistent with colitis, no active bleeding reported. Pt was slowly advanced to ADA diet. Her hospital course was further complicated by acute superficial venous thrombosis in the left cephalic vein. As per my conversation with wine maker, supportive care was recommended. Pt was noted to be hypotensive this morning however clinically asymptomatic. She is stable for discharge with follow up with her primary care physician. - Time Spent with Patient Total time spent providing and/or coordinating discharge services: Greater than 30 minutes - Constitutional Vitals: Temp Pulse Resp BP Pulse Ox 98.1 F 81 17 99/77 95 01/21/17 06:52 01/21/17 06:52 01/21/17 06:52 01/21/17 06:52 01/21/17 06:52 General appearance: Present: cooperative, A&O X 3, pleasant, no acute distress, obese, answers questions appropriately - Head Head exam: Present: atraumatic, normocephalic - Respiratory Respiratory exam: Present: CTAB. Absent: respiratory distress, wheezes, tachypnea - Cardiovascular Cardiovascular exam: Present: RRR, +S1, +S2. Absent: diastolic murmur, gallop, rubs, systolic murmur - GI/Abdominal GI/Abdominal exam: Present: normal bowel sounds, soft, no peritoneal signs. Absent: distended, tenderness - Extremities Exam Extremities exam: Present: warm, radial pulses palpable and symmetrical. Absent : calf tenderness, pedal edema - Neurological Exam Neurological exam: Present: alert, oriented X3 - Psychiatric Psychiatric exam: Present: normal affect, normal mood - VTE Documentation of Mechanical Device: Intermittent pneumatic compression device
[2017-01-21] MEDS: Insulin LISPRO 300 UNITS/3 ML VIAL SQ SCH ×2 (12:21→12:30)
[2017-01-21] MEDS ORDERED: FLUARIX QUAD 2017-18 36MOS UP/PF 0.5 ML SYRINGE IM ONE (14:32)
== END 2017-01-21 15:18 | disposition home or self-care (01) | DRG 871 ==
LOC: 2NENU 19:53 → EMEROO 19:53 → 2NENU 23:29 → SUATTDRO 01-14 16:21
PROVIDERS: ADMIT Internal Medicine; ATTEND Internal Medicine
PROC: ENDOCBX (2017-01-17 10:00)

== ENCOUNTER 2017-08-14 00:02 | Inpatient (IN) ==
[2017-08-14] MEDS ORDERED: Isovue-370 500 ML INFUS..BTL IV ONE (01:15)
--- NOTE | 2017-08-14 01:16 | Emergency Department Note ---
Disposition Clinical Impression: C. difficile diarrhea GI bleeding Qualifiers: GI bleed type/associated pathology: unspecified gastrointestinal hemorrhage type Qualified Code(s): K92.2 - Gastrointestinal hemorrhage, unspecified Abdominal pain Qualifiers: Abdominal location: unspecified location Qualified Code(s): R10.9 - Unspecified abdominal pain Disposition: Admitted As Inpatient Condition: Good General Adult HPI - General Chief complaint: ED Abdominal Pain Stated complaint: abdominal pain,bloody diarhea Time Seen by Provider: 08/14/17 01:06 Source: patient Limitations: no limitations Nursing Notes Reviewed: Yes Vital Signs Reviewed: Yes - History of Present Illness HPI Narrative: Patient has abdominal pain and diarrhea started yesterday and has been progressively worse in nature. Patient describes 20 episodes of diarrhea today. Foul-smelling in nature. History of colitis and diverticulitis. Patient with nausea and one episode of nonbloody nonbilious vomiting. She describes bright red blood as well as dark stools. Patient did give us a stool sample in bedside commode. Sent for Hemoccult as well as C. difficile. Blood work as well as CT scan had been performed. Patient is tachycardic and concern for sepsis. Fluids and antibiotics will be given. Pain Scale: 7 - Related Data Home Medications Medication Instructions Recorded Confirmed Acetaminophen w/Cod 300-30 mg 1 tab PO Q12H PRN 06/04/16 01/13/17 [Tylenol w/Codeine #3] Albuterol Sulfate [Proair Hfa] 1 - 2 puff IH Q4-6H PRN 06/04/16 01/13/17 Amlodipine Besylate 10 mg PO DAILY 06/04/16 01/13/17 Aspirin [Ecotrin] 325 mg PO DAILY 06/04/16 01/13/17 Atorvastatin Calcium [Lipitor] 20 mg PO HS 06/04/16 01/13/17 Cholecalciferol (D-3) [Vitamin D] 2,000 unit PO DAILY 06/04/16 01/13/17 Cyclobenzaprine HCl 2.5 - 5 mg PO TID PRN 06/04/16 01/13/17 FLUoxetine HCl [Fluoxetine HCl] 40 mg PO DAILY 06/04/16 01/13/17 Ferrous Sulfate [Iron] 325 mg PO BID 06/04/16 01/13/17 Gabapentin [Neurontin] 300 mg PO TID 06/04/16 01/13/17 Glimepiride [Amaryl] 1 mg PO BID 06/04/16 01/13/17 Lisinopril/Hydrochlorothiazide 1 tab PO BID 06/04/16 01/13/17 [Zestoretic 20-12.5 mg Tablet] Loratadine [Allergy Relief] 10 mg PO DAILY 06/04/16 01/13/17 Magnesium Oxide [Magnesium] 400 mg PO BID 06/04/16 01/13/17 Pantoprazole Sodium [Protonix] 40 mg PO DAILY 06/04/16 01/13/17 Spironolactone [Aldactone] 50 mg PO DAILY 06/04/16 01/13/17 raNITIdine HCl [Zantac] 150 mg PO BID 06/04/16 01/13/17 Amitriptyline [Elavil] 25 mg PO HS 01/13/17 01/13/17 Previous Rx's Medication Instructions Recorded Ciprofloxacin [Cipro] 500 mg PO Q12HR #3 tablet 01/21/17 HYDROcodone/Acet 7.5/325 mg [[place] 1 tab PO Q6H PRN #15 tablet 01/21/17 7.5-325 mg] metroNIDAZOLE [Flagyl] 500 mg PO Q8HR #5 tablet 01/21/17 Allergies Allergy/AdvReac Type Severity Reaction Status Date / Time clonidine Allergy Blister Verified 08/14/17 00:21 Review of Systems: CONSTITUTIONAL: Weakness and fatigue without fever HEENT: Eyes: No visual changes. Ears, Nose, Throat: No hearing loss, difficulty talking or unable to swallow. SKIN: No rash or itching. CARDIOVASCULAR: No chest pain, chest pressure or chest discomfort. No palpitations or edema. RESPIRATORY: No shortness of breath, cough or sputum. GASTROINTESTINAL: Abdominal pain with diarrhea and vomiting and nausea. GENITOURINARY: No burning on urination or hematuria. NEUROLOGICAL: No headache, dizziness, syncope, paralysis, ataxia, numbness or tingling in the extremities. No change in bowel or bladder control. MUSCULOSKELETAL: No muscle pain, back pain, joint pain or stiffness. Past Medical History - Past Medical History Medical history: Reports: arthritis, diabetes, GERD, hyperlipidemia, hypertension, renal disease Surgical history: Reports: appendectomy, , cholecystectomy Psychiatric history: Reports: anxiety - Social History Smoking Status: Never smoker Smokeless Tobacco Status: No Alcohol use: Reports: none Drug use: Reports: none Physical Exam General: Fatigue Head: Normocephalic Atraumatic Eyes: PERRL, EOMI ENT: Airway patent, no stridor Neck: supple, no meningismus Chest: Lungs clear to auscultation bilateral Cardiac: Regular rate and rhythm, no murmurs, rubs or gallops Abdomen: soft, moderate tenderness to palpation. Nondistended.; no guarding, rebound, or tenderness to percussion Skin: No rash, normal skin tone Neuro: Alert and Oriented to person, place, and time; No focal deficit, - General Limitations: no limitations General appearance: alert Course - Reevaluation(s) Reevaluation #1: The patient has history of colitis. Diverticulitis. Patient has a white count of 24. She was placed on antibiotics and a C. difficile will be sent. Reevaluation #2: C. difficile positive. Patient placed on precautions. - Consultations Consultation #1: Discussed with hospitalist. Patient accepted for admission. Vital Signs Temperature 98.1 F 08/14/17 00:17 Pulse Rate 122 08/14/17 00:17 Respiratory Rate 18 08/14/17 00:17 Blood Pressure 118/73 08/14/17 00:17 O2 Sat by Pulse Oximetry 97 08/14/17 00:17 Temperature 98.1 F 08/14/17 00:17 Pulse Rate 98 08/14/17 02:57 Respiratory Rate 14 08/14/17 02:57 Blood Pressure 110/70 08/14/17 02:57 O2 Sat by Pulse Oximetry 94 08/14/17 02:57 Oxygen Delivery Oxygen Delivery Room Air Medical Decision Making - Medical Records Medical records reviewed: Yes I reviewed the patient's medical records. - Lab Data Lab results reviewed: Yes I reviewed the patient's lab results. Result diagrams: 08/14/17 01:09 08/14/17 01:09 Lab Results 08/14/17 08/14/17 08/14/17 Range/Units 00:20 00:22 01:09 WBC 24.8 H (4.3-11.1) K/mcL RBC 5.03 H (3.82-4.97) M/mcL Hgb 15.7 H (11.5-15.4) g/dL Hct 44.7 (35.3-44.9) % MCV 88.9 (83.0-100.0) fL MCH 31.2 (28.0-33.3) pg MCHC 35.1 (31.6-35.5) g/dL RDW 13.4 (11.5-14.5) % Plt Count 304 (140-400) K/mcL MPV 10.8 (9.4-12.4) fL Immature Gran % 0.8 (0-4) % Seg Neutrophils % 86.0 % Lymphocytes % 6.9 % Monocytes % 6.1 % Eosinophils % 0.0 % Basophils % 0.2 % Neutrophils # 21.3 H (1.6-8.9) K/mcL Lymphocytes # 1.7 (0.6-4.6) K/mcL Monocytes # 1.5 H (0.0-1.3) K/mcL Eosinophils # 0.0 (0.0-0.6) K/mcL Basophils # 0.1 (0.0-0.2) K/mcL Platelet Estimate Normal (Normal) PT (9.4-12.1) Seconds INR Sodium (136-145) mEq/L Potassium (3.5-5.1) mEq/L Chloride (98-107) mEq/L Carbon Dioxide (23-29) mEq/L BUN (6-20) mg/dL Creatinine (0.60-1.20) mg/dL Est GFR ( Amer) (> 60) Est GFR (Non-Af Amer) (> 60) BUN/Creatinine Ratio (6-26) Glucose (70-105) mg/dL Calculated Osmolality (280-300) Lactic Acid (0.5-2.2) mmol/L Calcium (8.6-10.3) mg/dL Total Bilirubin (0.3-1.0) mg/dL Direct Bilirubin (0.0-0.2) mg/dL Indirect Bilirubin (0.0-1.2) mg/dL AST (13-39) Units/L ALT (7-52) Units/L Alkaline Phosphatase (34-104) Units/L Serum Total Protein (6.4-8.9) g/dL Albumin (3.5-5.7) g/dL Globulin (2.4-3.5) g/dL Albumin/Globulin Ratio (1.1-2.2) Lipase (11-82) Units/L Stool Occult Blood Positive A (Negative) Stl C. diff Tox B Gene Positive (Negative) 08/14/17 08/14/17 08/14/17 Range/Units 01:09 01:11 01:28 WBC (4.3-11.1) K/mcL RBC (3.82-4.97) M/mcL Hgb (11.5-15.4) g/dL Hct (35.3-44.9) % MCV (83.0-100.0) fL MCH (28.0-33.3) pg MCHC (31.6-35.5) g/dL RDW (11.5-14.5) % Plt Count (140-400) K/mcL MPV (9.4-12.4) fL Immature Gran % (0-4) % Seg Neutrophils % % Lymphocytes % % Monocytes % % Eosinophils % % Basophils % % Neutrophils # (1.6-8.9) K/mcL Lymphocytes # (0.6-4.6) K/mcL Monocytes # (0.0-1.3) K/mcL Eosinophils # (0.0-0.6) K/mcL Basophils # (0.0-0.2) K/mcL Platelet Estimate (Normal) PT 11.5 (9.4-12.1) Seconds INR 1.0 Sodium 132 L (136-145) mEq/L Potassium 4.0 (3.5-5.1) mEq/L Chloride 99 (98-107) mEq/L Carbon Dioxide 19 L (23-29) mEq/L BUN 36 H (6-20) mg/dL Creatinine 1.33 H (0.60-1.20) mg/dL Est GFR ( Amer) 50 L (> 60) Est GFR (Non-Af Amer) 42 L (> 60) BUN/Creatinine Ratio 27 H (6-26) Glucose 258 H (70-105) mg/dL Calculated Osmolality 291 (280-300) Lactic Acid 2.4 H (0.5-2.2) mmol/L Calcium 9.9 (8.6-10.3) mg/dL Total Bilirubin 0.4 (0.3-1.0) mg/dL Direct Bilirubin 0.1 (0.0-0.2) mg/dL Indirect Bilirubin 0.3 (0.0-1.2) mg/dL AST 17 (13-39) Units/L ALT 34 (7-52) Units/L Alkaline Phosphatase 81 (34-104) Units/L Serum Total Protein 7.6 (6.4-8.9) g/dL Albumin 4.7 (3.5-5.7) g/dL Globulin 2.9 (2.4-3.5) g/dL Albumin/Globulin Ratio 1.6 (1.1-2.2) Lipase 14 (11-82) Units/L Stool Occult Blood (Negative) Stl C. diff Tox B Gene (Negative) - Radiology Data Radiology results reviewed: Yes I reviewed the patient's radiology results. - EKG Data EKG #1 EKG attestation: Yes I reviewed and interpreted this EKG. EKG results narrative: EKG shows sinus tachycardia with ventricular rate of 120. [place] 145. QRS 93. QTC 494. Patient has nonspecific T-wave abnormalities.
[2017-08-14 01:20] LABS: Basophils % 0.2 %; Hematocrit 44.7 % (35.3-44.9); Hemoglobin 15.7 g/dL (11.5-15.4); Immature Granulocytes % 0.8 % (0-4); Lymphocytes # 1.7 K/mcL (0.6-4.6); Lymphocytes % 6.9 %; Mean Corpuscular HGB Conc 35.1 g/dL (31.6-35.5); Mean Corpuscular Hemoglobin 31.2 pg (28.0-33.3); Mean Corpuscular Volume 88.9 fL (83.0-100.0); Mean Platelet Volume 10.8 fL (9.4-12.4); Monocytes # 1.5 K/mcL (0.0-1.3); Monocytes % 6.1 %; Neutrophils # 21.3 K/mcL (1.6-8.9); Platelet Count 304 K/mcL (140-400); Red Blood Count 5.03 M/mcL (3.82-4.97); Red Cell Distribution Width 13.4 % (11.5-14.5)
[2017-08-14 01:24] LABS: Basophils # 0.1 K/mcL (0.0-0.2)
[2017-08-14 01:36] LABS: Prothrombin Time 11.5 Seconds (9.4-12.1)
[2017-08-14 01:43] LABS: Platelet Estimate Normal (Normal)
[2017-08-14 01:53] LABS: Albumin 4.7 g/dL (3.5-5.7); Albumin/Globulin Ratio 1.6 (1.1-2.2); Bilirubin,Direct 0.1 mg/dL (0.0-0.2); Bilirubin,Indirect 0.3 mg/dL (0.0-1.2); Bilirubin,Total 0.4 mg/dL (0.3-1.0); Calcium 9.9 mg/dL (8.6-10.3); Globulin 2.9 g/dL (2.4-3.5); Total Protein 7.6 g/dL (6.4-8.9)
[2017-08-14] MEDS ORDERED: 0.9 % Sodium Chloride 1,000 ML IVC ONE (01:53)
[2017-08-14] MEDS: 0.9 % Sodium Chloride 1,000 ML IVC ONE ×2 (01:59→02:36)
[2017-08-14] MEDS ORDERED: MetroNIDAZOLE 500 MG/100 ML 500 MG/100 ML BAG IVPB ONE (02:20)
[2017-08-14] MEDS ORDERED: *HR* HYDROmorphone (PF) 1 MG/ML SYRINGE IVP ONE ×2 (02:22→04:31)
[2017-08-14] MEDS ORDERED: *HR* Promethazine 25 MG/ML VIAL IVP ONE (02:23)
[2017-08-14] MEDS ORDERED: Ondansetron 4 MG/2 ML VIAL IVP ONE (04:31)
[2017-08-14] MEDS ORDERED: Naloxone 0.4 MG/ML INJ IVP PRN (04:58)
[2017-08-14] MEDS ORDERED: *HR* Promethazine 25 MG/ML VIAL IM PRN (05:05)
[2017-08-14] MEDS ORDERED: *HR* Dextrose 50 % in Water (Syg) 50 ML SYRINGE IVP PRN (05:06)
[2017-08-14] MEDS ORDERED: D5% in Water 1,000 ML IVC PRN (05:06)
[2017-08-14] MEDS ORDERED: Dextrose Gel 15 GM/37.5 ML TUBE PO PRN ×2 (05:06)
--- NOTE | 2017-08-14 05:17 | Internal Med History&Physical ---
Date of Encounter: 08/14/17 Time of Encounter: 04:30 Internal Medicine - H&P: HPI Chief complaint: Abdominal pain, diarrhea Admitted From: Home Plans for Post Hospital Care: Home History of present illness: Ms. Mireles is a 52 year old female present to ER for abdominal pain, nausea, vomiting, and diarrhea. Past medical history is significant for hypertension, diabetes, CKD stages 3, JUAN A on CPAP, history of diverticulitis. Patient said started from yesterday she had abdominal pain, nausea, vomiting, and the diarrhea. Patient described the pain on the lower abdominal, aching. Patient has multiple vomiting, the vomiting are stomach content, no blood in it. Patient has watery and bloody diarrhea. This afternoon, when patient tried to get up from the bathroom, she feels dizziness and fell, hit her head on the cabinet. Patient denies recent hospitalization or antibiotic use. In the emergency room, stool tested shows C. difficile positive. Patient denies history of C. difficile colitis. Patient was admitted for further management. Past Med Surg Social Fam HX - Past Medical History Medical history: arthritis, diabetes, GERD, hyperlipidemia, hypertension, renal disease Additional medical history: hiatel hernia - diverticulosis. stage III renal failure Psychiatric history: anxiety - Past Surgical History Surgical History: appendectomy, , cholecystectomy Additional surgical history: rt carpal,. colonoscopy,. egd,. left thumb. Cleft Palate Repair - Social History Smoking Status: Never smoker Smokeless Tobacco Status: No Alcohol use: none Drug use: none - Family History Father Hx Family Endocrine Disorder: Yes (diabetes) Internal Medicine - H&P: Meds Acetaminophen w/Cod 300-30 mg [Tylenol w/Codeine #3] 1 tab PO Q12H PRN 06/04/16 [History] Albuterol Sulfate [Proair Hfa] 1 - 2 puff IH Q4-6H PRN 06/04/16 [History] Amlodipine Besylate 10 mg PO DAILY 06/04/16 [History] Aspirin [Ecotrin] 325 mg PO DAILY 06/04/16 [History] Atorvastatin Calcium [Lipitor] 20 mg PO HS 06/04/16 [History] Cholecalciferol (D-3) [Vitamin D] 2,000 unit PO DAILY 06/04/16 [History] Cyclobenzaprine HCl 2.5 - 5 mg PO TID PRN 06/04/16 [History] FLUoxetine HCl [Fluoxetine HCl] 40 mg PO DAILY 06/04/16 [History] Ferrous Sulfate [Iron] 325 mg PO BID 06/04/16 [History] Gabapentin [Neurontin] 300 mg PO TID 06/04/16 [History] Glimepiride [Amaryl] 1 mg PO BID 06/04/16 [History] Lisinopril/Hydrochlorothiazide [Zestoretic 20-12.5 mg Tablet] 1 tab PO BID 06/04 [History] Loratadine [Allergy Relief] 10 mg PO DAILY 06/04/16 [History] Magnesium Oxide [Magnesium] 400 mg PO BID 06/04/16 [History] Pantoprazole Sodium [Protonix] 40 mg PO DAILY 06/04/16 [History] Spironolactone [Aldactone] 50 mg PO DAILY 06/04/16 [History] raNITIdine HCl [Zantac] 150 mg PO BID 06/04/16 [History] Amitriptyline [Elavil] 25 mg PO HS 01/13/17 [History] Ciprofloxacin [Cipro] 500 mg PO Q12HR #3 tablet 01/21/17 [Rx] HYDROcodone/Acet 7.5/325 mg [[place] 7.5-325 mg] 1 tab PO Q6H PRN #15 tablet 01/21 [Rx] metroNIDAZOLE [Flagyl] 500 mg PO Q8HR #5 tablet 01/21/17 [Rx] 3 Allergy/AdvReac Type Severity Reaction Status Date / Time clonidine Allergy Blister Verified 08/14/17 00:21 All Systems PM: A 10-system review of systems was performed and is negative for pertinent findings except as documented above in the HPI. - Constitutional Vitals: Temp Pulse Resp BP Pulse Ox 98.1 F 98 18 117/57 94 08/14/17 00:17 08/14/17 02:57 08/14/17 05:03 08/14/17 05:03 08/14/17 02:57 General appearance: Present: A&O X 3, no acute distress, answers questions appropriately - Head Head exam: Present: atraumatic, normocephalic - Eye Eye exam: Present: PERRL, conjuntiva pink, sclera anicteric Pupils: Present: PERRL - Neck Neck exam general surgery: Present: supple, trachea midline. Absent: lymphadenopathy - Respiratory Respiratory exam: Present: CTAB. Absent: accessory muscle use, rales, rhonchi, wheezes - Cardiovascular Cardiovascular exam: Present: RRR, +S1, +S2. Absent: diastolic murmur, gallop, rubs, systolic murmur - GI/Abdominal GI/Abdominal exam: Present: normal bowel sounds, soft, tenderness (Tenderness in 4Q without guarding or rebound), no peritoneal signs. Absent: distended - Extremities Exam Extremities exam: Present: warm, radial pulses palpable and symmetrical. Absent : calf tenderness, cyanotic, pedal edema - Neurological Exam Neurological exam: Present: CN II-XII intact, oriented X3, no focal deficits. Absent: pronater drift, facial droop, speech deficit - Skin Skin exam: Present: dry, intact Internal Med - H&P Results - Labs CBC & Chem 7: 08/14/17 01:09 08/14/17 01:09 - Assessment and plan (1) C. difficile colitis Current Visit: Yes Status: Acute Assessment and plan: Patient has nausea vomiting and diarrhea with C. difficile positive on stool exam. Consider C. difficile colitis. - Patient has high WBC, severe symptoms. Consider severe disease. - Place patient on by mouth vancomycin 250 mg QID and Flagyl IV every 8 hours - No CT evidence of toxic megacolon at this point - Keep patient nothing by mouth at this point, may advance diet when patient is more stabilized (2) Diabetes Current Visit: No Status: Chronic Assessment and plan: Place patient on sliding scale insulin coverage Qualifiers: Diabetes mellitus type: type 2 Diabetes mellitus penitentiary insulin use: unspecified terminal supervisor insulin use status Diabetes mellitus complication status : with kidney complications Diabetes mellitus complication detail: with chronic kidney disease Chronic kidney disease stage: stage 3 (moderate) Qualified Code(s): E11.22 - Type 2 diabetes mellitus with diabetic chronic kidney disease; N18.3 - Chronic kidney disease, stage 3 (moderate) (3) Hypertension Current Visit: No Status: Chronic Assessment and plan: BP is not high at this point. Patient has severe diarrhea and vomiting and volume depletion. Hold BP medication at this point Qualifiers: Hypertension type: essential hypertension Qualified Code(s): I10 - Essential (primary) hypertension (4) SWEETIE (acute kidney injury) Current Visit: No Status: Resolved Assessment and plan: Most likely due to dehydration caused by nausea vomiting and diarrhea. Continue IV fluid and closely follow up her renal function. Avoid nephrotoxic medications. (5) Sepsis Current Visit: No Status: Resolved Assessment and plan: Patient to meet sepsis criteria with leukocytosis, tachycardia, and elevated lactate acid level. The source of infection should be colitis. - Patient has received 2 L IV fluid to ER, will continue with 120ml per hour - Antibiotic treatment for C. difficile colitis with by mouth Vanco and IV Flagyl - Closely monitor patient Qualifiers: Sepsis type: sepsis due to unspecified organism Qualified Code(s): A41.9 - Sepsis, unspecified organism (6) Near syncope Current Visit: Yes Status: Acute Assessment and plan: Patient has near syncope and fall with head hitting. Most likely due to hypovolemia and orthostatic hypotension. - Head CT stat - Place patient on continuous cardiac monitoring. - Time Spent With Patient Total time spent is greater than 50% in coordination of care (as documented) at patient's floor/unit and/or counseling patient: 40 minutes Greater than 35 minutes
[2017-08-14] MEDS: Vancomycin Oral Soln 125 MG/2.5 ML UDC PO SCH ×6 (06:28→21:35)
[2017-08-14] MEDS: *HR* Heparin 5,000 UNIT/ML VIAL SQ SCH ×2 (06:30→18:15)
[2017-08-14] MEDS: Insulin LISPRO 300 UNITS/3 ML VIAL SQ SCH ×3 (06:30→18:06)
[2017-08-14 06:49] LABS: C.difficile Toxin A/B by PCR See reflex test (Not detect); Campylobacter by PCR Not detected (Not detect); Enteroaggregative E.coli(EAEC) ***DETECTED*** (Not detect); Plesiomonas shigelloides PCR Not detected (Not detect); Salmonella PCR Not detected (Not detect); Vibrio PCR Not detected (Not detect); Vibrio cholerae PCR Not detected (Not detect); Yersinia enterocolitica PCR Not detected (Not detect)
[2017-08-14 06:50] LABS: Adenovirus F 40/41 PCR Not detected (Not detect); Astrovirus PCR Not detected (Not detect); Cryptosporidium by PCR Not detected (Not detect); Cyclospora cayetanensis PCR Not detected (Not detect); E. coli O157 by PCR Not detected (Not detect); Entamoeba histolytica PCR Not detected (Not detect); Enteropathogenic E.coli(EPEC) ***DETECTED*** (Not detect); Enterotoxigenic E.coli (ETEC) Not detected (Not detect); Giardia lamblia PCR Not detected (Not detect); Norovirus GI/GII PCR Not detected (Not detect); Rotavirus A PCR Not detected (Not detect); Sapovirus PCR Not detected (Not detect); Shig/EnteroinvasiveE coli EIEC Not detected (Not detect); Shigalike tox-prod E coli STEC Not detected (Not detect)
[2017-08-14] MEDS: 0.9 % Sodium Chloride 1,000 ML IVC SCH ×2 (08:56→18:27)
[2017-08-14] MEDS: *HR* Promethazine 25 MG/ML VIAL IV PRN ×2 (09:42→18:22)
[2017-08-14] MEDS: *HR* HYDROcodone/Acet 7.5/325 mg TABLET PO PRN ×2 (09:42→18:20)
[2017-08-14] MEDS ORDERED: MetroNIDAZOLE 500 MG/100 ML 500 MG/100 ML BAG IVPB SCH (11:00)
[2017-08-14] MEDS: Ondansetron 4 MG/2 ML VIAL IVP PRN (11:51)
[2017-08-14] MEDS: Acetaminophen 325 MG TABLET PO PRN (19:29)
--- NOTE | 2017-08-14 19:54 | Event Note ---
Date of Encounter: 08/14/17 Time of Encounter: 11:00 Patient evaluated by nocturnalist earlier this morning and also by myself Patient is a 52-year-old female who presented with bloody diarrhea and found to have C. difficile/sepsis Continue oral vancomycin
[2017-08-15] MEDS: *HR* Promethazine 25 MG/ML VIAL IV PRN ×3 (00:42→17:55)
[2017-08-15] MEDS: *HR* HYDROcodone/Acet 7.5/325 mg TABLET PO PRN ×3 (00:43→17:55)
[2017-08-15] MEDS: Insulin LISPRO 300 UNITS/3 ML VIAL SQ SCH ×5 (00:43→20:59)
[2017-08-15 01:42] LABS: Basophils % 0.2 %; Eosinophils % 0.2 %; Hematocrit 34.7 % (35.3-44.9); Immature Granulocytes % 0.2 % (0-4); Immature Platelets 4.1 % (1.1-6.1); Lymphocytes # 2.3 K/mcL (0.6-4.6); Lymphocytes % 27.1 %; Mean Corpuscular HGB Conc 34.6 g/dL (31.6-35.5); Mean Corpuscular Hemoglobin 31.6 pg (28.0-33.3); Mean Corpuscular Volume 91.3 fL (83.0-100.0); Monocytes # 0.7 K/mcL (0.0-1.3); Monocytes % 7.6 %; Neutrophils # 5.6 K/mcL (1.6-8.9); Platelet Count 174 K/mcL (140-400); Red Cell Distribution Width 13.9 % (11.5-14.5); Segmented Neutrophils % 64.7 %
[2017-08-15 02:07] LABS: BUN/Creatinine Ratio 23 (6-26); Blood Urea Nitrogen 20 mg/dL (6-20); Carbon Dioxide 22 mEq/L (23-29); Chloride 108 mEq/L (98-107); Glucose 130 mg/dL (70-105); Magnesium 1.4 mg/dL (1.6-2.6); Osmolality,Calculated 284 (280-300); Potassium 3.7 mEq/L (3.5-5.1); Sodium 135 mEq/L (136-145); eGFR For African Americans > 60 (> 60); eGFR For Non-African Americans > 60 (> 60)
[2017-08-15] MEDS: 0.9 % Sodium Chloride 1,000 ML IVC SCH ×2 (02:45→11:10)
[2017-08-15] MEDS: *HR* Heparin 5,000 UNIT/ML VIAL SQ SCH ×2 (05:31→17:46)
[2017-08-15] MEDS: Acetaminophen 325 MG TABLET PO PRN ×2 (05:32→21:06)
[2017-08-15] MEDS: Vancomycin Oral Soln 125 MG/2.5 ML UDC PO SCH ×4 (08:41→21:02)
--- NOTE | 2017-08-15 08:43 | Internal Med Progress Note ---
Date of Encounter: 08/15/17 Time of Encounter: 11:00 - Assessment and plan (1) C. difficile colitis Current Visit: Yes Status: Acute Assessment and plan: Patient has nausea vomiting and diarrhea with C. difficile positive on stool exam. No CT evidence of toxic megacolon at this point Patient still reports some abdominal discomfort but states that diarrhea episodes have decreased Patient started on clear liquid diet and will continue by mouth vancomycin (2) Sepsis Current Visit: No Status: Resolved Assessment and plan: Resolved; continue management as above Qualifiers: Sepsis type: sepsis due to unspecified organism Qualified Code(s): A41.9 - Sepsis, unspecified organism (3) SWEETIE (acute kidney injury) Current Visit: No Status: Resolved Assessment and plan: Resolved; continue to monitor (4) Diabetes Current Visit: No Status: Chronic Assessment and plan: Continue sliding scale insulin coverage Qualifiers: Diabetes mellitus type: type 2 Diabetes mellitus crm specialist insulin use: unspecified crm specialist insulin use status Diabetes mellitus complication status : with kidney complications Diabetes mellitus complication detail: with chronic kidney disease Chronic kidney disease stage: stage 3 (moderate) Qualified Code(s): E11.22 - Type 2 diabetes mellitus with diabetic chronic kidney disease; N18.3 - Chronic kidney disease, stage 3 (moderate) (5) Hypertension Current Visit: No Status: Chronic Assessment and plan: Blood pressures are low normal so we will continue to hold BP medications Qualifiers: Hypertension type: essential hypertension Qualified Code(s): I10 - Essential (primary) hypertension (6) Near syncope Current Visit: Yes Status: Acute (7) DVT prophylaxis Current Visit: No Status: Acute Assessment and plan: Subcutaneous heparin - Time Spent With Patient Total time spent is greater than 50% in coordination of care (as documented) at patient's floor/unit and/or counseling patient: - Subjective Interval history: Patient reports decreased episodes of diarrhea but still complains of abdominal discomfort Plans to start patient on liquid by mouth and monitor - Constitutional Vitals: Temp Pulse Resp BP Pulse Ox 98.2 F 76 18 93/59 99 08/15/17 04:59 08/15/17 04:59 08/15/17 04:59 08/15/17 04:59 08/15/17 04:59 General appearance: Present: A&O X 3, no acute distress, answers questions appropriately - Respiratory Respiratory exam: Present: CTAB. Absent: accessory muscle use, rales, rhonchi, wheezes - Cardiovascular Cardiovascular exam: Present: RRR, +S1, +S2. Absent: diastolic murmur, gallop, rubs, systolic murmur - GI/Abdominal GI/Abdominal exam: Present: soft, tenderness Internal Medicine: Result - Labs CBC & Chem 7: 08/15/17 01:15 08/15/17 01:15 Labs: Short CBC 08/15/17 Range/Units 01:15 WBC 8.6 D (4.3-11.1) K/mcL Hgb 12.0 D (11.5-15.4) g/dL Hct 34.7 L (35.3-44.9) % Plt Count 174 (140-400) K/mcL Neutrophils # 5.6 (1.6-8.9) K/mcL BMP 08/15/17 01:15 Sodium 135 L Potassium 3.7 Chloride 108 H Carbon Dioxide 22 L BUN 20 Creatinine 0.86 Glucose 130 H Calcium 8.0 L - ABG Interpretation ABG results: PT/INR, D-dimer PT 11.5 Seconds (9.4-12.1) 08/14/17 01:11 Consult Discharge Plan - Plan Referrals: Nela Naylor DO [Primary Care Provider] -
[2017-08-15] MEDS ORDERED: D5% in Water 1,000 ML IVC PRN (13:30)
[2017-08-15] MEDS ORDERED: Dextrose Gel 15 GM/37.5 ML TUBE PO PRN ×2 (13:30)
[2017-08-15] MEDS ORDERED: *HR* Dextrose 50 % in Water (Syg) 50 ML SYRINGE IVP PRN (13:30)
[2017-08-15] MEDS ORDERED: Magnesium Oxide 400 MG TABLET PO ONE (19:00)
[2017-08-15 23:06] LABS: VBG Ionized Calcium 1.19 mmol/L (1.15-1.35)
[2017-08-16] MEDS: *HR* Promethazine 25 MG/ML VIAL IV PRN ×4 (00:22→20:17)
[2017-08-16] MEDS: *HR* HYDROcodone/Acet 7.5/325 mg TABLET PO PRN ×4 (00:22→20:17)
[2017-08-16] MEDS: *HR* Heparin 5,000 UNIT/ML VIAL SQ SCH ×2 (06:17→17:07)
[2017-08-16] MEDS: Insulin LISPRO 300 UNITS/3 ML VIAL SQ SCH ×4 (07:52→23:19)
[2017-08-16] MEDS: Vancomycin Oral Soln 125 MG/2.5 ML UDC PO SCH ×4 (07:54→23:18)
[2017-08-16 12:36] LABS: Basophils # 0.1 K/mcL (0.0-0.2); Basophils % 0.7 %; Eosinophils # 0.2 K/mcL (0.0-0.6); Eosinophils % 2.3 %; Hematocrit 35.2 % (35.3-44.9); Hemoglobin 12.4 g/dL (11.5-15.4); Immature Granulocytes % 0.9 % (0-4); Lymphocytes # 3.1 K/mcL (0.6-4.6); Lymphocytes % 44.4 %; Mean Corpuscular HGB Conc 35.2 g/dL (31.6-35.5); Mean Corpuscular Hemoglobin 31.7 pg (28.0-33.3); Mean Platelet Volume 11.2 fL (9.4-12.4); Monocytes # 0.6 K/mcL (0.0-1.3); Platelet Count 174 K/mcL (140-400); Red Blood Count 3.91 M/mcL (3.82-4.97); Red Cell Distribution Width 13.6 % (11.5-14.5); Segmented Neutrophils % 43.7 %
[2017-08-16 14:31] LABS: BUN/Creatinine Ratio 8 (6-26); Blood Urea Nitrogen 6 mg/dL (6-20); Calcium 8.3 mg/dL (8.6-10.3); Carbon Dioxide 18 mEq/L (23-29); Chloride 108 mEq/L (98-107); Glucose 206 mg/dL (70-105); Osmolality,Calculated 286 (280-300); Potassium 4.1 mEq/L (3.5-5.1); Sodium 136 mEq/L (136-145); eGFR For African Americans > 60 (> 60); eGFR For Non-African Americans > 60 (> 60)
--- NOTE | 2017-08-16 15:39 | Electrocardiograph Report ---
[address] [place], [place] [address] Test Date: 2017-08-14 Pat Name: [place] Mireles Department: 103 Room: [facility] Gender: F Legal Compliance Officer: BRANDY : 1965 Requested By: [id number] Order Number: [id number] Reading MD: Gómez Melchor Measurements Intervals [place] Rate: 120 P: 41 DC: 145 QRS: 48 QRSD: 93 T: 59 QT: 423 QTc: 494 Interpretive Statements SINUS TACHYCARDIA Electronically Signed On 08-16-2017 15:38:14 EDT by Gómez Melchor
[2017-08-16] MEDS: Acetaminophen 325 MG TABLET PO PRN ×2 (17:11→23:18)
--- NOTE | 2017-08-16 18:14 | Internal Med Progress Note ---
Date of Encounter: 08/16/17 Time of Encounter: 11:00 - Assessment and plan (1) C. difficile colitis Current Visit: Yes Status: Acute Assessment and plan: Patient presented with diarrhea with blood in stools found to have C. difficile Patient today reports decreased episodes of diarrhea but still complains of abdominal discomfort No CT evidence of toxic megacolon at this point Plans to advance diet as tolerates Will continue by mouth vancomycin (2) Sepsis Current Visit: No Status: Resolved Assessment and plan: Resolved; continue management as above Qualifiers: Sepsis type: sepsis due to unspecified organism Qualified Code(s): A41.9 - Sepsis, unspecified organism (3) SWEETIE (acute kidney injury) Current Visit: No Status: Resolved Assessment and plan: Resolved; continue to monitor (4) Diabetes Current Visit: No Status: Chronic Assessment and plan: Continue sliding scale insulin coverage Qualifiers: Diabetes mellitus type: type 2 Diabetes mellitus terminal supervisor insulin use: unspecified [facility] insulin use status Diabetes mellitus complication status : with kidney complications Diabetes mellitus complication detail: with chronic kidney disease Chronic kidney disease stage: stage 3 (moderate) Qualified Code(s): E11.22 - Type 2 diabetes mellitus with diabetic chronic kidney disease; N18.3 - Chronic kidney disease, stage 3 (moderate) (5) Hypertension Current Visit: No Status: Chronic Assessment and plan: Blood pressures are low normal so we will continue to hold BP medications Qualifiers: Hypertension type: essential hypertension Qualified Code(s): I10 - Essential (primary) hypertension (6) Near syncope Current Visit: Yes Status: Acute Assessment and plan: Patient has near syncope and fall with head hitting. Head CT showed no acute findings Suspect secondary to have hypovolemia due to diarrhea above (7) DVT prophylaxis Current Visit: No Status: Acute Assessment and plan: Subcutaneous heparin - Time Spent With Patient Total time spent is greater than 50% in coordination of care (as documented) at patient's floor/unit and/or counseling patient: - Subjective Interval history: Patient presented with diarrhea with blood in stools found to have C. difficile Patient today reports decreased episodes of diarrhea but still complains of abdominal discomfort Plans to advance diet as tolerates - Constitutional Vitals: Temp Pulse Resp BP Pulse Ox 98.2 F 66 18 129/60 98 08/16/17 16:09 08/16/17 16:09 08/16/17 16:09 08/16/17 16:09 08/16/17 16:09 General appearance: Present: A&O X 3, no acute distress, answers questions appropriately - Respiratory Respiratory exam: Present: CTAB. Absent: accessory muscle use, rales, rhonchi, wheezes - Cardiovascular Cardiovascular exam: Present: RRR, +S1, +S2. Absent: diastolic murmur, gallop, rubs, systolic murmur - GI/Abdominal GI/Abdominal exam: Present: soft, tenderness. Absent: distended Internal Medicine: Result - Labs CBC & Chem 7: 08/16/17 11:51 08/16/17 10:42 Labs: Short CBC 08/16/17 Range/Units 11:51 WBC 6.9 (4.3-11.1) K/mcL Hgb 12.4 (11.5-15.4) g/dL Hct 35.2 L (35.3-44.9) % Plt Count 174 (140-400) K/mcL Neutrophils # 3.0 (1.6-8.9) K/mcL BMP 08/16/17 10:42 Sodium 136 Potassium 4.1 Chloride 108 H Carbon Dioxide 18 L BUN 6 Creatinine 0.75 Glucose 206 H Calcium 8.3 L - ABG Interpretation ABG results: PT/INR, D-dimer PT 11.5 Seconds (9.4-12.1) 08/14/17 01:11 Consult Discharge Plan - Plan Referrals: Nela Naylor DO [Primary Care Provider] -
[2017-08-17] MEDS: *HR* HYDROcodone/Acet 7.5/325 mg TABLET PO PRN ×3 (03:30→17:33)
[2017-08-17] MEDS: *HR* Promethazine 25 MG/ML VIAL IV PRN ×3 (03:30→21:30)
[2017-08-17] MEDS ORDERED: Ondansetron Oral Soln 2 MG/2.5 ML ORAL.SYG PO ONE (05:52)
[2017-08-17] MEDS: *HR* Heparin 5,000 UNIT/ML VIAL SQ SCH ×2 (08:01→16:48)
[2017-08-17] MEDS: Insulin LISPRO 300 UNITS/3 ML VIAL SQ SCH ×4 (09:08→21:11)
[2017-08-17] MEDS: Vancomycin Oral Soln 125 MG/2.5 ML UDC PO SCH ×4 (12:40→22:30)
[2017-08-17] MEDS: Gabapentin 300 MG CAPSULE PO SCH ×2 (15:36→21:03)
--- NOTE | 2017-08-17 16:51 | Internal Med Progress Note ---
Date of Encounter: 08/17/17 Time of Encounter: 15:10 - Assessment and plan (1) C. difficile colitis Current Visit: Yes Status: Acute Assessment and plan: Patient presented with diarrhea with blood in stools found to have C. difficile No CT evidence of toxic megacolon at this point Patient continues to experience decreased episodes of diarrhea but still complains of abdominal discomfort and mildly nauseous continue by mouth vancomycin D4 if tolerating diet better tomorrow and clinically improve, will plan on discharging her soon (2) Sepsis Current Visit: No Status: Resolved Assessment and plan: resolved, mx as above Qualifiers: Sepsis type: sepsis due to unspecified organism Qualified Code(s): A41.9 - Sepsis, unspecified organism (3) SWEETIE (acute kidney injury) Current Visit: No Status: Resolved Assessment and plan: resolved, continue to monitor. Encourage oral intake (4) Diabetes Current Visit: No Status: Chronic Assessment and plan: BG of 29 this AM is likely to be falsely low continue sliding scale coverage Qualifiers: Diabetes mellitus type: type 2 Diabetes mellitus [facility] insulin use: unspecified [facility] insulin use status Diabetes mellitus complication status : with kidney complications Diabetes mellitus complication detail: with chronic kidney disease Chronic kidney disease stage: stage 3 (moderate) Qualified Code(s): E11.22 - Type 2 diabetes mellitus with diabetic chronic kidney disease; N18.3 - Chronic kidney disease, stage 3 (moderate) (5) Hypertension Current Visit: No Status: Chronic Assessment and plan: stable off meds, monitor Qualifiers: Hypertension type: essential hypertension Qualified Code(s): I10 - Essential (primary) hypertension (6) DVT prophylaxis Current Visit: No Status: Acute Assessment and plan: sq heparin - Time Spent With Patient Total time spent is greater than 50% in coordination of care (as documented) at patient's floor/unit and/or counseling patient: - Subjective Interval history: abdominal pain is improving but still lingering on, slightly nauseous after the diet. Diarrhea slowing down to ~ 2 episodes since last night. No fever/chills. - Constitutional Vitals: Temp Pulse Resp BP Pulse Ox 99.0 F 79 16 101/67 94 08/17/17 16:36 08/17/17 16:36 08/17/17 16:36 08/17/17 16:36 08/17/17 16:36 General appearance: Present: A&O X 3, no acute distress, answers questions appropriately Exam: General: Alert and oriented HEENT:EOM, pupils equal, round, and reactive. Cardiovascular:Normal S1 & S2, no murmurs or gallops. No JVD. Pulse regular. Lungs:Normal breath sounds, no wheezes or crackles. Abdomen:Soft, minimal RLQ tenderness Extremities:No deformity, no edema or tenderness, no joint swelling. Neurological:Normal cognition and motor skills. Skin:Normal color, no rash, no lesions. Pulses:Carotid and radial pulses normal +2. Rest of the physical exam is non-contributory Internal Medicine: Result - Labs CBC & Chem 7: 08/16/17 11:51 08/16/17 10:42 - ABG Interpretation ABG results: PT/INR, D-dimer PT 11.5 Seconds (9.4-12.1) 08/14/17 01:11 Consult Discharge Plan - Plan Referrals: Nela Naylor DO [Primary Care Provider] -
[2017-08-17] MEDS: Famotidine 20 MG TABLET PO SCH (21:03)
[2017-08-17] MEDS: Magnesium Oxide 400 MG TABLET PO SCH (21:06)
[2017-08-18] MEDS: *HR* HYDROcodone/Acet 7.5/325 mg TABLET PO PRN ×4 (00:19→22:00)
[2017-08-18] MEDS: Ondansetron 4 MG/2 ML VIAL IVP PRN ×3 (00:19→12:28)
[2017-08-18 02:32] LABS: Basophils # 0.1 K/mcL (0.0-0.2); Basophils % 0.6 %; Eosinophils # 0.3 K/mcL (0.0-0.6); Eosinophils % 3.7 %; Hematocrit 35.1 % (35.3-44.9); Hemoglobin 12.6 g/dL (11.5-15.4); Immature Granulocytes % 0.7 % (0-4); Lymphocytes # 2.9 K/mcL (0.6-4.6); Lymphocytes % 36.1 %; Mean Corpuscular HGB Conc 35.9 g/dL (31.6-35.5); Mean Corpuscular Hemoglobin 32.1 pg (28.0-33.3); Mean Corpuscular Volume 89.3 fL (83.0-100.0); Mean Platelet Volume 10.6 fL (9.4-12.4); Monocytes # 0.5 K/mcL (0.0-1.3); Monocytes % 6.2 %; Neutrophils # 4.3 K/mcL (1.6-8.9); Platelet Count 219 K/mcL (140-400); Red Blood Count 3.93 M/mcL (3.82-4.97); Red Cell Distribution Width 13.2 % (11.5-14.5); Segmented Neutrophils % 52.7 %
[2017-08-18 02:52] LABS: BUN/Creatinine Ratio 15 (6-26); Blood Urea Nitrogen 13 mg/dL (6-20); Carbon Dioxide 28 mEq/L (23-29); Chloride 99 mEq/L (98-107); Glucose 227 mg/dL (70-105); Magnesium 1.5 mg/dL (1.6-2.6); Osmolality,Calculated 291 (280-300); Potassium 4.3 mEq/L (3.5-5.1); Sodium 137 mEq/L (136-145); eGFR For African Americans > 60 (> 60); eGFR For Non-African Americans > 60 (> 60)
[2017-08-18] MEDS: *HR* Heparin 5,000 UNIT/ML VIAL SQ SCH ×2 (06:20→16:49)
[2017-08-18] MEDS: 0.9 % Sodium Chloride 1,000 ML IVC SCH (07:01)
[2017-08-18] MEDS: FLUoxetine 20 MG CAPSULE PO SCH (09:15)
[2017-08-18] MEDS: Famotidine 20 MG TABLET PO SCH ×2 (09:15→21:59)
[2017-08-18] MEDS: Magnesium Oxide 400 MG TABLET PO SCH ×2 (09:16→21:59)
[2017-08-18] MEDS: Cholecalciferol (D-3) 1,000 UNIT TABLET PO SCH (09:16)
[2017-08-18] MEDS: Loratadine 10 MG TABLET PO SCH (09:16)
[2017-08-18] MEDS: Acetaminophen 325 MG TABLET PO PRN (09:16)
[2017-08-18] MEDS: Gabapentin 300 MG CAPSULE PO SCH ×3 (09:16→21:59)
[2017-08-18] MEDS: *HR* Promethazine 25 MG/ML VIAL IV PRN ×2 (09:17→22:00)
[2017-08-18] MEDS: Insulin LISPRO 300 UNITS/3 ML VIAL SQ SCH ×4 (09:18→22:22)
[2017-08-18] MEDS: Vancomycin Oral Soln 125 MG/2.5 ML UDC PO SCH ×4 (11:02→22:22)
--- NOTE | 2017-08-18 16:33 | Internal Med Progress Note ---
Date of Encounter: 08/18/17 Time of Encounter: 15:00 - Assessment and plan (1) C. difficile colitis Current Visit: Yes Status: Acute Assessment and plan: Patient presented with diarrhea with blood in stools found to have C. difficile No CT evidence of toxic megacolon at this point, labs normal continues to improve clinically but she is anxious about returning home yet as nausea is still present and has not had any formed BM yet continue by mouth vancomycin D5 probable d/c tomorrow if continues to improve (2) Sepsis Current Visit: No Status: Resolved Assessment and plan: resolved, mx as above Qualifiers: Sepsis type: sepsis due to unspecified organism Qualified Code(s): A41.9 - Sepsis, unspecified organism (3) Hypomagnesemia Current Visit: No Status: Resolved Assessment and plan: repleted (4) SWEETIE (acute kidney injury) Current Visit: No Status: Resolved Assessment and plan: resolved, continue to monitor. Encourage oral intake (5) Diabetes Current Visit: No Status: Chronic Assessment and plan: BG of 29 this AM is likely to be falsely low continue sliding scale coverage Qualifiers: Diabetes mellitus type: type 2 Diabetes mellitus nursing home insulin use: unspecified terminal superintendent insulin use status Diabetes mellitus complication status : with kidney complications Diabetes mellitus complication detail: with chronic kidney disease Chronic kidney disease stage: stage 3 (moderate) Qualified Code(s): E11.22 - Type 2 diabetes mellitus with diabetic chronic kidney disease; N18.3 - Chronic kidney disease, stage 3 (moderate) (6) Hypertension Current Visit: No Status: Chronic Assessment and plan: stable off meds, monitor Qualifiers: Hypertension type: essential hypertension Qualified Code(s): I10 - Essential (primary) hypertension (7) DVT prophylaxis Current Visit: No Status: Acute Assessment and plan: sq heparin - Time Spent With Patient Total time spent is greater than 50% in coordination of care (as documented) at patient's floor/unit and/or counseling patient: - Subjective Interval history: Generally improving although still has mild RLQ pain associated with nausea. Able to eat a bit more than yesterday. No BM since yesterday. No fever/chills. - Constitutional Vitals: Temp Pulse Resp BP Pulse Ox 98.5 F 70 14 105/70 94 08/18/17 11:31 08/18/17 11:31 08/18/17 11:31 08/18/17 11:31 08/18/17 11:31 General appearance: Present: A&O X 3, no acute distress, answers questions appropriately Exam: General: Alert and oriented HEENT:EOM, pupils equal, round, and reactive. Cardiovascular:Normal S1 & S2, no murmurs or gallops. No JVD. Pulse regular. Lungs:Normal breath sounds, no wheezes or crackles. Abdomen:Soft, minimal RLQ tenderness, no rebound/guarding, bowel sounds present Extremities:No deformity, no edema or tenderness, no joint swelling. Neurological:Normal cognition and motor skills. Skin:Normal color, no rash, no lesions. Pulses:Carotid and radial pulses normal +2. Rest of the physical exam is non-contributory Internal Medicine: Result - Labs CBC & Chem 7: 08/18/17 02:18 08/18/17 02:18 Labs: Short CBC 08/18/17 Range/Units 02:18 WBC 8.1 (4.3-11.1) K/mcL Hgb 12.6 (11.5-15.4) g/dL Hct 35.1 L (35.3-44.9) % Plt Count 219 (140-400) K/mcL Neutrophils # 4.3 (1.6-8.9) K/mcL BMP 08/18/17 02:18 Sodium 137 Potassium 4.3 Chloride 99 Carbon Dioxide 28 BUN 13 Creatinine 0.89 Glucose 227 H Calcium 9.0 - ABG Interpretation ABG results: PT/INR, D-dimer PT 11.5 Seconds (9.4-12.1) 08/14/17 01:11 Consult Discharge Plan - Plan Referrals: Nela Naylor DO [Primary Care Provider] -
[2017-08-19] MEDS: Acetaminophen 325 MG TABLET PO PRN
[2017-08-19] MEDS: *HR* Promethazine 25 MG/ML VIAL IV PRN (05:44)
[2017-08-19] MEDS: *HR* Heparin 5,000 UNIT/ML VIAL SQ SCH (05:44)
[2017-08-19 06:05] LABS: Basophils # 0.1 K/mcL (0.0-0.2); Basophils % 1.3 %; Eosinophils # 0.3 K/mcL (0.0-0.6); Hemoglobin 11.9 g/dL (11.5-15.4); Immature Granulocytes % 3.6 % (0-4); Lymphocytes # 2.9 K/mcL (0.6-4.6); Lymphocytes % 34.5 %; Mean Corpuscular Hemoglobin 30.6 pg (28.0-33.3); Mean Platelet Volume 10.5 fL (9.4-12.4); Monocytes # 0.5 K/mcL (0.0-1.3); Monocytes % 5.5 %; Neutrophils # 4.3 K/mcL (1.6-8.9); Platelet Count 203 K/mcL (140-400); Red Blood Count 3.89 M/mcL (3.82-4.97); Red Cell Distribution Width 13.4 % (11.5-14.5); Segmented Neutrophils % 51.1 %
[2017-08-19 06:29] LABS: BUN/Creatinine Ratio 16 (6-26); Blood Urea Nitrogen 13 mg/dL (6-20); Calcium 9.1 mg/dL (8.6-10.3); Carbon Dioxide 27 mEq/L (23-29); Chloride 101 mEq/L (98-107); Glucose 172 mg/dL (70-105); Magnesium 1.6 mg/dL (1.6-2.6); Osmolality,Calculated 284 (280-300); Potassium 4.2 mEq/L (3.5-5.1); Sodium 135 mEq/L (136-145); eGFR For African Americans > 60 (> 60); eGFR For Non-African Americans > 60 (> 60)
[2017-08-19 07:19] VITALS: BP 119/79
[2017-08-19] MEDS: Cholecalciferol (D-3) 1,000 UNIT TABLET PO SCH (09:48)
[2017-08-19] MEDS: Loratadine 10 MG TABLET PO SCH (09:48)
[2017-08-19] MEDS: FLUoxetine 20 MG CAPSULE PO SCH (09:48)
[2017-08-19] MEDS: Magnesium Oxide 400 MG TABLET PO SCH (09:48)
[2017-08-19] MEDS: Gabapentin 300 MG CAPSULE PO SCH (09:49)
[2017-08-19] MEDS: Vancomycin Oral Soln 125 MG/2.5 ML UDC PO SCH (09:49)
[2017-08-19] MEDS: Famotidine 20 MG TABLET PO SCH (09:49)
[2017-08-19] MEDS: Insulin LISPRO 300 UNITS/3 ML VIAL SQ SCH (09:50)
--- NOTE | 2017-08-19 10:01 | Discharge Summary ---
- NOTES TO OUTPATIENT PROVIDER Notes to Outpatient Provider: Follow up for resolution of C diff colitis. 14 day course of PO vanc. Anti-HTN meds on hold due to borderline BP. Date of Encounter: 08/19/17 Time of Encounter: 09:30 - Discharge Diagnosis (1) C. difficile colitis Priority: Primary Status: Acute (2) Sepsis Priority: Secondary Status: Resolved Qualifiers: Sepsis type: sepsis due to unspecified organism Qualified Code(s): A41.9 - Sepsis, unspecified organism (3) Hypomagnesemia Priority: Secondary Status: Resolved (4) SWEETIE (acute kidney injury) Priority: Secondary Status: Resolved (5) Diabetes Priority: Secondary Status: Chronic Qualifiers: Diabetes mellitus type: type 2 Diabetes mellitus group home insulin use: unspecified intermediate frame tender insulin use status Diabetes mellitus complication status : with kidney complications Diabetes mellitus complication detail: with chronic kidney disease Chronic kidney disease stage: stage 3 (moderate) Qualified Code(s): E11.22 - Type 2 diabetes mellitus with diabetic chronic kidney disease; N18.3 - Chronic kidney disease, stage 3 (moderate) (6) Hypertension Priority: Secondary Status: Chronic Qualifiers: Hypertension type: essential hypertension Qualified Code(s): I10 - Essential (primary) hypertension (7) DVT prophylaxis Priority: Secondary Status: Acute Hospital course: Ms. Mireles is a 52 year old female with PMHx of DM, HTN presented to the ED with abdominal pain, nausea, vomiting, and diarrhea. Stool positive for C. diff , CT did not show any evidence of colitis. She also had WBC of 24.8, and SWEETIE. She was managed with PO Vanc 125mg QID with symptomatic improvement after 5 days of inpatient treatment. Diarrhea slowed down and pain has improved. OF note , anti-HTN meds were held while inpatient due to borderline BP. To be restarted as an outpatient. She is to complete 8 additional days of PO vanc and follow up with PCP. Discharge discussed with: patient - Time Spent with Patient Total time spent providing and/or coordinating discharge services: Greater than 30 minutes - Discharge Medications Prescriptions: HYDROcodone/Acet 7.5/325 mg [[place] 7.5-325 mg] 1 tab PO Q6HR PRN 5 Days #20 tablet PRN Reason: Severe Pain Ondansetron Oral Soln [Zofran Oral Soln] 2 mg PO Q6-8H PRN 10 Days #40 oral.syg PRN Reason: Nausea And Vomiting Vancomycin Oral Soln [Firvanq] 125 mg PO QID 8 Days #32 unit Home Medications: Albuterol Sulfate [Proair Hfa] 1 - 2 puff IH Q4-6H PRN 06/04/16 [History] Aspirin [Ecotrin] 325 mg PO DAILY 06/04/16 [History] Atorvastatin Calcium [Lipitor] 20 mg PO HS 06/04/16 [History] Cholecalciferol (D-3) [Vitamin D] 2,000 unit PO DAILY 06/04/16 [History] Cyclobenzaprine HCl 2.5 - 5 mg PO TID PRN 06/04/16 [History] FLUoxetine HCl [Fluoxetine HCl] 40 mg PO DAILY 06/04/16 [History] Ferrous Sulfate [Iron] 325 mg PO BID 06/04/16 [History] Gabapentin [Neurontin] 300 mg PO TID 06/04/16 [History] Glimepiride [Amaryl] 3 mg PO BID 06/04/16 [History] Loratadine [Allergy Relief] 10 mg PO DAILY 06/04/16 [History] Magnesium Oxide [Magnesium] 400 mg PO BID 06/04/16 [History] Pantoprazole Sodium [Protonix] 40 mg PO DAILY 06/04/16 [History] raNITIdine HCl [Zantac] 150 mg PO BID 06/04/16 [History] Amitriptyline [Elavil] 25 mg PO HS 01/13/17 [History] Calcium Carbonate/Vitamin D3 [Calcium 600-Vit D3 200 Tablet] 1 tab PO BID [History] SitaGLIPtin [Januvia] 100 mg PO DAILY 08/14/17 [History] HYDROcodone/Acet 7.5/325 mg [[place] 7.5-325 mg] 1 tab PO Q6HR PRN 5 Days #20 tablet 08/19/17 [Rx] Ondansetron Oral Soln [Zofran Oral Soln] 2 mg PO Q6-8H PRN 10 Days #40 oral.syg 08/19/17 [Rx] Vancomycin Oral Soln [Firvanq] 125 mg PO QID 8 Days #32 unit 08/19/17 [Rx] Allergies/Adverse Reactions: 3 Allergy/AdvReac Type Severity Reaction Status Date / Time clonidine Allergy Blister Verified 08/14/17 00:21 Date of admission: 08/14/17 04:58 Primary care physician: Nela Naylor DO - Constitutional Vitals: Temp Pulse Resp BP Pulse Ox 98.0 F 70 14 119/79 95 08/19/17 07:19 08/19/17 07:19 08/19/17 07:19 08/19/17 07:19 08/19/17 07:19 General appearance: Present: A&O X 3, no acute distress, answers questions appropriately Exam: General: Alert and oriented HEENT:EOM, pupils equal, round, and reactive. Cardiovascular:Normal S1 & S2, no murmurs or gallops. No JVD. Pulse regular. Lungs:Normal breath sounds, no wheezes or crackles. Abdomen:Soft, minimal RLQ tenderness, no rebound/guarding, bowel sounds present Extremities:No deformity, no edema or tenderness, no joint swelling. Neurological:Normal cognition and motor skills. Skin:Normal color, no rash, no lesions. Pulses:Carotid and radial pulses normal +2. Rest of the physical exam is non-contributory - Patient Status Disposition: Home, Self-Care Condition: Good Functional capacity at discharge: independent ambulation Overall status at discharge: patient is progressing back to baseline - Discharge Instructions Instructions: Clostridium Difficile Infection (DC) Follow Up With: Nela Naylor DO [Primary Care Provider] - - Diet and Activity Activity: resume usual activities as tolerated Diet: advance to your usual diet
== END 2017-08-19 11:13 | disposition home or self-care (01) | DRG 720 ==
LOC: 3NENU 00:02 → EMEROO 00:02 → SUATTDRO 04:58 → 3NENU 05:31 → 3BNU 08-18 11:56
PROVIDERS: ADMIT General Practice; ATTEND Internal Medicine

== ENCOUNTER 2018-03-13 00:25 | Inpatient (IN) ==
[2018-03-13] MEDS ORDERED: Ondansetron 4 MG/2 ML VIAL IVP ONE ×3 (02:12→17:27)
[2018-03-13] MEDS ORDERED: 0.9 % Sodium Chloride 1,000 ML IVC ONE ×2 (02:12→03:38)
[2018-03-13] MEDS ORDERED: Isovue-370 500 ML BOTTLE IVP ONE (02:15)
[2018-03-13 03:14] LABS: Bilirubin,Urine Negative (Negative); Blood,Urine Negative (Negative); Clarity,Urine Clear (Clear); Color,Urine Yellow (Yellow); Glucose,Urine (UA) >=1000 mg/dL (Normal); Ketones,Urine Negative (Negative); Leukocyte Esterase,Urine Small (Negative); Nitrite,Urine Negative (Negative); PH,Urine 5.5 pH Units (5.0-8.0); Protein,Urine Trace mg/dL (Neg-Trace); Specific Gravity,Urine 1.023 (1.010-1.025); Urobilinogen,Urine Normal (Normal)
[2018-03-13 03:16] LABS: Bacteria,Urine None Seen per hpf (None-Few); Squamous Epithelial Cell,Urine Many per lpf (None-Few)
[2018-03-13 03:27] LABS: Basophils % 0.4 %; Hematocrit 42.8 % (35.3-44.9); Hemoglobin 14.2 g/dL (11.5-15.4); Immature Granulocytes % 0.8 % (0-4); Lymphocytes # 0.3 K/mcL (0.6-4.6); Mean Corpuscular HGB Conc 33.2 g/dL (31.6-35.5); Mean Corpuscular Hemoglobin 30.2 pg (28.0-33.3); Mean Corpuscular Volume 91.1 fL (83.0-100.0); Mean Platelet Volume 11.2 fL (9.4-12.4); Monocytes # 0.4 K/mcL (0.0-1.3); Monocytes % 3.9 %; Neutrophils # 8.9 K/mcL (1.6-8.9); Platelet Count 170 K/mcL (140-400); Red Cell Distribution Width 13.2 % (11.5-14.5); Segmented Neutrophils % 91.9 %
[2018-03-13 03:27] LABS: Hyaline Casts,Urine Few per lpf (None-Few)
--- NOTE | 2018-03-13 03:28 | Emergency Department Note ---
Disposition Clinical Impression: Influenza A, Septic shock Disposition: Admitted As Inpatient Condition: Critical Referrals: NONE,PCP [Primary Care Provider] - Forms: ED Satisfaction Letter Time of Disposition: 05:52 General Adult HPI - General Chief complaint: ED Shortness of Breath/Dyspnea Stated complaint: N/V/D URI Time Seen by Provider: 03/13/18 01:23 Source: patient Limitations: no limitations Nursing Notes Reviewed: Yes Vital Signs Reviewed: Yes - History of Present Illness HPI Narrative: Patient is a 52-year-old female presenting with fever. Patient has history of diabetes mellitus type 2, chronic kidney disease stage III, hypertension and hyp erlipidemia. Patient states over the past and a half she has been having myalgias, fevers, cough and congestion. She states that approximately 1 month ago she was treated for a sinusitis with an antibiotic, she states she took this for 1 week, however symptoms are not resolved. She states approximately one week ago she was seen by a different physician and was told to have a ear infection, she was placed on a new antibiotic for 21 days. She is currently on this currently. Patient states she is also having nausea with vomiting and diarrhea, abdominal pain is located in the middle of her abdomen, described to be sharpshooting. Patient states she does have a history of diverticulitis and colitis is concerned this might be happening again. Patient denies any chest pain or shortness of breath. Pain Scale: 5 - Related Data Home Medications Medication Instructions Recorded Confirmed Albuterol Sulfate [Proair Hfa] 1 - 2 puff IH Q4-6H PRN 06/04/16 08/14/17 Aspirin [Ecotrin] 325 mg PO DAILY 06/04/16 08/14/17 Atorvastatin Calcium [Lipitor] 20 mg PO HS 06/04/16 08/14/17 Cholecalciferol (D-3) [Vitamin D] 2,000 unit PO DAILY 06/04/16 08/14/17 Cyclobenzaprine HCl 2.5 - 5 mg PO TID PRN 06/04/16 08/14/17 FLUoxetine HCl [Fluoxetine HCl] 40 mg PO DAILY 06/04/16 08/14/17 Ferrous Sulfate [Iron] 325 mg PO BID 06/04/16 08/14/17 Gabapentin [Neurontin] 300 mg PO TID 06/04/16 08/14/17 Glimepiride [Amaryl] 3 mg PO BID 06/04/16 08/14/17 Loratadine [Allergy Relief] 10 mg PO DAILY 06/04/16 08/14/17 Magnesium Oxide [Magnesium] 400 mg PO BID 06/04/16 08/14/17 Pantoprazole Sodium [Protonix] 40 mg PO DAILY 06/04/16 08/14/17 raNITIdine HCl [Zantac] 150 mg PO BID 06/04/16 08/14/17 Amitriptyline [Elavil] 25 mg PO HS 01/13/17 08/14/17 Calcium Carbonate/Vitamin D3 1 tab PO BID 08/14/17 08/14/17 [Calcium 600-Vit D3 200 Tablet] SitaGLIPtin [Januvia] 100 mg PO DAILY 08/14/17 08/14/17 Previous Rx's Medication Instructions Recorded HYDROcodone/Acet 7.5/325 mg [[place] 1 tab PO Q6HR PRN 5 Days #20 tablet 08/19/17 7.5-325 mg] Ondansetron Oral Soln [Zofran Oral 2 mg PO Q6-8H PRN 10 Days #40 08/19/17 Soln] oral.syg Vancomycin Oral Soln [Firvanq] 125 mg PO QID 8 Days #32 unit 08/19/17 Allergies Allergy/AdvReac Type Severity Reaction Status Date / Time clonidine Allergy Blister Verified 08/14/17 00:21 All systems ED: reviewed and negative except as stated. Review of Systems: As Per HPI Constitutional: Reports: fever, chills Eyes: Denies: eye pain, eye discharge, vision change ENT ED: Reports: congestion Cardiovascular: Denies: chest pain, palpitations, syncope Respiratory: Reports: cough, sputum production. Denies: dyspnea, wheezes Gastrointestinal: Reports: abdominal pain, nausea, vomiting, diarrhea. Denies: constipation, hematemesis, melena, hematochezia Genitourinary: Denies: urgency, dysuria, frequency Musculoskeletal: Denies: back pain Integumentary: Denies: rash Neurological: Denies: headache, weakness, numbness Endocrine: Reports: fatigue Past Medical History - Past Medical History Attestation: Yes The following information was validated with the patient. Source: patient Medical history: Reports: arthritis, diabetes, GERD, hyperlipidemia, hypertension, renal disease Surgical history: Reports: appendectomy, , cholecystectomy Psychiatric history: Reports: anxiety - Social History Smoking Status: Never smoker Smokeless Tobacco Status: No Alcohol use: Reports: none Drug use: Reports: none Physical Exam - General Limitations: no limitations General appearance: alert, in no apparent distress, other (Appears ill- appearing) - Head Head exam: atraumatic, normocephalic, normal inspection - Eye Eye exam: Present: normal appearance, PERRL, EOMI - ENT ENT exam: normal oropharynx, mucous membranes dry - Neck Neck exam: Present: normal inspection, full ROM, trachea midline, tenderness (Throughout the lateral aspect of both sides of her neck, no cervical spine tenderness) - Chest Chest inspection: Present: normal inspection, symmetric chest wall rise - Respiratory Respiratory exam: Present: normal lung sounds bilaterally - Cardiovascular Cardiovascular exam: Present: normal rhythm, tachycardia - Abdominal Exam Abdominal exam: Present: soft, tenderness (Patient has diffuse abdominal tenderness throughout, no guarding or rebound). Absent: distention, guarding, rebound, rigidity - Extremities Exam Extremities exam: Present: normal inspection, full ROM, normal capillary refill. Absent: tenderness, pedal edema - Back Exam Back exam: Present: normal inspection, full ROM. Absent: tenderness - Neurological Exam Neurological exam: Present: alert, oriented X3 - Psychiatric Psychiatric exam: Present: normal affect, normal mood - Skin Skin exam: Present: warm, dry, intact, normal color. Absent: rash Course Vital Signs Temperature 97.4 F L 03/13/18 00:44 Pulse Rate 125 03/13/18 00:44 Respiratory Rate 14 03/13/18 00:44 Blood Pressure 191/167 03/13/18 00:44 O2 Sat by Pulse Oximetry 94 03/13/18 00:44 Temperature 101.1 F H 03/13/18 05:55 Pulse Rate 105 03/13/18 05:53 Respiratory Rate 18 03/13/18 05:53 Blood Pressure 104/83 03/13/18 05:53 O2 Sat by Pulse Oximetry 93 03/13/18 05:53 Oxygen Delivery Oxygen Delivery Room Air Procedures - Central Line Placement Right IJ Central Line Inserted*: Yes Central Line Catheter Replacement*: No Central Line Insertion: emergent Consent Obtained: verbal consent, written consent Procedural Pause: verify patient name and date of , timeout performed per policy, tyrell and assess the site, assemble equipment and verify supplies, perform hand hygiene Patient Placed on Monitor/Pulse Ox: Yes During the Procedure: clinician is wearing sterile gloves, cap, mask,& gown during insertion, sterile field and sterile technique are maintained, patient's face is covered with drape or mask and wearing a cap, everyone in room is wearing a mask Central Line Prep: Povidone-Iodine 1% Prep the Procedure Site: apply chloraprep to the skin using a back and forth scrubbing motion, apply chloraprep for 30 seconds (upper body), 1-2 min (femoral sites), drape the patient with a full body drape Local Anesthetic: lidocaine 1% Amount of anesthesia used (mL): 2 (ml) Ultrasound Used for Placement: Yes Central Line Lumen Inserted: triple Post Procedure: sutured in place, good blood return, all ports aspirated, flushed, capped, sterile dressing applied, guide wire removed and visualized Post Procedure X-Ray: tip of catheter in good position, no pneumothorax seen Patient Tolerated Procedure: well, no complications Complications: none Name of Clinician Inserting Central Line: Dr. Madison Clinician Assisting/Completing Checklist: Esther HUTCHINSON Date: 03/13/18 Time: 07:26 Medical Decision Making - [facility] Narrative Medical decision making narrative: Patient is a 52-year-old female presenting with fever. Patient has had myalgias, fever with cough and congestion for the past and half. Recently diagnosed with sinusitis and ear infection. Currently on antibiotics for this. Unknown medication at this point in time. On examination, patient is febrile with temperature 101.6, she was given 1 g of Tylenol. Patient also appears unwell, she is tachycardic in the 120s on arrival, she is also hypotensive with a blood pressure of 90 systolic. Patient was started on 1 L of fluids. Patient was found to be positive for influenza a, did discuss Tamiflu, she would like to start this at this point. Following the 1 L fluid, patient's blood pressure has not changed, we will continue with the second liter of fluids. She was also given Zofran for nausea. CBC does not reveal a leukocytosis, hemoglobin appear s stable at this point in time, on BMP there is elevated serum creatinine with acute kidney injury at 1.8, patient also appears to be slightly hyponatremic at 1:30, hepatic, liver and lipase are within normal limits. Urinalysis shows no sign of infection. On reevaluation, patient continues to be slightly tachycardic in the 110s, she continues to feel unwell, blood pressure at this point in time remains 90 systolic, at this point she is to severe sepsis trending towards shock as she is not responsive to fluids. Will give another 500 mL bolus to meet 30 mL/kg. At this point in time, feels though the patient will need to have a central line placed as she continues to be refractory to fluid management, she was also given Motrin. Patient is not as tachycardic she is 110 on reexamination with 85 systolic blood pressure. Map of 64. I did discuss this with the patient, she agrees to central line placement with admission. At this point in time consent will be obtained, and central line will be placed. She will then be started on pressors. Patient will be admitted at this point. - Medical Records Medical records reviewed: Yes I reviewed the patient's medical records. - Lab Data Lab results reviewed: Yes I reviewed the patient's lab results. Result diagrams: 03/13/18 03:13 03/13/18 03:13 Lab Results 03/13/18 03/13/18 03/13/18 Range/Units 03:05 03:13 03:13 WBC 9.6 (4.3-11.1) K/mcL RBC 4.70 (3.82-4.97) M/mcL Hgb 14.2 (11.5-15.4) g/dL Hct 42.8 (35.3-44.9) % MCV 91.1 (83.0-100.0) fL MCH 30.2 (28.0-33.3) pg MCHC 33.2 (31.6-35.5) g/dL RDW 13.2 (11.5-14.5) % Plt Count 170 (140-400) K/mcL MPV 11.2 (9.4-12.4) fL Immature Gran % 0.8 (0-4) % Seg Neutrophils % 91.9 % Lymphocytes % 3.0 % Monocytes % 3.9 % Eosinophils % 0.0 % Basophils % 0.4 % Neutrophils # 8.9 (1.6-8.9) K/mcL Lymphocytes # 0.3 L (0.6-4.6) K/mcL Monocytes # 0.4 (0.0-1.3) K/mcL Eosinophils # 0.0 (0.0-0.6) K/mcL Basophils # 0.0 (0.0-0.2) K/mcL Sodium 130 L (136-145) mEq/L Potassium 3.5 (3.5-5.1) mEq/L Chloride 100 (98-107) mEq/L Carbon Dioxide 21 L (23-29) mEq/L BUN 31 H (6-20) mg/dL Creatinine 1.80 H (0.60-1.20) mg/dL Est GFR ( Amer) 36 L (> 60) Est GFR (Non-Af Amer) 29 L (> 60) BUN/Creatinine Ratio 17 (6-26) Glucose 291 H (70-105) mg/dL Calculated Osmolality 287 (280-300) Lactic Acid (0.5-2.2) mmol/L Calcium 8.2 L (8.6-10.3) mg/dL Total Bilirubin 0.2 L (0.3-1.0) mg/dL Direct Bilirubin 0.0 (0.0-0.2) mg/dL Indirect Bilirubin 0.2 (0.0-1.2) mg/dL AST 26 (13-39) Units/L ALT 28 (7-52) Units/L Alkaline Phosphatase 59 (34-104) Units/L Troponin I (< 0.04) ng/mL Serum Total Protein 6.2 L (6.4-8.9) g/dL Albumin 3.7 (3.5-5.7) g/dL Globulin 2.5 (2.4-3.5) g/dL Albumin/Globulin Ratio 1.5 (1.1-2.2) Lipase 22 (11-82) Units/L Urine Color Yellow (Yellow) Urine Clarity Clear (Clear) Urine pH 5.5 (5.0-8.0) pH Units Ur Specific [place] 1.023 (1.010-1.025) Urine Protein Trace (Neg-Trace) mg/dL Urine Glucose (UA) >=1000 H (Normal) mg/dL Urine Ketones Negative (Negative) mg/dL Urine Blood Negative (Negative) Urine Nitrite Negative (Negative) Urine Bilirubin Negative (Negative) Urine Urobilinogen Normal (Normal) mg/dL Ur Leukocyte Esterase Small H (Negative) Urine Microscopic RBC 5-15 H (0-3) per hpf Urine Microscopic WBC 5-15 H (0-3) per hpf Ur Squamous Epith Cells Many H (None-Few) per lpf Urine Bacteria None Seen (None-Few) per hpf Hyaline Casts Few (None-Few) per lpf Ur Culture Indicated? NO. A (NO) 03/13/18 03/13/18 Range/Units 03:13 03:13 WBC (4.3-11.1) K/mcL RBC (3.82-4.97) M/mcL Hgb (11.5-15.4) g/dL Hct (35.3-44.9) % MCV (83.0-100.0) fL MCH (28.0-33.3) pg MCHC (31.6-35.5) g/dL RDW (11.5-14.5) % Plt Count (140-400) K/mcL MPV (9.4-12.4) fL Immature Gran % (0-4) % Seg Neutrophils % % Lymphocytes % % Monocytes % % Eosinophils % % Basophils % % Neutrophils # (1.6-8.9) K/mcL Lymphocytes # (0.6-4.6) K/mcL Monocytes # (0.0-1.3) K/mcL Eosinophils # (0.0-0.6) K/mcL Basophils # (0.0-0.2) K/mcL Sodium (136-145) mEq/L Potassium (3.5-5.1) mEq/L Chloride (98-107) mEq/L Carbon Dioxide (23-29) mEq/L BUN (6-20) mg/dL Creatinine (0.60-1.20) mg/dL Est GFR ( Amer) (> 60) Est GFR (Non-Af Amer) (> 60) BUN/Creatinine Ratio (6-26) Glucose (70-105) mg/dL Calculated Osmolality (280-300) Lactic Acid 2.3 H (0.5-2.2) mmol/L Calcium (8.6-10.3) mg/dL Total Bilirubin (0.3-1.0) mg/dL Direct Bilirubin (0.0-0.2) mg/dL Indirect Bilirubin (0.0-1.2) mg/dL AST (13-39) Units/L ALT (7-52) Units/L Alkaline Phosphatase (34-104) Units/L Troponin I < 0.03 (< 0.04) ng/mL Serum Total Protein (6.4-8.9) g/dL Albumin (3.5-5.7) g/dL Globulin (2.4-3.5) g/dL Albumin/Globulin Ratio (1.1-2.2) Lipase (11-82) Units/L Urine Color (Yellow) Urine Clarity (Clear) Urine pH (5.0-8.0) pH Units Ur Specific [place] (1.010-1.025) Urine Protein (Neg-Trace) mg/dL Urine Glucose (UA) (Normal) mg/dL Urine Ketones (Negative) mg/dL Urine Blood (Negative) Urine Nitrite (Negative) Urine Bilirubin (Negative) Urine Urobilinogen (Normal) mg/dL Ur Leukocyte Esterase (Negative) Urine Microscopic RBC (0-3) per hpf Urine Microscopic WBC (0-3) per hpf Ur Squamous Epith Cells (None-Few) per lpf Urine Bacteria (None-Few) per hpf Hyaline Casts (None-Few) per lpf Ur Culture Indicated? (NO) - Radiology Data Radiology results reviewed: Yes I reviewed the patient's radiology results. Abdomen/Pelvis CT 03/13/18 02:15 IMPRESSION: 1. No acute noncontrast findings in the abdomen or pelvis. 2. Diverticulosis without evidence acute diverticulitis. 3. Hepatic steatosis and hepatomegaly. D/ / Desiree Mireles MD / Desiree Mireles MD Interpreting Provider: Desiree Mireles MD Chest X-Ray 03/13/18 02:15 IMPRESSION: No acute cardiopulmonary findings. D/ / Joel Curtis / Joel Curtis Interpreting Provider: Joel Curtis - EKG Data EKG #1 EKG attestation: Yes I reviewed and interpreted this EKG. EKG results narrative: EKG performed at 136 ventricular rate of 123, regular rhythm, normal axis, no ST segment elevation, no depression or T-wave changes. Intervals show prolonged QT at 525. S.B.A.R. - Tawana Situation: Demographics, MOA Background: Presenting Complaint, Relevant PMH, Meds, & Allergies Assessment: Vital Signs, Course and respsone to treatment, Exam Concerns, Patient/Family Expectation, Pertinant Lab Results, Outstanding Labs Recommendation: Barrier(s) to disposition, Recommendation based on pending studies, treatments, or consults Tawana Report Given to: hospitalist Tawana Repor Time: 06:11 (accepted)
[2018-03-13 03:44] LABS: Albumin 3.7 g/dL (3.5-5.7); Albumin/Globulin Ratio 1.5 (1.1-2.2); Bilirubin,Indirect 0.2 mg/dL (0.0-1.2); Bilirubin,Total 0.2 mg/dL (0.3-1.0); Calcium 8.2 mg/dL (8.6-10.3); Globulin 2.5 g/dL (2.4-3.5); Potassium 3.5 mEq/L (3.5-5.1); Total Protein 6.2 g/dL (6.4-8.9)
[2018-03-13] MEDS ORDERED: Ibuprofen 600 MG TABLET PO ONE (04:26)
[2018-03-13] MEDS ORDERED: 0.9 % Sodium Chloride 500 ML IVC ONE (05:06)
[2018-03-13] MEDS ORDERED: Norepinephrine 4 MG in D5% in Water 250 ML IVC SCH ×2 (06:00→17:15)
[2018-03-13] MEDS ORDERED: Piperacillin/Tazobactam 3.375 GM in 0.9 % Sodium Chloride Mini Bag 100 ML IVPB ONE (06:09)
[2018-03-13] MEDS ORDERED: 0.9 % Sodium Chloride 500 ML ONE (07:19)
--- NOTE | 2018-03-13 07:33 | Emergency Department Note ---
Disposition Clinical Impression: Influenza A, Septic shock Disposition: Admitted As Inpatient Condition: Critical Referrals: NONE,PCP [Primary Care Provider] - Forms: ED Satisfaction Letter General Adult HPI - General Chief complaint: ED Shortness of Breath/Dyspnea Stated complaint: N/V/D URI Time Seen by Provider: 03/13/18 01:23 Source: patient Limitations: no limitations Nursing Notes Reviewed: Yes Vital Signs Reviewed: Yes - History of Present Illness Pain Scale: 5 - Related Data Home Medications Medication Instructions Recorded Confirmed Albuterol Sulfate [Proair Hfa] 1 - 2 puff IH Q4-6H PRN 06/04/16 08/14/17 Aspirin [Ecotrin] 325 mg PO DAILY 06/04/16 08/14/17 Atorvastatin Calcium [Lipitor] 20 mg PO HS 06/04/16 08/14/17 Cholecalciferol (D-3) [Vitamin D] 2,000 unit PO DAILY 06/04/16 08/14/17 Cyclobenzaprine HCl 2.5 - 5 mg PO TID PRN 06/04/16 08/14/17 FLUoxetine HCl [Fluoxetine HCl] 40 mg PO DAILY 06/04/16 08/14/17 Ferrous Sulfate [Iron] 325 mg PO BID 06/04/16 08/14/17 Gabapentin [Neurontin] 300 mg PO TID 06/04/16 08/14/17 Glimepiride [Amaryl] 3 mg PO BID 06/04/16 08/14/17 Loratadine [Allergy Relief] 10 mg PO DAILY 06/04/16 08/14/17 Magnesium Oxide [Magnesium] 400 mg PO BID 06/04/16 08/14/17 Pantoprazole Sodium [Protonix] 40 mg PO DAILY 06/04/16 08/14/17 raNITIdine HCl [Zantac] 150 mg PO BID 06/04/16 08/14/17 Amitriptyline [Elavil] 25 mg PO HS 01/13/17 08/14/17 Calcium Carbonate/Vitamin D3 1 tab PO BID 08/14/17 08/14/17 [Calcium 600-Vit D3 200 Tablet] SitaGLIPtin [Januvia] 100 mg PO DAILY 08/14/17 08/14/17 Previous Rx's Medication Instructions Recorded HYDROcodone/Acet 7.5/325 mg [[place] 1 tab PO Q6HR PRN 5 Days #20 tablet 08/19/17 7.5-325 mg] Ondansetron Oral Soln [Zofran Oral 2 mg PO Q6-8H PRN 10 Days #40 08/19/17 Soln] oral.syg Vancomycin Oral Soln [Firvanq] 125 mg PO QID 8 Days #32 unit 08/19/17 Allergies Allergy/AdvReac Type Severity Reaction Status Date / Time clonidine Allergy Blister Verified 08/14/17 00:21 Constitutional: Reports: fever, chills Eyes: Denies: eye pain, eye discharge, vision change ENT ED: Reports: congestion Cardiovascular: Denies: chest pain, palpitations, syncope Respiratory: Reports: cough, sputum production. Denies: dyspnea, wheezes Gastrointestinal: Reports: abdominal pain, nausea, vomiting, diarrhea. Denies: constipation, hematemesis, melena, hematochezia Genitourinary: Denies: urgency, dysuria, frequency Musculoskeletal: Denies: back pain Integumentary: Denies: rash Neurological: Denies: headache, weakness, numbness Endocrine: Reports: fatigue Past Medical History - Past Medical History Medical history: Reports: arthritis, diabetes, GERD, hyperlipidemia, hypertension, renal disease Surgical history: Reports: appendectomy, , cholecystectomy Psychiatric history: Reports: anxiety - Social History Smoking Status: Never smoker Smokeless Tobacco Status: No Alcohol use: Reports: none Drug use: Reports: none Physical Exam - General Limitations: no limitations General appearance: alert, in no apparent distress, other (Appears ill- appearing) Course Vital Signs Temperature 97.4 F L 03/13/18 00:44 Pulse Rate 125 03/13/18 00:44 Respiratory Rate 14 03/13/18 00:44 Blood Pressure 191/167 03/13/18 00:44 O2 Sat by Pulse Oximetry 94 03/13/18 00:44 Temperature 101.1 F H 03/13/18 05:55 Pulse Rate 96 03/13/18 07:15 Respiratory Rate 16 03/13/18 07:15 Blood Pressure 80/52 03/13/18 07:15 O2 Sat by Pulse Oximetry 96 03/13/18 07:15 Oxygen Delivery Oxygen Delivery Room Air Medical Decision Making - Medical Records Medical records reviewed: Yes I reviewed the patient's medical records. - Lab Data Lab results reviewed: Yes I reviewed the patient's lab results. Result diagrams: 03/13/18 03:13 03/13/18 03:13 Lab Results 03/13/18 03/13/18 03/13/18 Range/Units 03:05 03:13 03:13 WBC 9.6 (4.3-11.1) K/mcL RBC 4.70 (3.82-4.97) M/mcL Hgb 14.2 (11.5-15.4) g/dL Hct 42.8 (35.3-44.9) % MCV 91.1 (83.0-100.0) fL MCH 30.2 (28.0-33.3) pg MCHC 33.2 (31.6-35.5) g/dL RDW 13.2 (11.5-14.5) % Plt Count 170 (140-400) K/mcL MPV 11.2 (9.4-12.4) fL Immature Gran % 0.8 (0-4) % Seg Neutrophils % 91.9 % Lymphocytes % 3.0 % Monocytes % 3.9 % Eosinophils % 0.0 % Basophils % 0.4 % Neutrophils # 8.9 (1.6-8.9) K/mcL Lymphocytes # 0.3 L (0.6-4.6) K/mcL Monocytes # 0.4 (0.0-1.3) K/mcL Eosinophils # 0.0 (0.0-0.6) K/mcL Basophils # 0.0 (0.0-0.2) K/mcL Sodium 130 L (136-145) mEq/L Potassium 3.5 (3.5-5.1) mEq/L Chloride 100 (98-107) mEq/L Carbon Dioxide 21 L (23-29) mEq/L BUN 31 H (6-20) mg/dL Creatinine 1.80 H (0.60-1.20) mg/dL Est GFR ( Amer) 36 L (> 60) Est GFR (Non-Af Amer) 29 L (> 60) BUN/Creatinine Ratio 17 (6-26) Glucose 291 H (70-105) mg/dL Calculated Osmolality 287 (280-300) Lactic Acid (0.5-2.2) mmol/L Calcium 8.2 L (8.6-10.3) mg/dL Total Bilirubin 0.2 L (0.3-1.0) mg/dL Direct Bilirubin 0.0 (0.0-0.2) mg/dL Indirect Bilirubin 0.2 (0.0-1.2) mg/dL AST 26 (13-39) Units/L ALT 28 (7-52) Units/L Alkaline Phosphatase 59 (34-104) Units/L Troponin I (< 0.04) ng/mL Serum Total Protein 6.2 L (6.4-8.9) g/dL Albumin 3.7 (3.5-5.7) g/dL Globulin 2.5 (2.4-3.5) g/dL Albumin/Globulin Ratio 1.5 (1.1-2.2) Lipase 22 (11-82) Units/L Urine Color Yellow (Yellow) Urine Clarity Clear (Clear) Urine pH 5.5 (5.0-8.0) pH Units Ur Specific [place] 1.023 (1.010-1.025) Urine Protein Trace (Neg-Trace) mg/dL Urine Glucose (UA) >=1000 H (Normal) mg/dL Urine Ketones Negative (Negative) mg/dL Urine Blood Negative (Negative) Urine Nitrite Negative (Negative) Urine Bilirubin Negative (Negative) Urine Urobilinogen Normal (Normal) mg/dL Ur Leukocyte Esterase Small H (Negative) Urine Microscopic RBC 5-15 H (0-3) per hpf Urine Microscopic WBC 5-15 H (0-3) per hpf Ur Squamous Epith Cells Many H (None-Few) per lpf Urine Bacteria None Seen (None-Few) per hpf Hyaline Casts Few (None-Few) per lpf Ur Culture Indicated? NO. A (NO) 03/13/18 03/13/18 Range/Units 03:13 03:13 WBC (4.3-11.1) K/mcL RBC (3.82-4.97) M/mcL Hgb (11.5-15.4) g/dL Hct (35.3-44.9) % MCV (83.0-100.0) fL MCH (28.0-33.3) pg MCHC (31.6-35.5) g/dL RDW (11.5-14.5) % Plt Count (140-400) K/mcL MPV (9.4-12.4) fL Immature Gran % (0-4) % Seg Neutrophils % % Lymphocytes % % Monocytes % % Eosinophils % % Basophils % % Neutrophils # (1.6-8.9) K/mcL Lymphocytes # (0.6-4.6) K/mcL Monocytes # (0.0-1.3) K/mcL Eosinophils # (0.0-0.6) K/mcL Basophils # (0.0-0.2) K/mcL Sodium (136-145) mEq/L Potassium (3.5-5.1) mEq/L Chloride (98-107) mEq/L Carbon Dioxide (23-29) mEq/L BUN (6-20) mg/dL Creatinine (0.60-1.20) mg/dL Est GFR ( Amer) (> 60) Est GFR (Non-Af Amer) (> 60) BUN/Creatinine Ratio (6-26) Glucose (70-105) mg/dL Calculated Osmolality (280-300) Lactic Acid 2.3 H (0.5-2.2) mmol/L Calcium (8.6-10.3) mg/dL Total Bilirubin (0.3-1.0) mg/dL Direct Bilirubin (0.0-0.2) mg/dL Indirect Bilirubin (0.0-1.2) mg/dL AST (13-39) Units/L ALT (7-52) Units/L Alkaline Phosphatase (34-104) Units/L Troponin I < 0.03 (< 0.04) ng/mL Serum Total Protein (6.4-8.9) g/dL Albumin (3.5-5.7) g/dL Globulin (2.4-3.5) g/dL Albumin/Globulin Ratio (1.1-2.2) Lipase (11-82) Units/L Urine Color (Yellow) Urine Clarity (Clear) Urine pH (5.0-8.0) pH Units Ur Specific [place] (1.010-1.025) Urine Protein (Neg-Trace) mg/dL Urine Glucose (UA) (Normal) mg/dL Urine Ketones (Negative) mg/dL Urine Blood (Negative) Urine Nitrite (Negative) Urine Bilirubin (Negative) Urine Urobilinogen (Normal) mg/dL Ur Leukocyte Esterase (Negative) Urine Microscopic RBC (0-3) per hpf Urine Microscopic WBC (0-3) per hpf Ur Squamous Epith Cells (None-Few) per lpf Urine Bacteria (None-Few) per hpf Hyaline Casts (None-Few) per lpf Ur Culture Indicated? (NO) Positive for influenza type A. - Radiology Data Radiology results reviewed: Yes I reviewed the patient's radiology results. Abdomen/Pelvis CT 03/13/18 02:15 IMPRESSION: 1. No acute noncontrast findings in the abdomen or pelvis. 2. Diverticulosis without evidence acute diverticulitis. 3. Hepatic steatosis and hepatomegaly. D/ / Desiree Mireles MD / Desiree Mireles MD Interpreting Provider: Desiree Mireles MD Chest X-Ray 03/13/18 07:08 IMPRESSION: Right IJ catheter with tip projecting in the region of the mid to lower SVC. D/ / Teressa Benavidez MD / Teressa Benavidez MD Interpreting Provider: Teressa Benavidez MD - EKG Data EKG #1 EKG attestation: Yes I reviewed and interpreted this EKG. EKG results narrative: EKG shows sinus tachycardia with ventricular rate of 123. Low voltage precordial leads. No ST segment elevation or depression. No ectopy. Critical Care Time Critical Care Time: Yes Total Critical Care Time: 60 Attestation: Critical care performed: Time is exclusive of separately billable procedures. Time includes: direct patient care, patient reassessment, coordination of patient care, interpretation of data (laboratory data, radiology data, and respiratory data), review of patient's medical records, medical consultation and documentation of patient care. Procedures included in critical care time: Procedures excluded from critical care time: Right IJ central line placement. Attestation Statement - Attestation Attestation: I, Alejandro Valle MD, personally evaluated this patient and discussed their management with the resident physician. I reviewed the resident's note and agree with the documented findings, medical decision making, and plan of care. 52-year-old female presented to the emergency department with a complaint of flulike symptoms for about 36 hours prior to arrival. She complains of chills and fever with generalized body aches. Cough and some shortness of breath. Headache. There has been some nausea and vomiting as well as diarrhea On examination patient is a well-developed well-nourished female in no acute distress. She is alert and oriented 3. There is no cyanosis or diaphoresis. Mucous membranes are slightly dry. Neck is supple with no meningismus. Breath sounds are clear and equal bilaterally. Heart regular with a moderate tac hycardia. Abdomen is soft and nontender with decreased bowel sounds. No guarding or rebound tenderness. No tympany or distention. Labs reviewed. Chest x-ray negative. EKG shows sinus tachycardia. Patient met severe sepsis criteria. After receiving 2.5 L of IV fluids patient remained hypotensive and meets septic shock criteria. A right IJ central line was placed by Dr. Madison under my direct supervision. I was present for the entire procedure. IV vancomycin and Zosyn was ordered. Patient started on Levophed infusion for her hypotension. The hospitalist, Dr. Moreira, was consulted and accepted admission of the patient. There are currently no ICU beds available and patient will be held here in the emergency department until a bed opens up later this morning. Patient is signed out to the dayshift team, Dr. Harp and Dr. Tiara Guadarrama, for continued care while the patient is in the emergency department. Sepsis Reassessment Note - Evaluation Sepsis Screen: Sepsis Risk Current Stage of Sepsis: septic shock Possible Source of Sepsis: pulmonary - Focused Exam Date of Encounter: 03/13/18 Time of Encounter: 07:00 Vital Signs: Vital Signs Temp Pulse Resp BP Pulse Ox 03/13/18 07:15 96 16 80/52 96 03/13/18 07:10 96 17 90/51 96 03/13/18 07:05 99 18 89/50 96 03/13/18 07:00 96 17 91/53 96 03/13/18 06:55 106 20 83/49 97 03/13/18 06:50 95 18 85/49 94 03/13/18 06:45 96 20 79/55 93 03/13/18 06:40 96 17 86/52 93 03/13/18 06:20 83/54 03/13/18 05:55 101.1 F H 03/13/18 05:53 105 18 104/83 93 03/13/18 05:34 98 23 82/52 93 03/13/18 04:47 102 17 89/59 94 03/13/18 04:22 101.8 F H 100 16 91/59 94 03/13/18 03:15 115 18 92/55 96 03/13/18 02:00 123 14 95/58 98 03/13/18 01:51 100 03/13/18 01:39 101.9 F H 123 21 94/64 93 03/13/18 00:44 97.4 F L 125 14 191/167 94 Respiratory Exam: Present: CTA bilaterally Cardiovascular Exam: Present: RRR Capillary Refill: < 2 seconds Peripheral Pulse Strength: 2+ slightly diminished Peripheral Pulse Location: Radial Skin Exam: unremarkable
[2018-03-13] MEDS ORDERED: Aminoglycoside Consult 1 EACH MC ONE (07:50)
--- NOTE | 2018-03-13 08:18 | Emergency Department Note ---
Disposition Clinical Impression: Influenza A, Septic shock Disposition: Admitted As Inpatient Condition: Good Time of Disposition: 08:17 General Adult HPI - General Chief complaint: ED Shortness of Breath/Dyspnea Stated complaint: N/V/D URI Time Seen by Provider: 03/13/18 01:23 Source: patient Limitations: no limitations - History of Present Illness Pain Scale: 0 - Related Data Home Medications Medication Instructions Recorded Confirmed RX: Albuterol Sulfate [Proair Hfa] 1 - 2 puff IH Q4-6H PRN 06/04/16 03/14/18 RX: Aspirin [Ecotrin] 325 mg PO DAILY 06/04/16 03/14/18 RX: Cholecalciferol (D-3) [Vitamin 2,000 unit PO DAILY 06/04/16 03/14/18 D] RX: Cyclobenzaprine HCl 2.5 - 5 mg PO TID PRN 06/04/16 03/14/18 RX: FLUoxetine HCl [Fluoxetine HCl] 40 mg PO DAILY 06/04/16 03/14/18 RX: Ferrous Sulfate [Iron] 325 mg PO BID 06/04/16 03/14/18 RX: Gabapentin [Neurontin] 300 mg PO TID 06/04/16 03/14/18 RX: Glimepiride [Amaryl] 4 mg PO BID 06/04/16 03/14/18 RX: Loratadine [Allergy Relief] 10 mg PO DAILY 06/04/16 03/14/18 RX: Magnesium Oxide [Magnesium] 400 mg PO BID 06/04/16 03/14/18 RX: Pantoprazole Sodium [Protonix] 40 mg PO DAILY 06/04/16 03/14/18 RX: Amitriptyline [Elavil] 25 mg PO HS 01/13/17 03/14/18 RX: Calcium Carbonate/Vitamin D3 1 tab PO BID 08/14/17 03/14/18 [Calcium 600-Vit D3 200 Tablet] RX: SitaGLIPtin [Januvia] 100 mg PO DAILY 08/14/17 03/14/18 RX: Canagliflozin [Invokana] 100 mg PO DAILY 03/14/18 03/14/18 RX: Ciprofloxacin/Hydrocortisone 1 drop OT AD 03/14/18 03/14/18 [Cipro Hc Otic Suspension] RX: Fluticasone Propionate Nasal 50 mcg NS DAILY 03/14/18 03/14/18 [Flonase] RX: Furosemide [Lasix] 20 mg PO DAILY 03/14/18 03/14/18 RX: Lisinopril-HCTZ 20-12.5 1 each PO DAILY 03/14/18 03/14/18 [Prinzide 20-12.5] RX: Sennosides/Docusate Sodium 1 each PO BID 03/14/18 03/14/18 [Senna Plus] RX: Spironolactone [Aldactone] 50 mg PO DAILY 03/14/18 03/14/18 RX: amLODIPine [Norvasc] 10 mg PO DAILY 03/14/18 03/14/18 Previous Rx's Medication Instructions Recorded RX: Oseltamivir Phosphate [Tamiflu] 30 mg PO BID 1 Days #2 capsule 03/16/18 RX: PredniSONE [Deltasone] 20 mg PO BID #7 tablet 03/16/18 Allergies Allergy/AdvReac Type Severity Reaction Status Date / Time clonidine Allergy Blister Verified 08/14/17 00:21 Constitutional: Reports: fever, chills Eyes: Denies: eye pain, eye discharge, vision change ENT ED: Reports: congestion Cardiovascular: Denies: chest pain, palpitations, syncope Respiratory: Reports: cough, sputum production. Denies: dyspnea, wheezes Gastrointestinal: Reports: abdominal pain, nausea, vomiting, diarrhea. Denies: constipation, hematemesis, melena, hematochezia Genitourinary: Denies: urgency, dysuria, frequency Musculoskeletal: Denies: back pain Integumentary: Denies: rash Neurological: Denies: headache, weakness, numbness Endocrine: Reports: fatigue Past Medical History - Past Medical History Medical history: Reports: arthritis, diabetes, GERD, hyperlipidemia, hypertension, renal disease Surgical history: Reports: appendectomy, , cholecystectomy Psychiatric history: Reports: anxiety - Social History Smoking Status: Never smoker Smokeless Tobacco Status: No Alcohol use: Reports: none Drug use: Reports: none Physical Exam - General Limitations: no limitations General appearance: alert, in no apparent distress, other (Appears ill- appearing) Course Vital Signs Temperature 97.4 F L 03/13/18 00:44 Pulse Rate 125 03/13/18 00:44 Respiratory Rate 14 03/13/18 00:44 Blood Pressure 191/167 03/13/18 00:44 O2 Sat by Pulse Oximetry 94 03/13/18 00:44 Temperature 101.1 F H 03/13/18 05:55 Pulse Rate 88 03/13/18 08:00 Respiratory Rate 16 03/13/18 08:00 Blood Pressure 91/63 03/13/18 08:00 O2 Sat by Pulse Oximetry 96 03/13/18 08:00 Oxygen Delivery Oxygen Delivery Room Air Procedures - Arterial Line Consent Obtained: written consent Time Out Performed: Yes Size (Gauge): 20 Technique Used: guide wire technique Post-Procedure: line sutured into place, dry sterile dressing placed Patient Tolerated Procedure: well, no complications Complications: none Site: left Medical Decision Making - Lab Data Result diagrams: 03/16/18 05:53 03/16/18 05:53 Lab Results 03/13/18 03/13/18 03/13/18 Range/Units 03:05 03:13 03:13 WBC 9.6 (4.3-11.1) K/mcL RBC 4.70 (3.82-4.97) M/mcL Hgb 14.2 (11.5-15.4) g/dL Hct 42.8 (35.3-44.9) % MCV 91.1 (83.0-100.0) fL MCH 30.2 (28.0-33.3) pg MCHC 33.2 (31.6-35.5) g/dL RDW 13.2 (11.5-14.5) % Plt Count 170 (140-400) K/mcL MPV 11.2 (9.4-12.4) fL Immature Gran % 0.8 (0-4) % Seg Neutrophils % 91.9 % Lymphocytes % 3.0 % Monocytes % 3.9 % Eosinophils % 0.0 % Basophils % 0.4 % Neutrophils # 8.9 (1.6-8.9) K/mcL Lymphocytes # 0.3 L (0.6-4.6) K/mcL Monocytes # 0.4 (0.0-1.3) K/mcL Eosinophils # 0.0 (0.0-0.6) K/mcL Basophils # 0.0 (0.0-0.2) K/mcL Sodium 130 L (136-145) mEq/L Potassium 3.5 (3.5-5.1) mEq/L Chloride 100 (98-107) mEq/L Carbon Dioxide 21 L (23-29) mEq/L BUN 31 H (6-20) mg/dL Creatinine 1.80 H (0.60-1.20) mg/dL Est GFR ( Amer) 36 L (> 60) Est GFR (Non-Af Amer) 29 L (> 60) BUN/Creatinine Ratio 17 (6-26) Glucose 291 H (70-105) mg/dL Calculated Osmolality 287 (280-300) Lactic Acid (0.5-2.2) mmol/L Calcium 8.2 L (8.6-10.3) mg/dL Total Bilirubin 0.2 L (0.3-1.0) mg/dL Direct Bilirubin 0.0 (0.0-0.2) mg/dL Indirect Bilirubin 0.2 (0.0-1.2) mg/dL AST 26 (13-39) Units/L ALT 28 (7-52) Units/L Alkaline Phosphatase 59 (34-104) Units/L Troponin I (< 0.04) ng/mL Serum Total Protein 6.2 L (6.4-8.9) g/dL Albumin 3.7 (3.5-5.7) g/dL Globulin 2.5 (2.4-3.5) g/dL Albumin/Globulin Ratio 1.5 (1.1-2.2) Lipase 22 (11-82) Units/L Urine Color Yellow (Yellow) Urine Clarity Clear (Clear) Urine pH 5.5 (5.0-8.0) pH Units Ur Specific [place] 1.023 (1.010-1.025) Urine Protein Trace (Neg-Trace) mg/dL Urine Glucose (UA) >=1000 H (Normal) mg/dL Urine Ketones Negative (Negative) mg/dL Urine Blood Negative (Negative) Urine Nitrite Negative (Negative) Urine Bilirubin Negative (Negative) Urine Urobilinogen Normal (Normal) mg/dL Ur Leukocyte Esterase Small H (Negative) Urine Microscopic RBC 5-15 H (0-3) per hpf Urine Microscopic WBC 5-15 H (0-3) per hpf Ur Squamous Epith Cells Many H (None-Few) per lpf Urine Bacteria None Seen (None-Few) per hpf Hyaline Casts Few (None-Few) per lpf Ur Culture Indicated? NO. A (NO) 03/13/18 03/13/18 03/13/18 Range/Units 03:13 03:13 07:23 WBC (4.3-11.1) K/mcL RBC (3.82-4.97) M/mcL Hgb (11.5-15.4) g/dL Hct (35.3-44.9) % MCV (83.0-100.0) fL MCH (28.0-33.3) pg MCHC (31.6-35.5) g/dL RDW (11.5-14.5) % Plt Count (140-400) K/mcL MPV (9.4-12.4) fL Immature Gran % (0-4) % Seg Neutrophils % % Lymphocytes % % Monocytes % % Eosinophils % % Basophils % % Neutrophils # (1.6-8.9) K/mcL Lymphocytes # (0.6-4.6) K/mcL Monocytes # (0.0-1.3) K/mcL Eosinophils # (0.0-0.6) K/mcL Basophils # (0.0-0.2) K/mcL Sodium (136-145) mEq/L Potassium (3.5-5.1) mEq/L Chloride (98-107) mEq/L Carbon Dioxide (23-29) mEq/L BUN (6-20) mg/dL Creatinine (0.60-1.20) mg/dL Est GFR ( Amer) (> 60) Est GFR (Non-Af Amer) (> 60) BUN/Creatinine Ratio (6-26) Glucose (70-105) mg/dL Calculated Osmolality (280-300) Lactic Acid 2.3 H 0.8 (0.5-2.2) mmol/L Calcium (8.6-10.3) mg/dL Total Bilirubin (0.3-1.0) mg/dL Direct Bilirubin (0.0-0.2) mg/dL Indirect Bilirubin (0.0-1.2) mg/dL AST (13-39) Units/L ALT (7-52) Units/L Alkaline Phosphatase (34-104) Units/L Troponin I < 0.03 (< 0.04) ng/mL Serum Total Protein (6.4-8.9) g/dL Albumin (3.5-5.7) g/dL Globulin (2.4-3.5) g/dL Albumin/Globulin Ratio (1.1-2.2) Lipase (11-82) Units/L Urine Color (Yellow) Urine Clarity (Clear) Urine pH (5.0-8.0) pH Units Ur Specific [place] (1.010-1.025) Urine Protein (Neg-Trace) mg/dL Urine Glucose (UA) (Normal) mg/dL Urine Ketones (Negative) mg/dL Urine Blood (Negative) Urine Nitrite (Negative) Urine Bilirubin (Negative) Urine Urobilinogen (Normal) mg/dL Ur Leukocyte Esterase (Negative) Urine Microscopic RBC (0-3) per hpf Urine Microscopic WBC (0-3) per hpf Ur Squamous Epith Cells (None-Few) per lpf Urine Bacteria (None-Few) per hpf Hyaline Casts (None-Few) per lpf Ur Culture Indicated? (NO) Attestation Statement - Attestation Attestation: EMR is forcing me to sign this record. This is a procedure note for arterial line placement by Dr. Madison performed under the direction of Dr. Tiara Guadarrama.
--- NOTE | 2018-03-13 15:25 | Emergency Department Note ---
Disposition Clinical Impression: Influenza A, Septic shock Disposition: Admitted As Inpatient Condition: Critical Referrals: NONE,PCP [Primary Care Provider] - General Adult HPI - General Chief complaint: ED Shortness of Breath/Dyspnea Stated complaint: N/V/D URI Time Seen by Provider: 03/13/18 01:23 Source: patient Limitations: no limitations - History of Present Illness Pain Scale: 0 - Related Data Home Medications Medication Instructions Recorded Confirmed Albuterol Sulfate [Proair Hfa] 1 - 2 puff IH Q4-6H PRN 06/04/16 08/14/17 Aspirin [Ecotrin] 325 mg PO DAILY 06/04/16 08/14/17 Atorvastatin Calcium [Lipitor] 20 mg PO HS 06/04/16 08/14/17 Cholecalciferol (D-3) [Vitamin D] 2,000 unit PO DAILY 06/04/16 08/14/17 Cyclobenzaprine HCl 2.5 - 5 mg PO TID PRN 06/04/16 08/14/17 FLUoxetine HCl [Fluoxetine HCl] 40 mg PO DAILY 06/04/16 08/14/17 Ferrous Sulfate [Iron] 325 mg PO BID 06/04/16 08/14/17 Gabapentin [Neurontin] 300 mg PO TID 06/04/16 08/14/17 Glimepiride [Amaryl] 3 mg PO BID 06/04/16 08/14/17 Loratadine [Allergy Relief] 10 mg PO DAILY 06/04/16 08/14/17 Magnesium Oxide [Magnesium] 400 mg PO BID 06/04/16 08/14/17 Pantoprazole Sodium [Protonix] 40 mg PO DAILY 06/04/16 08/14/17 raNITIdine HCl [Zantac] 150 mg PO BID 06/04/16 08/14/17 Amitriptyline [Elavil] 25 mg PO HS 01/13/17 08/14/17 Calcium Carbonate/Vitamin D3 1 tab PO BID 08/14/17 08/14/17 [Calcium 600-Vit D3 200 Tablet] SitaGLIPtin [Januvia] 100 mg PO DAILY 08/14/17 08/14/17 Previous Rx's Medication Instructions Recorded HYDROcodone/Acet 7.5/325 mg [[place] 1 tab PO Q6HR PRN 5 Days #20 tablet 08/19/17 7.5-325 mg] Ondansetron Oral Soln [Zofran Oral 2 mg PO Q6-8H PRN 10 Days #40 08/19/17 Soln] oral.syg Vancomycin Oral Soln [Firvanq] 125 mg PO QID 8 Days #32 unit 08/19/17 Allergies Allergy/AdvReac Type Severity Reaction Status Date / Time clonidine Allergy Blister Verified 08/14/17 00:21 Constitutional: Reports: fever, chills Eyes: Denies: eye pain, eye discharge, vision change ENT ED: Reports: congestion Cardiovascular: Denies: chest pain, palpitations, syncope Respiratory: Reports: cough, sputum production. Denies: dyspnea, wheezes Gastrointestinal: Reports: abdominal pain, nausea, vomiting, diarrhea. Denies: constipation, hematemesis, melena, hematochezia Genitourinary: Denies: urgency, dysuria, frequency Musculoskeletal: Denies: back pain Integumentary: Denies: rash Neurological: Denies: headache, weakness, numbness Endocrine: Reports: fatigue Past Medical History - Past Medical History Medical history: Reports: arthritis, diabetes, GERD, hyperlipidemia, hypertension, renal disease Surgical history: Reports: appendectomy, , cholecystectomy Psychiatric history: Reports: anxiety - Social History Smoking Status: Never smoker Smokeless Tobacco Status: No Alcohol use: Reports: none Drug use: Reports: none Physical Exam - General Limitations: no limitations General appearance: alert, in no apparent distress, other (Appears ill- appearing) Course Course Narrative: accepted sign out from Dr. Gifford. This patinet is an ICU patinet that is sufering from influenza A likely pneumonia. Patient otherwise was hypotensive so she was started on vasopressors per the night team and is currently an ED hold. She is admitted to ICU and floor orders have been placed per the hospitalist team. We will contineu to monitor in the event of emergency until she has been transferred tot ICU Vital Signs Temperature 97.4 F L 03/13/18 00:44 Pulse Rate 125 03/13/18 00:44 Respiratory Rate 14 03/13/18 00:44 Blood Pressure 191/167 03/13/18 00:44 O2 Sat by Pulse Oximetry 94 03/13/18 00:44 Temperature 99.5 F 03/13/18 08:30 Pulse Rate 72 03/13/18 13:17 Respiratory Rate 16 03/13/18 13:17 Blood Pressure 99/60 03/13/18 13:17 O2 Sat by Pulse Oximetry 96 03/13/18 13:17 Oxygen Delivery Oxygen Delivery Room Air Procedures - Arterial Line Size (Gauge): 20 Medical Decision Making - Lab Data Result diagrams: 03/13/18 03:13 03/13/18 03:13 Lab Results 03/13/18 03/13/18 03/13/18 Range/Units 03:05 03:13 03:13 WBC 9.6 (4.3-11.1) K/mcL RBC 4.70 (3.82-4.97) M/mcL Hgb 14.2 (11.5-15.4) g/dL Hct 42.8 (35.3-44.9) % MCV 91.1 (83.0-100.0) fL MCH 30.2 (28.0-33.3) pg MCHC 33.2 (31.6-35.5) g/dL RDW 13.2 (11.5-14.5) % Plt Count 170 (140-400) K/mcL MPV 11.2 (9.4-12.4) fL Immature Gran % 0.8 (0-4) % Seg Neutrophils % 91.9 % Lymphocytes % 3.0 % Monocytes % 3.9 % Eosinophils % 0.0 % Basophils % 0.4 % Neutrophils # 8.9 (1.6-8.9) K/mcL Lymphocytes # 0.3 L (0.6-4.6) K/mcL Monocytes # 0.4 (0.0-1.3) K/mcL Eosinophils # 0.0 (0.0-0.6) K/mcL Basophils # 0.0 (0.0-0.2) K/mcL Sodium 130 L (136-145) mEq/L Potassium 3.5 (3.5-5.1) mEq/L Chloride 100 (98-107) mEq/L Carbon Dioxide 21 L (23-29) mEq/L BUN 31 H (6-20) mg/dL Creatinine 1.80 H (0.60-1.20) mg/dL Est GFR ( Amer) 36 L (> 60) Est GFR (Non-Af Amer) 29 L (> 60) BUN/Creatinine Ratio 17 (6-26) Glucose 291 H (70-105) mg/dL Calculated Osmolality 287 (280-300) Lactic Acid (0.5-2.2) mmol/L Calcium 8.2 L (8.6-10.3) mg/dL Total Bilirubin 0.2 L (0.3-1.0) mg/dL Direct Bilirubin 0.0 (0.0-0.2) mg/dL Indirect Bilirubin 0.2 (0.0-1.2) mg/dL AST 26 (13-39) Units/L ALT 28 (7-52) Units/L Alkaline Phosphatase 59 (34-104) Units/L Troponin I (< 0.04) ng/mL Serum Total Protein 6.2 L (6.4-8.9) g/dL Albumin 3.7 (3.5-5.7) g/dL Globulin 2.5 (2.4-3.5) g/dL Albumin/Globulin Ratio 1.5 (1.1-2.2) Lipase 22 (11-82) Units/L Urine Color Yellow (Yellow) Urine Clarity Clear (Clear) Urine pH 5.5 (5.0-8.0) pH Units Ur Specific [place] 1.023 (1.010-1.025) Urine Protein Trace (Neg-Trace) mg/dL Urine Glucose (UA) >=1000 H (Normal) mg/dL Urine Ketones Negative (Negative) mg/dL Urine Blood Negative (Negative) Urine Nitrite Negative (Negative) Urine Bilirubin Negative (Negative) Urine Urobilinogen Normal (Normal) mg/dL Ur Leukocyte Esterase Small H (Negative) Urine Microscopic RBC 5-15 H (0-3) per hpf Urine Microscopic WBC 5-15 H (0-3) per hpf Ur Squamous Epith Cells Many H (None-Few) per lpf Urine Bacteria None Seen (None-Few) per hpf Hyaline Casts Few (None-Few) per lpf Ur Culture Indicated? NO. A (NO) 03/13/18 03/13/18 03/13/18 Range/Units 03:13 03:13 07:23 WBC (4.3-11.1) K/mcL RBC (3.82-4.97) M/mcL Hgb (11.5-15.4) g/dL Hct (35.3-44.9) % MCV (83.0-100.0) fL MCH (28.0-33.3) pg MCHC (31.6-35.5) g/dL RDW (11.5-14.5) % Plt Count (140-400) K/mcL MPV (9.4-12.4) fL Immature Gran % (0-4) % Seg Neutrophils % % Lymphocytes % % Monocytes % % Eosinophils % % Basophils % % Neutrophils # (1.6-8.9) K/mcL Lymphocytes # (0.6-4.6) K/mcL Monocytes # (0.0-1.3) K/mcL Eosinophils # (0.0-0.6) K/mcL Basophils # (0.0-0.2) K/mcL Sodium (136-145) mEq/L Potassium (3.5-5.1) mEq/L Chloride (98-107) mEq/L Carbon Dioxide (23-29) mEq/L BUN (6-20) mg/dL Creatinine (0.60-1.20) mg/dL Est GFR ( Amer) (> 60) Est GFR (Non-Af Amer) (> 60) BUN/Creatinine Ratio (6-26) Glucose (70-105) mg/dL Calculated Osmolality (280-300) Lactic Acid 2.3 H 0.8 (0.5-2.2) mmol/L Calcium (8.6-10.3) mg/dL Total Bilirubin (0.3-1.0) mg/dL Direct Bilirubin (0.0-0.2) mg/dL Indirect Bilirubin (0.0-1.2) mg/dL AST (13-39) Units/L ALT (7-52) Units/L Alkaline Phosphatase (34-104) Units/L Troponin I < 0.03 (< 0.04) ng/mL Serum Total Protein (6.4-8.9) g/dL Albumin (3.5-5.7) g/dL Globulin (2.4-3.5) g/dL Albumin/Globulin Ratio (1.1-2.2) Lipase (11-82) Units/L Urine Color (Yellow) Urine Clarity (Clear) Urine pH (5.0-8.0) pH Units Ur Specific [place] (1.010-1.025) Urine Protein (Neg-Trace) mg/dL Urine Glucose (UA) (Normal) mg/dL Urine Ketones (Negative) mg/dL Urine Blood (Negative) Urine Nitrite (Negative) Urine Bilirubin (Negative) Urine Urobilinogen (Normal) mg/dL Ur Leukocyte Esterase (Negative) Urine Microscopic RBC (0-3) per hpf Urine Microscopic WBC (0-3) per hpf Ur Squamous Epith Cells (None-Few) per lpf Urine Bacteria (None-Few) per hpf Hyaline Casts (None-Few) per lpf Ur Culture Indicated? (NO) 03/13/18 Range/Units 09:59 WBC (4.3-11.1) K/mcL RBC (3.82-4.97) M/mcL Hgb (11.5-15.4) g/dL Hct (35.3-44.9) % MCV (83.0-100.0) fL MCH (28.0-33.3) pg MCHC (31.6-35.5) g/dL RDW (11.5-14.5) % Plt Count (140-400) K/mcL MPV (9.4-12.4) fL Immature Gran % (0-4) % Seg Neutrophils % % Lymphocytes % % Monocytes % % Eosinophils % % Basophils % % Neutrophils # (1.6-8.9) K/mcL Lymphocytes # (0.6-4.6) K/mcL Monocytes # (0.0-1.3) K/mcL Eosinophils # (0.0-0.6) K/mcL Basophils # (0.0-0.2) K/mcL Sodium (136-145) mEq/L Potassium (3.5-5.1) mEq/L Chloride (98-107) mEq/L Carbon Dioxide (23-29) mEq/L BUN (6-20) mg/dL Creatinine (0.60-1.20) mg/dL Est GFR ( Amer) (> 60) Est GFR (Non-Af Amer) (> 60) BUN/Creatinine Ratio (6-26) Glucose (70-105) mg/dL Calculated Osmolality (280-300) Lactic Acid 0.7 (0.5-2.2) mmol/L Calcium (8.6-10.3) mg/dL Total Bilirubin (0.3-1.0) mg/dL Direct Bilirubin (0.0-0.2) mg/dL Indirect Bilirubin (0.0-1.2) mg/dL AST (13-39) Units/L ALT (7-52) Units/L Alkaline Phosphatase (34-104) Units/L Troponin I (< 0.04) ng/mL Serum Total Protein (6.4-8.9) g/dL Albumin (3.5-5.7) g/dL Globulin (2.4-3.5) g/dL Albumin/Globulin Ratio (1.1-2.2) Lipase (11-82) Units/L Urine Color (Yellow) Urine Clarity (Clear) Urine pH (5.0-8.0) pH Units Ur Specific [place] (1.010-1.025) Urine Protein (Neg-Trace) mg/dL Urine Glucose (UA) (Normal) mg/dL Urine Ketones (Negative) mg/dL Urine Blood (Negative) Urine Nitrite (Negative) Urine Bilirubin (Negative) Urine Urobilinogen (Normal) mg/dL Ur Leukocyte Esterase (Negative) Urine Microscopic RBC (0-3) per hpf Urine Microscopic WBC (0-3) per hpf Ur Squamous Epith Cells (None-Few) per lpf Urine Bacteria (None-Few) per hpf Hyaline Casts (None-Few) per lpf Ur Culture Indicated? (NO)
[2018-03-13] MEDS ORDERED: Naloxone 0.4 MG/ML INJ IVP PRN (16:59)
[2018-03-13] MEDS ORDERED: Dextrose Gel 15 GM/37.5 ML TUBE PO PRN ×2 (17:09)
[2018-03-13] MEDS ORDERED: *HR* Dextrose 50 % in Water (Syg) 50 ML SYRINGE IVP PRN (17:09)
[2018-03-13] MEDS ORDERED: D5% in Water 1,000 ML IVC PRN (17:09)
--- NOTE | 2018-03-13 17:46 | Internal Med History&Physical ---
Date of Encounter: 03/13/18 Time of Encounter: 17:00 Internal Medicine - H&P: HPI Chief complaint: Fevers, weakness for a couple of days History of present illness: Ms. Mireles is a 52 year old female with pmh of diabetes type 2, CKD stage 3, hypertension , dyslipidemia presenting with complaints of chills and fevers and generalized body aches for about 2 days. Patient says her symptoms began with burning eyes and severe nausea and vomiting, after which she began to have generalized body aches, fevers and chills. She also admits to a productive cough and diarrhea. She denies any chest pain or confusion. She was noted to be febrile up to 101.9 and hypotensive to the 70s, and received 2.5L of IV fluids but was still persistently hypotensive, so patient had a central line placed and was started on levophed. She was also administered broad spectrum antibiotics wi th vanc and zosyn. She is being admitted for further management Past Med Surg Social Fam HX - Past Medical History Medical history: arthritis, diabetes, GERD, hyperlipidemia, hypertension, renal disease Additional medical history: hiatel hernia - diverticulosis. stage III renal failure Psychiatric history: anxiety - Past Surgical History Surgical History: appendectomy, , cholecystectomy Additional surgical history: rt carpal,. colonoscopy,. egd,. left thumb. Cleft Palate Repair - Social History Smoking Status: Never smoker Smokeless Tobacco Status: No Alcohol use: none Drug use: none - Family History Father Living Status: Hx Family Cardiac Disorders: Yes Hx Family Endocrine Disorder: Yes (diabetes) Mother Living Status: Still Living Hx Family Cardiac Disorders: Yes (HTN) Hx Family Endocrine Disorder: Yes (DIABETES) Internal Medicine - H&P: Meds Albuterol Sulfate [Proair Hfa] 1 - 2 puff IH Q4-6H PRN 06/04/16 [History] Aspirin [Ecotrin] 325 mg PO DAILY 06/04/16 [History] Atorvastatin Calcium [Lipitor] 20 mg PO HS 06/04/16 [History] Cholecalciferol (D-3) [Vitamin D] 2,000 unit PO DAILY 06/04/16 [History] Cyclobenzaprine HCl 2.5 - 5 mg PO TID PRN 06/04/16 [History] FLUoxetine HCl [Fluoxetine HCl] 40 mg PO DAILY 06/04/16 [History] Ferrous Sulfate [Iron] 325 mg PO BID 06/04/16 [History] Gabapentin [Neurontin] 300 mg PO TID 06/04/16 [History] Glimepiride [Amaryl] 3 mg PO BID 06/04/16 [History] Loratadine [Allergy Relief] 10 mg PO DAILY 06/04/16 [History] Magnesium Oxide [Magnesium] 400 mg PO BID 06/04/16 [History] Pantoprazole Sodium [Protonix] 40 mg PO DAILY 06/04/16 [History] raNITIdine HCl [Zantac] 150 mg PO BID 06/04/16 [History] Amitriptyline [Elavil] 25 mg PO HS 01/13/17 [History] Calcium Carbonate/Vitamin D3 [Calcium 600-Vit D3 200 Tablet] 1 tab PO BID 08/14/17 [History] SitaGLIPtin [Januvia] 100 mg PO DAILY 08/14/17 [History] HYDROcodone/Acet 7.5/325 mg [[place] 7.5-325 mg] 1 tab PO Q6HR PRN 5 Days #20 tablet 08/19/17 [Rx] Ondansetron Oral Soln [Zofran Oral Soln] 2 mg PO Q6-8H PRN 10 Days #40 oral.syg 08/19/17 [Rx] Vancomycin Oral Soln [Firvanq] 125 mg PO QID 8 Days #32 unit 08/19/17 [Rx] Allergy/AdvReac Type Severity Reaction Status Date / Time clonidine Allergy Blister Verified 08/14/17 00:21 All Systems PM: A 10-system review of systems was performed and is negative for pertinent findings except as documented above in the HPI. - Constitutional Constitutional: chills, fever(s), lethargy, malaise, no night sweats - EENT Eyes: no change in vision, no discharge, no pain, no photophobia Ears: no ear discharge, no ear pain, no tinnitus Nose, mouth and throat: no dysphagia, no nasal discharge, no neck pain, no sore throat - Cardiovascular Cardiovascular ROS IM: no chest pain, no diaphoresis, no dyspnea, no lightheadedness, no palpitations, no syncope - Respiratory Respiratory: no cough, no dyspnea, no wheezing, no excessive phlegm production - Gastrointestinal Gastrointestinal: abdominal pain, diarrhea, no hematemesis, no hematochezia, no melena, no nausea, no vomiting - Genitourinary Genitourinary: no change in urinary stream, no dysuria, no flank pain, no hematuria - Musculoskeletal Musculoskeletal ROS IM: no numbness, no tingling - Integumentary Integumentary IM: no rash, no unusual bruising - Neurological Neurological ROS: no confusion, no convulsions, no focal weakness, no numbness, no tingling, no tremor(s) - Hematologic/Lymphatic Hematologic/Lymphatic: no easy bruising - Constitutional Vitals: Temp Pulse Resp BP Pulse Ox 99.5 F 69 15 131/71 99 03/13/18 08:30 03/13/18 16:35 03/13/18 17:34 03/13/18 17:34 03/13/18 17:34 Exam: NAD - Head Head exam: Present: atraumatic, normocephalic - Eye Eye exam: Present: PERRL, conjuntiva pink, sclera anicteric Pupils: Present: PERRL - Neck Neck exam general surgery: Present: supple, trachea midline. Absent: lymphadenopathy - Respiratory Respiratory exam: Present: CTAB. Absent: accessory muscle use, rales, rhonchi, wheezes - Cardiovascular Cardiovascular exam: Present: RRR, +S1, +S2. Absent: diastolic murmur, gallop, rubs, systolic murmur - GI/Abdominal GI/Abdominal exam: Present: normal bowel sounds, soft, no peritoneal signs. Absent: distended, tenderness - Extremities Exam Extremities exam: Present: warm, radial pulses palpable and symmetrical. Absent: calf tenderness, cyanotic, pedal edema - Neurological Exam Neurological exam: Present: CN II-XII intact, oriented X3, no focal deficits. Absent: pronater drift, facial droop, speech deficit - Skin Skin exam: Present: dry, intact Internal Med - H&P Results - Labs CBC & Chem 7: 03/13/18 03:13 03/13/18 03:13 Labs: Short CBC 03/13/18 Range/Units 03:13 WBC 9.6 (4.3-11.1) K/mcL Hgb 14.2 (11.5-15.4) g/dL Hct 42.8 (35.3-44.9) % Plt Count 170 (140-400) K/mcL Neutrophils # 8.9 (1.6-8.9) K/mcL BMP 03/13/18 03:13 Sodium 130 L Potassium 3.5 Chloride 100 Carbon Dioxide 21 L BUN 31 H Creatinine 1.80 H Glucose 291 H Calcium 8.2 L Cardiac Enzymes 03/13/18 Range/Units 03:13 Troponin I < 0.03 (< 0.04) ng/mL Liver Function 03/13/18 Range/Units 03:13 Total Bilirubin 0.2 L (0.3-1.0) mg/dL Direct Bilirubin 0.0 (0.0-0.2) mg/dL AST 26 (13-39) Units/L ALT 28 (7-52) Units/L Alkaline Phosphatase 59 (34-104) Units/L Albumin 3.7 (3.5-5.7) g/dL Urine 03/13/18 Range/Units 03:05 Urine Color Yellow (Yellow) Urine Clarity Clear (Clear) Urine pH 5.5 (5.0-8.0) pH Units Ur Specific [place] 1.023 (1.010-1.025) Urine Protein Trace (Neg-Trace) mg/dL Urine Glucose (UA) >=1000 H (Normal) mg/dL - Impressions ITS Impressions Abdomen/Pelvis CT 03/13/18 02:15 IMPRESSION: 1. No acute noncontrast findings in the abdomen or pelvis. 2. Diverticulosis without evidence acute diverticulitis. 3. Hepatic steatosis and hepatomegaly. D/ / 03/13/2018 08:01:20 Desiree Mireles MD / meghan Interpreting Provider: Desiree Mireles MD Chest X-Ray 03/13/18 02:15 IMPRESSION: No acute cardiopulmonary findings. D/ / Joel Curtis / Joel Curtis Interpreting Provider: Joel Curtis Chest X-Ray 03/13/18 07:08 IMPRESSION: Right IJ catheter with tip projecting in the region of the mid to lower SVC. D/ / Teressa Benavidez MD / Teressa Benavidez MD Interpreting Provider: Teressa Benavidez MD - Assessment and plan (1) Septic shock Current Visit: Yes Status: Acute Assessment and plan: Pt comes in with fevers, diarrhe and chills with max temp of 101.9 and severe hypotension requiring levophed in the ED Was weaned off levophed over a 10 hr period. Continue iv fluids and broad spectrum antibiotics wth vanc and zosyn Follow up blood cultures, stool panel and respiratory panel. Source likely 2/2 to influenza vs pneumonia vs possible GI source (2) Influenza A Current Visit: Yes Status: Acute Assessment and plan: See #1. continue IV fluids and oseltamivir (3) Acute kidney injury Current Visit: Yes Status: Acute Assessment and plan: Creatinine elevated at 1.8. No CKD at baseline. Continue IV fluid hydration. Monitor repeat BMP (4) Diabetes Current Visit: Yes Status: Chronic Assessment and plan: Continue insulin monitor fingersticks. 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 Diabetes mellitus complication status: with kidney complications Diabetes mellitus complication detail: with chronic kidney disease Chronic kidney disease stage: stage 3 (moderate) Qualified Code(s): E11.22 - Type 2 diabetes mellitus with diabetic chronic kidney disease; N18.3 - Chronic kidney disease, stage 3 (moderate) (5) Hypertension Current Visit: Yes Status: Acute Assessment and plan: No indication for antihypertensives now as patient has just been weaned off levophed Qualifiers: Hypertension type: essential hypertension Qualified Code(s): I10 - Essential (primary) hypertension (6) DVT prophylaxis Current Visit: Yes Status: Acute Assessment and plan: Heparin sc - Time Spent With Patient Total time spent is greater than 50% in coordination of care (as documented) at patient's floor/unit and/or counseling patient:
[2018-03-13] MEDS ORDERED: *HR* HYDROcodone/Acet 7.5/325 mg TABLET PO PRN (18:16)
[2018-03-13] MEDS ORDERED: traMADol 50 MG TABLET PO PRN (18:51)
[2018-03-13] MEDS: 0.9 % Sodium Chloride 1,000 ML IVC SCH (19:34)
[2018-03-13] MEDS: Acetaminophen 325 MG TABLET PO PRN (19:35)
[2018-03-13] MEDS: *HR* Heparin 5,000 UNIT/ML VIAL SQ SCH (19:36)
[2018-03-13] MEDS: Piperacillin/Tazobactam 3.375 GM in 0.9 % Sodium Chloride Mini Bag 100 ML IVPB SCH (19:36)
[2018-03-13] MEDS: Gabapentin 300 MG CAPSULE PO SCH (21:13)
[2018-03-13] MEDS: Oseltamivir Phosphate 30 MG CAPSULE PO SCH (21:14)
[2018-03-13 22:44] LABS: Adenovirus Not Detected (Not Detect); Bordetella Pertussis Not Detected (Not Detect); Chlamydophila pneumoniae Not Detected (Not Detect); Coronavirus 229E Not Detected (Not Detect); Coronavirus HKU1 Not Detected (Not Detect); Coronavirus NL63 Not Detected (Not Detect); Coronavirus OC43 Not Detected (Not Detect); Human Metapneumovirus Not Detected (Not Detect); Human Rhinovirus/Enterovirus Not Detected (Not Detect); Influenza A Subtype 2009 H1 DETECTED (Not Detect); Influenza A Untypeable Not Detected (Not Detect); Influenza B Not Detected (Not Detect); Mycoplasma pneumoniae Not Detected (Not Detect); Parainfluenza Virus 1 Not Detected (Not Detect); Parainfluenza Virus 2 Not Detected (Not Detect); Parainfluenza Virus 3 Not Detected (Not Detect); Parainfluenza Virus 4 Not Detected (Not Detect); Respiratory Syncytial Virus Not Detected (Not Detect)
[2018-03-14] MEDS: Piperacillin/Tazobactam 3.375 GM in 0.9 % Sodium Chloride Mini Bag 100 ML IVPB SCH ×3 (02:30→16:47)
[2018-03-14] MEDS: 0.9 % Sodium Chloride 1,000 ML IVC SCH ×3 (03:19→17:35)
[2018-03-14] MEDS: *HR* Heparin 5,000 UNIT/ML VIAL SQ SCH ×2 (06:00→16:46)
[2018-03-14] MEDS: Aspirin Enteric Coated 325 MG Tablet PO SCH (08:14)
[2018-03-14] MEDS: Gabapentin 300 MG CAPSULE PO SCH ×3 (08:14→20:39)
[2018-03-14] MEDS: Oseltamivir Phosphate 30 MG CAPSULE PO SCH ×2 (08:14→20:37)
[2018-03-14] MEDS: Cholecalciferol (D-3) 1,000 UNIT TABLET PO SCH (08:14)
[2018-03-14] MEDS: FLUoxetine 20 MG CAPSULE PO SCH (08:14)
[2018-03-14] MEDS: Insulin LISPRO 300 UNITS/3 ML VIAL SQ SCH ×3 (08:16→16:48)
[2018-03-14] MEDS: Ondansetron 4 MG/2 ML VIAL IVP PRN ×2 (10:40→16:46)
[2018-03-14] MEDS: Acetaminophen 325 MG TABLET PO PRN (14:10)
[2018-03-14 15:20] LABS: Basophils % 0.9 %; Eosinophils % 0.5 %; Hematocrit 37.5 % (35.3-44.9); Hemoglobin 13.1 g/dL (11.5-15.4); Immature Granulocytes % 4.4 % (0-4); Lymphocytes # 1.4 K/mcL (0.6-4.6); Lymphocytes % 31.8 %; Mean Corpuscular HGB Conc 34.9 g/dL (31.6-35.5); Mean Corpuscular Hemoglobin 30.5 pg (28.0-33.3); Mean Corpuscular Volume 87.4 fL (83.0-100.0); Mean Platelet Volume 11.9 fL (9.4-12.4); Monocytes # 0.3 K/mcL (0.0-1.3); Monocytes % 7.9 %; Neutrophils # 2.3 K/mcL (1.6-8.9); Nucleated Red Blood Cells 0.5 /100 WBC (0); Platelet Count 163 K/mcL (140-400); Red Blood Count 4.29 M/mcL (3.82-4.97); Red Cell Distribution Width 13.2 % (11.5-14.5); Segmented Neutrophils % 54.5 %
--- NOTE | 2018-03-14 16:45 | Internal Med Progress Note ---
Hospitalist Progress Note - Encounter Date of Encounter: 03/14/18 Time of Encounter: 16:43 - Subjective Interval History: Pt states she is feeling better. She denies chest pain and SOB slowly improving. She denies ever smoking but does admit to hx of second hand smoke. She admits to history of asthma which she states was diagnosed a few months ago. - Exam Vitals: Temp Pulse Resp BP Pulse Ox 98.3 F 90 19 128/73 94 03/14/18 16:27 03/14/18 16:27 03/14/18 16:27 03/14/18 16:27 03/14/18 16:27 Exam: NAD - Head Head exam: Present: atraumatic, normocephalic - Eye Eye exam: Present: PERRL, conjuntiva pink, sclera anicteric Pupils: Present: PERRL - Neck Neck exam general surgery: Present: supple, trachea midline. Absent: lymphadenopathy - Respiratory Respiratory exam: Present: wheezing bilaterally. Absent: accessory muscle use, rales, and rhonchi - Cardiovascular Cardiovascular exam: Present: RRR, +S1, +S2. Absent: diastolic murmur, gallop, rubs, systolic murmur - GI/Abdominal GI/Abdominal exam: Present: normal bowel sounds, soft, no peritoneal signs. Absent: distended, tenderness - Extremities Exam Extremities exam: Present: warm, radial pulses palpable and symmetrical. Absent: calf tenderness, cyanotic, pedal edema - Neurological Exam Neurological exam: Present: CN II-XII intact, oriented X3, no focal deficits. Absent: pronater drift, facial droop, speech deficit - Skin Skin exam: Present: dry, intact - Assessment and Plan (1) Septic shock Current Visit: Yes Status: Acute Assessment and Plan: Pt presented with fevers, diarrhea, and chills with max temp of 101.9 and severe hypotension requiring levophed in the ED Was weaned off levophed over a 10 hr period. Resp panel positive for Influenza A (H1N1 09) Continue IV fluids. BP stable at this time. Will deescalate broad spectrum antibiotics with vanc and zosyn Blood cultures incubating. Source likely secondary to influenza (2) Influenza A (H1N1) Current Visit: Yes Status: Acute Assessment and Plan: Continue IV fluids and Oseltamivir. (3) Asthma exacerbation Current Visit: Yes Status: Acute Assessment and Plan: Starting on albuterol nebs Q 4H and will continue PRN. Will start on Prednisone with plans to taper. (4) Diabetes Current Visit: Yes Status: Chronic Assessment and Plan: Diabetes type II. Continue insulin and monitoring fingersticks. (5) Hypertension Current Visit: Yes Status: Acute Assessment and Plan: Resumed on spirinolactone. Antihypertensives where originally held due to hypotension. Weaned off levophed (6) Acute kidney injury Current Visit: Yes Status: Acute Assessment and Plan: Creatinine elevated at 1.8. No CKD at baseline. Given IV fluid hydration. Will monitor BMP (7) Diarrhea Current Visit: Yes Status: Acute Assessment and Plan: Likely due to Influenza. Improving slowly DVT Prophylaxis: Heparin sc - Summary of Assessment and Plan Summary of Assessment and Plan: History of present illness: Dr. Orozco Ms. Mireles is a 52 year old female with pmh of diabetes type 2, CKD stage 3, hypertension , dyslipidemia presenting with complaints of chills and fevers and generalized body aches for about 2 days. Patient says her symptoms began with burning eyes and severe nausea and vomiting, after which she began to have gen eralized body aches, fevers and chills. She also admits to a productive cough and diarrhea. She denies any chest pain or confusion. She was noted to be febrile up to 101.9 and hypotensive to the 70s, and received 2.5L of IV fluids but was still persistently hypotensive, so patient had a central line placed and was started on levophed. She was also administered broad spectrum antibiotics with vanc and zosyn. She is being admitted for further management - Time Spent with Patient Total time spent is greater than 50% in coordination of care (as documented) at patient's floor/unit and/or counseling patient: less than 15 minutes Plan of Care Discussed with: patient Internal Medicine: Result - Labs CBC & Chem 7: 03/14/18 14:59 03/13/18 03:13 Labs: Short CBC 03/14/18 Range/Units 14:59 WBC 4.3 D (4.3-11.1) K/mcL Hgb 13.1 (11.5-15.4) g/dL Hct 37.5 (35.3-44.9) % Plt Count 163 (140-400) K/mcL Neutrophils # 2.3 (1.6-8.9) K/mcL - Impressions Impressions Abdomen/Pelvis CT 03/13/18 02:15 IMPRESSION: 1. No acute noncontrast findings in the abdomen or pelvis. 2. Diverticulosis without evidence acute diverticulitis. 3. Hepatic steatosis and hepatomegaly. D/ / 03/13/2018 08:01:20 Desiree Mireles MD / meghan Interpreting Provider: Desiree Mireles MD Consult Discharge Plan - Plan Referrals: Nela Naylor DO [Partnered Physician] - 03/21/18 9:45 am (4) Diabetes Qualifiers: Diabetes mellitus type: type 2 Diabetes mellitus senior living insulin use: unspecified senior living insulin use status Diabetes mellitus complication status: with kidney complications Diabetes mellitus complication detail: with chronic kidney disease Chronic kidney disease stage: stage 3 (moderate) Qualified Code(s): E11.22 - Type 2 diabetes mellitus with diabetic chronic kidney disease; N18.3 - Chronic kidney disease, stage 3 (moderate) (5) Hypertension Qualifiers: Hypertension type: essential hypertension Qualified Code(s): I10 - Essential (primary) hypertension
[2018-03-14 17:04] LABS: BUN/Creatinine Ratio 13 (6-26); Blood Urea Nitrogen 11 mg/dL (6-20); Calcium 8.7 mg/dL (8.6-10.3); Carbon Dioxide 21 mEq/L (23-29); Chloride 109 mEq/L (98-107); Glucose 192 mg/dL (70-105); Magnesium 1.5 mg/dL (1.6-2.6); Osmolality,Calculated 287 (280-300); Phosphorous 1.9 mg/dL (2.7-4.5); Potassium 4.2 mEq/L (3.5-5.1); Sodium 136 mEq/L (136-145); eGFR For Non-African Americans > 60 (> 60)
[2018-03-14] MEDS: predniSONE 20 MG TABLET PO SCH (17:30)
[2018-03-14] MEDS: Albuterol 2.5 MG/3 ML NEBULIZER IH SCH (20:56)
[2018-03-15] MEDS: Albuterol 2.5 MG/3 ML NEBULIZER IH SCH ×5 (00:12→11:12)
[2018-03-15] MEDS: predniSONE 20 MG TABLET PO SCH ×3 (00:44→20:07)
[2018-03-15] MEDS: Piperacillin/Tazobactam 3.375 GM in 0.9 % Sodium Chloride Mini Bag 100 ML IVPB SCH ×2 (00:46→11:37)
[2018-03-15] MEDS: 0.9 % Sodium Chloride 1,000 ML IVC SCH ×2 (02:17→11:36)
[2018-03-15] MEDS ORDERED: Fluconazole 100 MG TABLET PO ONE (05:06)
[2018-03-15] MEDS ORDERED: Saliva Stimulant 100ml BOTTLE PO PRN (05:09)
[2018-03-15] MEDS: Ondansetron 4 MG/2 ML VIAL IVP PRN ×2 (05:40→11:31)
[2018-03-15] MEDS: *HR* Heparin 5,000 UNIT/ML VIAL SQ SCH ×2 (05:43→20:07)
[2018-03-15 06:19] LABS: Hematocrit 40.1 % (35.3-44.9); Hemoglobin 13.2 g/dL (11.5-15.4); Immature Granulocytes % 0.2 % (0-4); Lymphocytes # 0.4 K/mcL (0.6-4.6); Lymphocytes % 6.9 %; Mean Corpuscular HGB Conc 32.9 g/dL (31.6-35.5); Mean Corpuscular Hemoglobin 29.7 pg (28.0-33.3); Mean Corpuscular Volume 90.1 fL (83.0-100.0); Mean Platelet Volume 11.3 fL (9.4-12.4); Monocytes # 0.1 K/mcL (0.0-1.3); Monocytes % 1.5 %; Platelet Count 176 K/mcL (140-400); Red Blood Count 4.45 M/mcL (3.82-4.97); Red Cell Distribution Width 12.9 % (11.5-14.5); Segmented Neutrophils % 91.4 %
[2018-03-15 06:34] LABS: Albumin 3.4 g/dL (3.5-5.7); BUN/Creatinine Ratio 16 (6-26); Blood Urea Nitrogen 12 mg/dL (6-20); Calcium 8.9 mg/dL (8.6-10.3); Carbon Dioxide 18 mEq/L (23-29); Chloride 107 mEq/L (98-107); Glucose 269 mg/dL (70-105); Osmolality,Calculated 291 (280-300); Phosphorous 3.1 mg/dL (2.7-4.5); Potassium 3.9 mEq/L (3.5-5.1); Sodium 136 mEq/L (136-145); eGFR For Non-African Americans > 60 (> 60)
[2018-03-15] MEDS: Cholecalciferol (D-3) 1,000 UNIT TABLET PO SCH (08:16)
[2018-03-15] MEDS: Aspirin Enteric Coated 325 MG Tablet PO SCH (08:16)
[2018-03-15] MEDS: Lactobacillus 1 EACH CAP.SPRINK PO SCH (08:16)
[2018-03-15] MEDS: FLUoxetine 20 MG CAPSULE PO SCH (08:16)
[2018-03-15] MEDS: Insulin LISPRO 300 UNITS/3 ML VIAL SQ SCH ×3 (08:17→17:21)
[2018-03-15] MEDS: Oseltamivir Phosphate 30 MG CAPSULE PO SCH ×2 (08:17→20:06)
[2018-03-15] MEDS: Gabapentin 300 MG CAPSULE PO SCH ×3 (08:17→20:07)
--- NOTE | 2018-03-15 14:30 | Internal Med Progress Note ---
Hospitalist Progress Note - Encounter Date of Encounter: 03/15/18 Time of Encounter: 14:29 - Subjective Interval History: Pt states she is feeling much better overall. She did report feeling jittery after albuterol nebs. She denies chest pain and SOB improved significantly. She denied ever smoking but does admit to hx of second hand smoke exposure. She admits to history of asthma which she states was diagnosed a few months ago. - Exam Vitals: Temp Pulse Resp BP Pulse Ox 97.5 F L 75 18 125/88 95 03/15/18 11:34 03/15/18 11:34 03/15/18 11:34 03/15/18 11:34 03/15/18 11:34 Exam: NAD - Head Head exam: Present: atraumatic, normocephalic - Eye Eye exam: Present: PERRL, conjuntiva pink, sclera anicteric Pupils: Present: PERRL - Neck Neck exam general surgery: Present: supple, trachea midline. Absent: lymphadenopathy - Respiratory Respiratory exam: Present: CTABL. Absent: accessory muscle use, rales, wheezing, or rhonchi - Cardiovascular Cardiovascular exam: Present: RRR, +S1, +S2. Absent: diastolic murmur, gallop, rubs, systolic murmur - GI/Abdominal GI/Abdominal exam: Present: normal bowel sounds, soft, no peritoneal signs. Absent: distended, tenderness - Extremities Exam Extremities exam: Present: warm, radial pulses palpable and symmetrical. Ab sent: calf tenderness, cyanotic, pedal edema - Neurological Exam Neurological exam: Present: CN II-XII intact, oriented X3, no focal deficits. Absent: pronater drift, facial droop, speech deficit - Skin Skin exam: Present: dry, intact - Assessment and Plan (1) Septic shock Current Visit: Yes Status: Acute Assessment and Plan: Resolved. Pt presented with fevers, diarrhea, and chills with max temp of 101.9 and severe hypotension requiring levophed in the ED Was weaned off levophed over a 10 hr period. Resp panel positive for Influenza A (H1N1 09) Continue IV fluids. BP stable at this time. Will deescalate broad spectrum antibiotics with vanc and zosyn Blood cultures incubating. Source likely secondary to Influenza A H1N1 (2) Influenza A (H1N1) Current Visit: Yes Status: Acute Assessment and Plan: Continue IV fluids and Oseltamivir. (3) Asthma exacerbation Current Visit: Yes Status: Acute Assessment and Plan: Started on albuterol nebs Q 4H 03/14/18 but pt states akes her jittery. Will Dc nebs and resume home PRN albuterol inl. Will start to taper Prednisone for short course. prednisone started 03/14/18 (4) Diabetes Current Visit: Yes Status: Chronic Assessment and Plan: Diabetes type II. Continue insulin and monitoring finger sticks. (5) Hypertension Current Visit: Yes Status: Acute Assessment and Plan: Resumed on spirinolactone. Antihypertensives where originally held due to hypotension. Weaned off levophed (6) Acute kidney injury Current Visit: Yes Status: Acute Assessment and Plan: Resolved. Creatinine elevated at 1.8. No CKD at baseline. Given IV fluid hydration. Will monitor BMP (7) Diarrhea Current Visit: Yes Status: Acute Assessment and Plan: Likely due to Influenza. Improving slowly DVT Prophylaxis: Heparin sc - Summary of Assessment and Plan Summary of Assessment and Plan: History of present illness: Dr. Orozco Ms. Mireles is a 52 year old female with pmh of diabetes type 2, CKD stage 3, hypertension , dyslipidemia presenting with complaints of chills and fevers and generalized body aches for about 2 days. Patient says her symptoms began with burning eyes and severe nausea and vomiting, after which she began to have generalized body aches, fevers and chills. She also admits to a productive cough and diarrhea. She denies any chest pain or confusion. She was noted to be febrile up to 101.9 and hypotensive to the 70s, and received 2.5L of IV fluids but was still persistently hypotensive, so patient had a central line placed and was started on levophed. She was also administered broad spectrum antibiotics with vanc and zosyn. She is being admitted for further management - Time Spent with Patient Total time spent is greater than 50% in coordination of care (as documented) at patient's floor/unit and/or counseling patient: less than 15 minutes Plan of Care Discussed with: patient Internal Medicine: Result - Labs CBC & Chem 7: 03/15/18 05:39 03/15/18 05:39 Labs: Short CBC 03/14/18 03/15/18 Range/Units 14:59 05:39 WBC 4.3 D 5.5 (4.3-11.1) K/mcL Hgb 13.1 13.2 (11.5-15.4) g/dL Hct 37.5 40.1 (35.3-44.9) % Plt Count 163 176 (140-400) K/mcL Neutrophils # 2.3 5.0 (1.6-8.9) K/mcL BMP 03/14/18 03/15/18 16:29 05:39 Sodium 136 136 Potassium 4.2 3.9 Chloride 109 H 107 Carbon Dioxide 21 L 18 L BUN 11 12 Creatinine 0.85 0.77 Glucose 192 H 269 H Calcium 8.7 8.9 Liver Function 03/15/18 Range/Units 05:39 Albumin 3.4 L (3.5-5.7) g/dL Consult Discharge Plan - Plan Referrals: Nela Naylor DO [Partnered Physician] - 03/21/18 9:45 am __ (4) Diabetes Qualifiers: Diabetes mellitus type: type 2 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
[2018-03-16] MEDS ORDERED: Menthol 9.1 MG LOZENGE PO PRN (03:25)
[2018-03-16] MEDS: Acetaminophen 325 MG TABLET PO PRN (03:55)
[2018-03-16] MEDS: *HR* Heparin 5,000 UNIT/ML VIAL SQ SCH ×2 (05:27→17:57)
[2018-03-16] MEDS: predniSONE 20 MG TABLET PO SCH ×2 (05:30→17:57)
[2018-03-16 06:40] LABS: Hemoglobin 12.6 g/dL (11.5-15.4); Immature Granulocytes % 0.2 % (0-4); Lymphocytes # 0.9 K/mcL (0.6-4.6); Lymphocytes % 16.8 %; Mean Corpuscular HGB Conc 34.1 g/dL (31.6-35.5); Mean Corpuscular Hemoglobin 30.3 pg (28.0-33.3); Mean Corpuscular Volume 88.9 fL (83.0-100.0); Monocytes # 0.4 K/mcL (0.0-1.3); Monocytes % 6.7 %; Neutrophils # 4.2 K/mcL (1.6-8.9); Platelet Count 186 K/mcL (140-400); Red Blood Count 4.16 M/mcL (3.82-4.97); Red Cell Distribution Width 12.9 % (11.5-14.5); Segmented Neutrophils % 76.3 %
[2018-03-16 06:56] LABS: Albumin 3.3 g/dL (3.5-5.7); BUN/Creatinine Ratio 24 (6-26); Blood Urea Nitrogen 19 mg/dL (6-20); Calcium 8.9 mg/dL (8.6-10.3); Carbon Dioxide 20 mEq/L (23-29); Chloride 107 mEq/L (98-107); Glucose 277 mg/dL (70-105); Osmolality,Calculated 292 (280-300); Phosphorous 3.7 mg/dL (2.7-4.5); Potassium 4.1 mEq/L (3.5-5.1); Sodium 135 mEq/L (136-145); eGFR For Non-African Americans > 60 (> 60)
[2018-03-16] MEDS: Lactobacillus 1 EACH CAP.SPRINK PO SCH (08:40)
[2018-03-16] MEDS: FLUoxetine 20 MG CAPSULE PO SCH (08:41)
[2018-03-16] MEDS: Oseltamivir Phosphate 30 MG CAPSULE PO SCH ×2 (08:41→17:15)
[2018-03-16] MEDS: Cholecalciferol (D-3) 1,000 UNIT TABLET PO SCH (08:41)
[2018-03-16] MEDS: Gabapentin 300 MG CAPSULE PO SCH ×2 (08:41→17:57)
[2018-03-16] MEDS: Aspirin Enteric Coated 325 MG Tablet PO SCH (08:41)
[2018-03-16] MEDS: Insulin LISPRO 300 UNITS/3 ML VIAL SQ SCH ×3 (08:42→17:58)
[2018-03-16 12:33] VITALS: BP 104/69
--- NOTE | 2018-03-16 14:12 | Electrocardiograph Report ---
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
--- NOTE | 2018-03-16 14:36 | Discharge Summary ---
- NOTES TO OUTPATIENT PROVIDER Notes to Outpatient Provider: PCP in 5 to 7 days Orders not resulted at time of discharge: Pending orders 03/13/18 18:24 Culture,Blood [BC] Routine 03/17/18 04:00 CBC [Complete Blood Count] [HEME] AM 0400 Renal Function Panel AM 0400 03/18/18 04:00 CBC [Complete Blood Count] [HEME] AM 0400 Renal Function Panel AM 0400 Date of Encounter: 03/16/18 Time of Encounter: 14:34 - Discharge Diagnosis (1) Septic shock Priority: Primary Status: Acute Assessment and Plan: Resolved. Source likely secondary to Influenza A H1N1 Pt presented with fevers, diarrhea, and chills with max temp of 101.9 and severe hypotension requiring levophed in the ED Was weaned off levophed over a 10 hr period. Respiratory panel positive for Influenza A (H1N1 09) Continue IV fluids. BP stable at this time. Deescalated broad spectrum antibiotics and discontinued vanc and zosyn Blood cultures incubating and final report to follow. (2) Influenza A (H1N1) Priority: Primary Status: Acute Assessment and Plan: Resolving. Was managed with IV fluids and Tamiflu Will DC on Oseltamivir to complete doses. Pt denies chest pain or SOB. Denies fever, chills, N/V and diarrhea almost completely resolved. Saturation 95% on room air. (3) Asthma exacerbation Priority: Primary Status: Acute Assessment and Plan: Started on albuterol nebs Q 4H 03/14/18 but pt stated it made her jittery. May resume home PRN albuterol inh. Will DC on Prednisone for short course. prednisone started 03/14/18 Qualifiers: Qualified Code(s): J45.901 - Unspecified asthma with (acute) exacerbation (4) Diabetes Priority: Secondary Status: Chronic Assessment and Plan: Diabetes type II. Continue insulin and monitoring finger sticks at home. 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 Antihypertensives where originally held due to hypotension. Weaned off levophed Qualifiers: Hypertension type: essential hypertension Qualified Code(s): I10 - Essential (primary) hypertension (6) Acute kidney injury Priority: Secondary Status: Acute Assessment and Plan: Resolved. Creatinine elevated at 1.8 on admission. No CKD at baseline. Given IV fluid hydration and Cr 0.78 at discharge. (7) Diarrhea Priority: Secondary Status: Acute Assessment and Plan: Likely due to Influenza. Improving Qualifiers: Qualified Code(s): R19.7 - Diarrhea, unspecified Hospital course: History of present illness: Dr. Orozco Ms. Mireles is a 52 year old female with pmh of diabetes type 2, CKD stage 3, hypertension , dyslipidemia presenting with complaints of chills and fevers and generalized body aches for about 2 days. Patient says her symptoms began with burning eyes and severe nausea and vomiting, after which she began to have generalized body aches, fevers and chills. She also admits to a productive cough and diarrhea. She denies any chest pain or confusion. She was noted to be febrile up to 101.9 and hypotensive to the 70s, and received 2.5L of IV fluids but was still persistently hypotensive, so patient had a central line placed and was started on levophed. She was also administered broad spectrum antibiotics with vanc and zosyn. She is being admitted for further management. Dr. Juarez See HPI for assessment and plan. Discharge discussed with: patient - Time Spent with Patient Total time spent providing and/or coordinating discharge services: Greater than 30 minutes - Discharge Medications Home Medications: Albuterol Sulfate [Proair Hfa] 1 - 2 puff IH Q4-6H PRN 06/04/16 [History] Aspirin [Ecotrin] 325 mg PO DAILY 06/04/16 [History] Cholecalciferol (D-3) [Vitamin D] 2,000 unit PO DAILY 06/04/16 [History] Cyclobenzaprine HCl 2.5 - 5 mg PO TID PRN 06/04/16 [History] FLUoxetine HCl [Fluoxetine HCl] 40 mg PO DAILY 06/04/16 [History] Ferrous Sulfate [Iron] 325 mg PO BID 06/04/16 [History] Gabapentin [Neurontin] 300 mg PO TID 06/04/16 [History] Glimepiride [Amaryl] 4 mg PO BID 06/04/16 [History] Loratadine [Allergy Relief] 10 mg PO DAILY 06/04/16 [History] Magnesium Oxide [Magnesium] 400 mg PO BID 06/04/16 [History] Pantoprazole Sodium [Protonix] 40 mg PO DAILY 06/04/16 [History] Amitriptyline [Elavil] 25 mg PO HS 01/13/17 [History] Calcium Carbonate/Vitamin D3 [Calcium 600-Vit D3 200 Tablet] 1 tab PO BID 08/14/17 [History] SitaGLIPtin [Januvia] 100 mg PO DAILY 08/14/17 [History] Canagliflozin [Invokana] 100 mg PO DAILY 03/14/18 [History] Ciprofloxacin/Hydrocortisone [Cipro Hc Otic Suspension] 1 drop OT AD 03/14/18 [History] Fluticasone Propionate Nasal [Flonase] 50 mcg NS DAILY 03/14/18 [History] Furosemide [Lasix] 20 mg PO DAILY 03/14/18 [History] Lisinopril-HCTZ 20-12.5 [Prinzide 20-12.5] 1 each PO DAILY 03/14/18 [History] Sennosides/Docusate Sodium [Senna Plus] 1 each PO BID 03/14/18 [History] Spironolactone [Aldactone] 50 mg PO DAILY 03/14/18 [History] amLODIPine [Norvasc] 10 mg PO DAILY 03/14/18 [History] Oseltamivir Phosphate [Tamiflu] 30 mg PO BID 1 Days #2 capsule 03/16/18 [Rx] PredniSONE [Deltasone] 20 mg PO BID #7 tablet 03/16/18 [Rx] Allergies/Adverse Reactions: Allergy/AdvReac Type Severity Reaction Status Date / Time clonidine Allergy Blister Verified 08/14/17 00:21 Date of admission: 03/13/18 17:38 Primary care physician: PCP NONE Discharging clinician: Linsey Juarez Anticipated date of discharge: 03/16/18 - Constitutional Vitals: Temp Pulse Resp BP Pulse Ox 97.6 F 67 16 104/69 95 03/16/18 12:27 03/16/18 12:27 03/16/18 12:27 03/16/18 12:27 03/16/18 12:27 Exam: NAD - Head Head exam: Present: atraumatic, normocephalic - Eye Eye exam: Present: PERRL, conjuntiva pink, sclera anicteric Pupils: Present: PERRL - Neck Neck exam general surgery: Present: supple, trachea midline. Absent: lymphadenopathy - Respiratory Respiratory exam: Present: CTABL. Absent: accessory muscle use, rales, wheezing, or rhonchi - Cardiovascular Cardiovascular exam: Present: RRR, +S1, +S2. Absent: diastolic murmur, gallop, rubs, systolic murmur - GI/Abdominal GI/Abdominal exam: Present: normal bowel sounds, soft, no peritoneal signs. Absent: distended, tenderness - Extremities Exam Extremities exam: Present: warm, radial pulses palpable and symmetrical. Absent: calf tenderness, cyanotic, pedal edema - Neurological Exam Neurological exam: Present: CN II-XII intact, oriented X3, no focal deficits. Absent: pronater drift, facial droop, speech deficit - Skin Skin exam: Present: dry, intact - Patient Status Disposition: Home, Self-Care Condition: Good Overall status at discharge: patient is back to baseline - Discharge Instructions Follow Up With: Nela Naylor DO [Partnered Physician] - 03/21/18 9:45 am Forms: ED Satisfaction Letter - Diet and Activity Activity: increase activity as tolerated Diet: diabetic diet
== END 2018-03-16 19:06 | disposition home or self-care (01) | DRG 720 ==
LOC: EMEROOARM 00:25 → ICNU 12:01 → 2NNU 17:38 → 3ANU 03-15 18:06
PROVIDERS: ADMIT Student in an Organized Health Care Education/Training Program; ATTEND Student in an Organized Health Care Education/Training Program

== ENCOUNTER 2021-03-18 23:29 | Inpatient (IN) ==
[2021-03-18] MEDS ORDERED: Ondansetron 4 MG/2 ML VIAL IVP ONE (23:58)
[2021-03-18] MEDS ORDERED: *HR* HYDROmorphone (PF) 1 MG/ML SYRINGE IVP ONE (23:59)
[2021-03-19] MEDS ORDERED: *HR* FentaNYL (PF) 100 MCG/2 ML VIAL IVP ONE (00:35)
[2021-03-19] MEDS ORDERED: Metoclopramide 10 MG/2 ML VIAL IVP ONE (00:43)
[2021-03-19] MEDS ORDERED: *HR* HYDROmorphone (PF) 1 MG/ML SYRINGE IVP ONE (01:59)
[2021-03-19] MEDS ORDERED: Naloxone 0.4 MG/ML INJ IVP PRN (03:10)
[2021-03-19] MEDS ORDERED: Ondansetron 4 MG/2 ML VIAL IVP PRN (03:10)
[2021-03-19 06:01] LABS: Hematocrit 38.4 % (35.3-44.9); Hemoglobin 13.3 g/dL (11.5-15.4); Mean Corpuscular HGB Conc 34.6 g/dL (31.6-35.5); Mean Corpuscular Hemoglobin 31.3 pg (28.0-33.3); Mean Corpuscular Volume 90.4 fL (83.0-100.0); Mean Platelet Volume 10.3 fL (9.4-12.4); Platelet Count 235 K/mcL (140-400); Red Blood Count 4.25 M/mcL (3.82-4.97); Red Cell Distribution Width 13.2 % (11.5-14.5); White Blood Count 12.6 K/mcL (4.3-11.1)
[2021-03-19 06:16] LABS: Alanine Aminotransferase 21 Units/L (7-52); Albumin 4.3 g/dL (3.5-5.7); Alkaline Phosphatase 68 Units/L (34-104); Aspartate Amino Transferase 18 Units/L (13-39); BUN/Creatinine Ratio 22 (6-26); Bilirubin,Total 0.4 mg/dL (0.3-1.0); Blood Urea Nitrogen 23 mg/dL (6-20); Calcium 9.6 mg/dL (8.6-10.3); Carbon Dioxide 19 mEq/L (23-29); Chloride 102 mEq/L (98-107); Chol/HDL Ratio 2.7 (0-4.9); Cholesterol 96 mg/dL (< 200); Globulin 2.1 g/dL (2.4-3.5); Glucose 132 mg/dL (70-105); HDL Cholesterol 36 mg/dL (40-59); LDL Cholesterol,Calculated 21 mg/dL (< 100); Osmolality,Calculated 284 (280-300); Sodium 134 mEq/L (136-145); Total Protein 6.4 g/dL (6.4-8.9); Triglycerides 196 mg/dL (< 150); eGFR For African Americans > 60 (> 60); eGFR For Non-African Americans 55 (> 60)
[2021-03-19] MEDS ORDERED: D5% in Water 1,000 ML IVC PRN (06:17)
[2021-03-19] MEDS ORDERED: Dextrose Gel 15 GM/37.5 ML TUBE PO PRN ×2 (06:17)
[2021-03-19] MEDS ORDERED: *HR* Dextrose 50 % in Water (Syg) 50 ML SYRINGE IVP PRN (06:17)
[2021-03-19] MEDS: *HR* Heparin 5,000 UNIT/ML VIAL SQ SCH ×3 (06:30→20:36)
[2021-03-19] MEDS: *HR* HYDROmorphone (PF) 1 MG/ML SYRINGE IVP PRN ×4 (06:30→22:43)
[2021-03-19] MEDS ORDERED: Ringers Solution, Lactated 1,000 ML IVC ONE (09:48)
[2021-03-19] MEDS ORDERED: Acetaminophen IV 1,000 MG/100 ML BAG IVPB ONE (09:50)
[2021-03-19] MEDS ORDERED: HydrOXYzine 100 MG/2 ML VIAL IM ONE (09:51)
[2021-03-19] MEDS: Insulin LISPRO 300 UNITS/3 ML VIAL SUBQ SCH ×2 (13:31→17:24)
[2021-03-19] MEDS ORDERED: Ketorolac 30 MG/ML VIAL IVP ONE (16:08)
[2021-03-19 16:48] LABS: Hematocrit 38.5 % (35.3-44.9); Hemoglobin 13.1 g/dL (11.5-15.4)
[2021-03-19] MEDS ORDERED: Sennosides/Docusate Sodium TABLET PO PRN (19:04)
[2021-03-19] MEDS ORDERED: Magnesium Oxide 400 MG TABLET PO SCH (21:00)
[2021-03-19] MEDS ORDERED: Gabapentin 300 MG CAPSULE PO SCH (21:00)
[2021-03-20] MEDS: Insulin LISPRO 300 UNITS/3 ML VIAL SUBQ SCH ×4 (00:32→17:34)
[2021-03-20 02:05] LABS: Influenza A PCR Negative (Negative); Influenza B PCR Negative (Negative); Resp. Syncytial Virus PCR Negative (Negative)
[2021-03-20 02:08] LABS: SARS-CoV-2 by PCR (In House) Negative (Negative)
[2021-03-20] MEDS: *HR* Heparin 5,000 UNIT/ML VIAL SQ SCH (04:41)
[2021-03-20] MEDS ORDERED: Ringers Solution, Lactated 500 ML IVC ONE (06:59)
[2021-03-20] MEDS ORDERED: Pregabalin 75 MG CAPSULE PO ONE (07:07)
[2021-03-20 07:21] LABS: BUN/Creatinine Ratio 20 (6-26); Blood Urea Nitrogen 22 mg/dL (6-20); Calcium 9.8 mg/dL (8.6-10.3); Carbon Dioxide 24 mEq/L (23-29); Chloride 97 mEq/L (98-107); Glucose 198 mg/dL (70-105); Magnesium 1.8 mg/dL (1.6-2.6); Osmolality,Calculated 285 (280-300); Potassium 4.4 mEq/L (3.5-5.1); Sodium 133 mEq/L (136-145); eGFR For African Americans > 60 (> 60); eGFR For Non-African Americans 51 (> 60)
[2021-03-20] MEDS ORDERED: *HR* Labetalol 20 MG/4 ML SYRINGE IVP PRN (07:21)
[2021-03-20] MEDS ORDERED: *HR* OxyCODONE Immed Rel 5 MG TABLET PO PRN (07:21)
[2021-03-20] MEDS ORDERED: Albuterol 2.5 MG/3 ML NEBULIZER IH PRN (07:21)
[2021-03-20] MEDS ORDERED: Ondansetron 4 MG/2 ML VIAL IVP PRN ×3 (07:21→11:32)
[2021-03-20] MEDS ORDERED: Promethazine 6.25 MG in Water for inj. (sterile) 20 ML IVPB PRN (07:21)
[2021-03-20] MEDS ORDERED: *HR* HYDROmorphone PF 0.5 MG/0.5 ML SYRINGE IVP PRN (07:21)
[2021-03-20] MEDS ORDERED: *HR* FentaNYL (PF) 100 MCG/2 ML VIAL ONE (07:25)
[2021-03-20] MEDS ORDERED: *HR* Midazolam HCl 2 MG/2 ML VIAL ONE ×2 (07:25→13:52)
[2021-03-20] MEDS ORDERED: *HR* Propofol 200 MG/20 ML VIAL IVP ONE (07:25)
[2021-03-20] MEDS ORDERED: *HR* Succinylcholine 200 MG/10 ML VIAL IVP ONE (07:26)
[2021-03-20] MEDS ORDERED: Lidocaine -MPF 2% 5 ML VIAL ONE (07:26)
[2021-03-20] MEDS ORDERED: Lidocaine HCL 4 ML Topical Solution (Laryng-O-Jet Kit Sterile Pak) TP ONE (07:28)
[2021-03-20] MEDS ORDERED: Ringers Solution, Lactated 1,000 ML IVC ONE (07:33)
[2021-03-20 07:36] LABS: Basophils # 0.1 K/mcL (0.0-0.2); Basophils % 0.7 %; Eosinophils # 0.2 K/mcL (0.0-0.6); Eosinophils % 2.3 %; Hematocrit 39.3 % (35.3-44.9); Hemoglobin 13.3 g/dL (11.5-15.4); Immature Granulocytes % 0.5 % (0-4); Lymphocytes # 2.4 K/mcL (0.6-4.6); Lymphocytes % 25.2 %; Mean Corpuscular HGB Conc 33.8 g/dL (31.6-35.5); Mean Corpuscular Hemoglobin 31.5 pg (28.0-33.3); Mean Corpuscular Volume 93.1 fL (83.0-100.0); Mean Platelet Volume 10.5 fL (9.4-12.4); Monocytes # 0.8 K/mcL (0.0-1.3); Neutrophils # 5.9 K/mcL (1.6-8.9); Platelet Count 213 K/mcL (140-400); Red Blood Count 4.22 M/mcL (3.82-4.97); Red Cell Distribution Width 13.3 % (11.5-14.5); Segmented Neutrophils % 63.3 %; White Blood Count 9.4 K/mcL (4.3-11.1)
[2021-03-20] MEDS ORDERED: CeFAZolin Syr 2,000MG/20 ML 2,000 MG/20 ML SYRINGE IVPB ONE (07:39)
[2021-03-20] MEDS ORDERED: Povidone-Iodine 45 ML, Sodium Chloride IRRigation 1,000 ML IR ONE (07:45)
[2021-03-20] MEDS ORDERED: Tranexamic Acid 1,000 MG/10 ML VIAL ONE ×2 (08:13→13:17)
[2021-03-20] MEDS ORDERED: *HR* Rocuronium Bromide 50 MG/5 ML VIAL ONE ×2 (08:14→13:41)
[2021-03-20] MEDS ORDERED: Ondansetron 4 MG/2 ML VIAL ONE ×2 (08:16→13:33)
[2021-03-20] MEDS ORDERED: Ketamine HCL *QUVA* 50mg (1mL) SYRINGE ONE ×2 (08:17→13:42)
[2021-03-20] MEDS ORDERED: Albumin Human 5% 12.5 GM/250 ML IV.SOLN ONE (08:33)
[2021-03-20] MEDS ORDERED: FLUoxetine 20 MG CAPSULE PO SCH (09:00)
[2021-03-20] MEDS ORDERED: Cholecalciferol (D-3) 1,000 UNIT (25MCG) TABLET PO SCH (09:00)
[2021-03-20] MEDS ORDERED: Loratadine 10 MG TABLET PO SCH (09:00)
[2021-03-20] MEDS ORDERED: Prenatal Vit/FA 1 EACH TABLET PO SCH (09:00)
[2021-03-20] MEDS ORDERED: Neostigmine Methylsulfate 3 MG/3 ML SYRINGE ONE (09:52)
[2021-03-20] MEDS ORDERED: *HR* HYDROMORPHONE 2 MG/ML VIAL ONE (10:08)
[2021-03-20] MEDS ORDERED: Naloxone 0.4 MG/ML INJ IVP PRN ×2 (11:32)
[2021-03-20] MEDS ORDERED: Dextrose Gel 15 GM/37.5 ML TUBE PO PRN ×2 (11:32)
[2021-03-20] MEDS ORDERED: MOM Conc 10 ML UD.LIQ PO PRN (11:32)
[2021-03-20] MEDS ORDERED: *HR* Promethazine 25 MG/ML VIAL IM PRN (11:32)
[2021-03-20] MEDS ORDERED: *HR* Dextrose 50 % in Water (Syg) 50 ML SYRINGE IVP PRN (11:32)
[2021-03-20] MEDS ORDERED: D5% in Water 1,000 ML IVC PRN (11:32)
[2021-03-20] MEDS ORDERED: Sennosides 8.6 MG TABLET PO PRN (11:32)
[2021-03-20] MEDS ORDERED: Sennosides/Docusate Sodium TABLET PO PRN (11:32)
[2021-03-20] MEDS ORDERED: Ringers Solution, Lactated 1,000 ML IVC SCH (11:32)
[2021-03-20] MEDS: *HR* OxyCODONE Immed Rel 5 MG TABLET PO PRN ×3 (11:56→21:50)
[2021-03-20] MEDS: Morphine Sulfate 2 MG/ML SYRINGE IVP PRN (12:44)
[2021-03-20] MEDS ORDERED: Acetaminophen IV 1,000 MG/100 ML BAG IVPB ONE (13:46)
[2021-03-20] MEDS: Ketorolac 30 MG/ML VIAL IVP PRN (13:52)
[2021-03-20] MEDS: Artificial Tears SOLN 15 ML BOTTLE RIGHT EYE SCH ×3 (13:57→21:53)
[2021-03-20] MEDS: CeFAZolin 2 GM/120 ML BAG IVPB SCH ×2 (16:23→23:32)
[2021-03-20] MEDS: Ascorbic Acid 500 MG TABLET PO SCH (16:23)
[2021-03-20] MEDS: Gabapentin 300 MG CAPSULE PO SCH ×2 (16:23→21:50)
[2021-03-20] MEDS: Apixaban 5 MG TABLET PO SCH (21:50)
[2021-03-20] MEDS: Magnesium Oxide 400 MG TABLET PO SCH (21:50)
[2021-03-20] MEDS ORDERED: Insulin LISPRO 300 UNITS/3 ML VIAL SUBQ SCH (22:15)
[2021-03-21] MEDS: Morphine Sulfate 2 MG/ML SYRINGE IVP PRN (00:22)
[2021-03-21] MEDS: *HR* OxyCODONE Immed Rel 5 MG TABLET PO PRN ×4 (03:27→22:29)
[2021-03-21] MEDS: Ketorolac 30 MG/ML VIAL IVP PRN (03:54)
[2021-03-21 05:07] LABS: Basophils % 0.2 %; Eosinophils % 0.1 %; Hematocrit 29.3 % (35.3-44.9); Immature Granulocytes % 0.6 % (0-4); Lymphocytes # 1.3 K/mcL (0.6-4.6); Lymphocytes % 9.9 %; Mean Corpuscular HGB Conc 33.1 g/dL (31.6-35.5); Mean Corpuscular Hemoglobin 31.3 pg (28.0-33.3); Mean Corpuscular Volume 94.5 fL (83.0-100.0); Mean Platelet Volume 10.8 fL (9.4-12.4); Monocytes % 7.5 %; Neutrophils # 10.6 K/mcL (1.6-8.9); Platelet Count 151 K/mcL (140-400); Red Cell Distribution Width 12.8 % (11.5-14.5); Segmented Neutrophils % 81.7 %
[2021-03-21 05:08] LABS: Hemoglobin 9.7 g/dL (11.5-15.4)
[2021-03-21 05:29] LABS: BUN/Creatinine Ratio 22 (6-26); Blood Urea Nitrogen 24 mg/dL (6-20); Calcium 8.5 mg/dL (8.6-10.3); Carbon Dioxide 22 mEq/L (23-29); Chloride 97 mEq/L (98-107); Glucose 279 mg/dL (70-105); Magnesium 1.5 mg/dL (1.6-2.6); Osmolality,Calculated 278 (280-300); Sodium 127 mEq/L (136-145); eGFR For African Americans > 60 (> 60); eGFR For Non-African Americans 53 (> 60)
[2021-03-21] MEDS: Ascorbic Acid 500 MG TABLET PO SCH ×2 (08:21→16:42)
[2021-03-21] MEDS: Gabapentin 300 MG CAPSULE PO SCH ×3 (08:21→19:59)
[2021-03-21] MEDS: Magnesium Oxide 400 MG TABLET PO SCH ×2 (08:21→19:58)
[2021-03-21] MEDS: Prenatal Vit/FA 1 EACH TABLET PO SCH (08:22)
[2021-03-21] MEDS: FLUoxetine 20 MG CAPSULE PO SCH (08:22)
[2021-03-21] MEDS: Apixaban 5 MG TABLET PO SCH ×2 (08:22→19:58)
[2021-03-21] MEDS: Loratadine 10 MG TABLET PO SCH (08:24)
[2021-03-21] MEDS: Cholecalciferol (D-3) 1,000 UNIT (25MCG) TABLET PO SCH (08:24)
[2021-03-21] MEDS: Insulin LISPRO 300 UNITS/3 ML VIAL SUBQ SCH ×4 (08:27→16:45)
[2021-03-21] MEDS: Artificial Tears SOLN 15 ML BOTTLE RIGHT EYE SCH ×4 (08:35→20:02)
[2021-03-21] MEDS: Insulin DETEMIR 100 UNIT/ML X5UNITS SUBQ SCH ×2 (08:39→20:02)
[2021-03-21] MEDS ORDERED: Multivit/Ca/Min/Fe/FA 1 TAB TABLET PO SCH (09:00)
[2021-03-21] MEDS ORDERED: Iron Sucrose Complex 250 MG in 0.9 % Sodium Chloride 250 ML IVPB ONE (13:15)
[2021-03-21] MEDS ORDERED: E-Z-HD (BARIUM SULF) SUSPENSION PO ONE (16:03)
[2021-03-21] MEDS ORDERED: E-Z-PAQUE (BARIUM SULF) SUSP 1 BOTTLE PO ONE (16:03)
[2021-03-21] MEDS ORDERED: Melatonin 3 MG TABLET PO ONE (22:53)
[2021-03-22 04:21] LABS: Basophils # 0.1 K/mcL (0.0-0.2); Basophils % 0.5 %; Eosinophils # 0.2 K/mcL (0.0-0.6); Eosinophils % 1.8 %; Hematocrit 25.6 % (35.3-44.9); Hemoglobin 8.7 g/dL (11.5-15.4); Immature Granulocytes % 0.7 % (0-4); Lymphocytes # 2.6 K/mcL (0.6-4.6); Lymphocytes % 26.4 %; Mean Corpuscular Hemoglobin 31.9 pg (28.0-33.3); Mean Corpuscular Volume 93.8 fL (83.0-100.0); Mean Platelet Volume 10.4 fL (9.4-12.4); Monocytes # 0.9 K/mcL (0.0-1.3); Platelet Count 148 K/mcL (140-400); Red Blood Count 2.73 M/mcL (3.82-4.97); Red Cell Distribution Width 13.2 % (11.5-14.5); Segmented Neutrophils % 61.6 %; White Blood Count 9.8 K/mcL (4.3-11.1)
[2021-03-22 04:37] LABS: BUN/Creatinine Ratio 25 (6-26); Blood Urea Nitrogen 21 mg/dL (6-20); Calcium 8.3 mg/dL (8.6-10.3); Carbon Dioxide 23 mEq/L (23-29); Chloride 101 mEq/L (98-107); Glucose 158 mg/dL (70-105); Osmolality,Calculated 278 (280-300); Potassium 4.3 mEq/L (3.5-5.1); Sodium 131 mEq/L (136-145); eGFR For African Americans > 60 (> 60); eGFR For Non-African Americans > 60 (> 60)
[2021-03-22 04:41] LABS: Magnesium 1.6 mg/dL (1.6-2.6)
[2021-03-22 04:52] LABS: Thyroid Stimulating Hormone 0.38 mcIU/mL (0.340-5.600)
[2021-03-22] MEDS: Gabapentin 300 MG CAPSULE PO SCH ×3 (07:56→20:19)
[2021-03-22] MEDS: Magnesium Oxide 400 MG TABLET PO SCH ×2 (09:09→20:20)
[2021-03-22] MEDS: FLUoxetine 20 MG CAPSULE PO SCH (09:09)
[2021-03-22] MEDS: Ascorbic Acid 500 MG TABLET PO SCH ×2 (09:09→16:56)
[2021-03-22] MEDS: Cholecalciferol (D-3) 1,000 UNIT (25MCG) TABLET PO SCH (09:09)
[2021-03-22] MEDS: Apixaban 5 MG TABLET PO SCH ×2 (09:09→20:19)
[2021-03-22] MEDS: Loratadine 10 MG TABLET PO SCH (09:09)
[2021-03-22] MEDS: Prenatal Vit/FA 1 EACH TABLET PO SCH (09:09)
[2021-03-22] MEDS: Insulin LISPRO 300 UNITS/3 ML VIAL SUBQ SCH ×3 (09:13→16:58)
[2021-03-22] MEDS: Insulin DETEMIR 100 UNIT/ML X5UNITS SUBQ SCH ×2 (09:13→20:20)
[2021-03-22] MEDS: *HR* OxyCODONE Immed Rel 5 MG TABLET PO PRN ×3 (09:17→22:53)
[2021-03-22] MEDS: Artificial Tears SOLN 15 ML BOTTLE RIGHT EYE SCH ×4 (09:33→20:20)
[2021-03-22] MEDS: polyethylene glycoL 3350 17 GM POWD.PACK PO SCH (12:45)
[2021-03-22] MEDS: Sennosides/Docusate Sodium TABLET PO SCH ×2 (12:45→20:19)
[2021-03-22] MEDS ORDERED: Ketorolac 30 MG/ML VIAL IVP ONE (14:10)
[2021-03-23] MEDS: *HR* OxyCODONE Immed Rel 5 MG TABLET PO PRN ×5 (03:24→20:39)
[2021-03-23 07:30] LABS: Basophils # 0.1 K/mcL (0.0-0.2); Basophils % 0.6 %; Eosinophils # 0.3 K/mcL (0.0-0.6); Eosinophils % 3.7 %; Hematocrit 28.1 % (35.3-44.9); Hemoglobin 9.4 g/dL (11.5-15.4); Immature Granulocytes % 1.4 % (0-4); Lymphocytes # 2.4 K/mcL (0.6-4.6); Lymphocytes % 28.7 %; Mean Corpuscular HGB Conc 33.5 g/dL (31.6-35.5); Mean Corpuscular Hemoglobin 31.5 pg (28.0-33.3); Mean Corpuscular Volume 94.3 fL (83.0-100.0); Monocytes # 0.6 K/mcL (0.0-1.3); Monocytes % 7.4 %; Neutrophils # 4.9 K/mcL (1.6-8.9); Nucleated Red Blood Cells 0.2 /100 WBC (0); Platelet Count 192 K/mcL (140-400); Red Blood Count 2.98 M/mcL (3.82-4.97); Red Cell Distribution Width 13.3 % (11.5-14.5); Segmented Neutrophils % 58.2 %; White Blood Count 8.4 K/mcL (4.3-11.1)
[2021-03-23 07:47] LABS: BUN/Creatinine Ratio 20 (6-26); Blood Urea Nitrogen 16 mg/dL (6-20); Calcium 8.8 mg/dL (8.6-10.3); Carbon Dioxide 29 mEq/L (23-29); Chloride 100 mEq/L (98-107); Glucose 140 mg/dL (70-105); Osmolality,Calculated 283 (280-300); Sodium 135 mEq/L (136-145); eGFR For African Americans > 60 (> 60); eGFR For Non-African Americans > 60 (> 60)
[2021-03-23] MEDS: Insulin LISPRO 300 UNITS/3 ML VIAL SUBQ SCH ×3 (08:06→16:50)
[2021-03-23] MEDS: polyethylene glycoL 3350 17 GM POWD.PACK PO SCH (08:12)
[2021-03-23] MEDS: Apixaban 5 MG TABLET PO SCH ×2 (08:13→20:40)
[2021-03-23] MEDS: Gabapentin 300 MG CAPSULE PO SCH ×3 (08:13→20:40)
[2021-03-23] MEDS: Ascorbic Acid 500 MG TABLET PO SCH ×2 (08:13→16:40)
[2021-03-23] MEDS: Loratadine 10 MG TABLET PO SCH (08:13)
[2021-03-23] MEDS: Prenatal Vit/FA 1 EACH TABLET PO SCH (08:13)
[2021-03-23] MEDS: Magnesium Oxide 400 MG TABLET PO SCH ×2 (08:13→20:39)
[2021-03-23] MEDS: Cholecalciferol (D-3) 1,000 UNIT (25MCG) TABLET PO SCH (08:13)
[2021-03-23] MEDS: Artificial Tears SOLN 15 ML BOTTLE RIGHT EYE SCH ×4 (08:14→20:41)
[2021-03-23] MEDS: FLUoxetine 20 MG CAPSULE PO SCH (08:14)
[2021-03-23] MEDS: Sennosides/Docusate Sodium TABLET PO SCH ×2 (08:15→20:40)
[2021-03-23] MEDS: Insulin DETEMIR 100 UNIT/ML X5UNITS SUBQ SCH ×2 (08:20→20:41)
[2021-03-24] MEDS: *HR* OxyCODONE Immed Rel 5 MG TABLET PO PRN ×4 (01:01→12:56)
[2021-03-24 03:54] VITALS: TEMP 98.6
[2021-03-24 07:45] LABS: Basophils # 0.1 K/mcL (0.0-0.2); Basophils % 0.7 %; Eosinophils # 0.3 K/mcL (0.0-0.6); Eosinophils % 3.2 %; Hematocrit 28.2 % (35.3-44.9); Hemoglobin 9.4 g/dL (11.5-15.4); Lymphocytes # 2.6 K/mcL (0.6-4.6); Lymphocytes % 30.8 %; Mean Corpuscular HGB Conc 33.3 g/dL (31.6-35.5); Mean Corpuscular Hemoglobin 31.8 pg (28.0-33.3); Mean Corpuscular Volume 95.3 fL (83.0-100.0); Mean Platelet Volume 9.9 fL (9.4-12.4); Monocytes # 0.7 K/mcL (0.0-1.3); Monocytes % 7.8 %; Neutrophils # 4.8 K/mcL (1.6-8.9); Platelet Count 227 K/mcL (140-400); Red Blood Count 2.96 M/mcL (3.82-4.97); Red Cell Distribution Width 13.4 % (11.5-14.5); Segmented Neutrophils % 56.5 %; White Blood Count 8.4 K/mcL (4.3-11.1)
[2021-03-24 08:09] LABS: BUN/Creatinine Ratio 18 (6-26); Blood Urea Nitrogen 14 mg/dL (6-20); Calcium 8.9 mg/dL (8.6-10.3); Carbon Dioxide 28 mEq/L (23-29); Chloride 99 mEq/L (98-107); Glucose 172 mg/dL (70-105); Osmolality,Calculated 283 (280-300); Potassium 4.1 mEq/L (3.5-5.1); Sodium 134 mEq/L (136-145); eGFR For African Americans > 60 (> 60); eGFR For Non-African Americans > 60 (> 60)
[2021-03-24 08:18] VITALS: BP 92/60; PULSE 93; O2SAT 100
[2021-03-24] MEDS: Insulin LISPRO 300 UNITS/3 ML VIAL SUBQ SCH (09:24)
[2021-03-24] MEDS: Cholecalciferol (D-3) 1,000 UNIT (25MCG) TABLET PO SCH (12:10)
[2021-03-24] MEDS: FLUoxetine 20 MG CAPSULE PO SCH (12:10)
[2021-03-24] MEDS: Gabapentin 300 MG CAPSULE PO SCH (12:10)
[2021-03-24] MEDS: Ascorbic Acid 500 MG TABLET PO SCH (12:11)
[2021-03-24] MEDS: Sennosides/Docusate Sodium TABLET PO SCH (12:11)
[2021-03-24] MEDS: Loratadine 10 MG TABLET PO SCH (12:11)
[2021-03-24] MEDS: Prenatal Vit/FA 1 EACH TABLET PO SCH (12:11)
[2021-03-24] MEDS: Magnesium Oxide 400 MG TABLET PO SCH (12:11)
[2021-03-24] MEDS: Apixaban 5 MG TABLET PO SCH (12:11)
== END 2021-03-24 13:30 | disposition home health service (06) | DRG 323 ==
LOC: EMEROOARM 23:29 → 4WAOSI 23:29 → SUATTDRO 03-19 02:04 → 4WAOSI 03-19 03:07
PROVIDERS: ADMIT Internal Medicine; ATTEND Pharmacist